=== PATIENT | male | born 1935 | race Caucasian/White ===

== ENCOUNTER 2016-10-15 18:19 | Inpatient (IN) | payer MEDICARE ==
[~2016-10-15] VITALS: Ht 172.7 cm; Wt 94.7 kg
--- NOTE | 2016-10-15 18:23 | ED.REPORT ---
HPI-General Illness Date of Service October 15, 2016 ED Provider: Dr. Kingston Pt is an 80 year old male with a hx of HTN, hyperlipidemia and DM presenting to the ED via EMS following a syncopal episode for a few minutes just prior to arrival while at rest. He denies any SOB or chest pain. He does report feeling lightheaded just before the episode and hitting his head when he lost consciousness. En route, medics performed an EKG which showed 2 runs of Vtach lasting approximately 20 beats. He had a stress test 1 week ago and was informed of results today, which showed that the lower chambers of his heart are not getting enough O2 which he was told to follow up for in the next week. Pt reports intermittent dyspnea on exertion for 1 month which is why he had the stress test. He denies any previous syncopal episodes ever before. Pt routinely takes baby aspirin, metformin, and simvastatin. Nursing Notes Stated Complaint: SYNCOPAL Chief Complaint: Syncope Nursing Notes Reviewed: Yes Allergies: Coded Allergies: No Known Allergies (Unverified Allergy, Unknown, 07/31/14) Scheduled Amlodipine (Amlodipine) 5 Mg Tablet 5 MG PO QAM Aspirin (Aspirin) 81 Mg Tablet 81 MG PO HS Chlorthalidone (Chlorthalidone) 25 Mg Tablet 25 MG PO DAILY Lisinopril (Lisinopril) 40 Mg Tablet 20 MG PO BID Metformin (Metformin) 500 Mg Tablet 250 MG PO BID Multivitamin (Multivitamins) 1 Each Capsule 1 EACH PO DAILY [place]-3/Dha/Epa/Fish Oil (Fish Oil 1,000 mg Softgel) 1 Each Capsule 1 EACH PO DAILY Simvastatin (Simvastatin) 40 Mg Tablet 40 MG PO HS General Time Seen by MD: 18:24 Chief Complaint Other (syncope) Hx Obtained From: Patient, EMS Arrived By: Ambulance Sudden in Onset?: Yes Onset Occurred: Just prior to arrival Symptom Duration: Since onset Severity: Current: No pain currently Severity: Maximum: No pain Recent Healthcare: No recent doctor visit, No recent hospitalization Similar Sx Previous: No Past Medical History Past Medical History Reports: Diabetes mellitus, Hyperlipidemia, Hypertension Past Surgical History denies Smoking History Light Tobacco Smoker (2 cigars per day) Social History Drug Use: Denies drug use Ambulatory Status Independent Review of Systems Full Review of Systems Respiratory: Reports: Dyspnea on exertion, Denies: Shortness of breath Cardiovascular: Denies: Chest pain Neurologic: Reports: Lightheaded, Syncope Complete sys rev & neg: except as marked. Physical Exam Vital Signs Vital Signs Date Time Temp Pulse Resp B/P Pulse Ox O2 Delivery O2 Flow Rate FiO2 10/15/16 20:13 76 24 157/69 93 Nasal Cannula 2 10/15/16 19:03 77 26 168/83 96 Nasal Cannula 2 10/15/16 18:30 36.7 83 27 190/75 95 Room Air Initial VS: Reviewed General/Constitutional: Well-developed, Well-nourished ENT: Mucous membranes moist, Conjunctiva normal, No scleral icterus Respiratory: Breath sounds normal, Clear to auscultation, No respiratory distress Cardiovascular: Regular rate & rhythm, Heart sounds normal, Intact distal pulses Abdomen / GI: Soft, Non-tender, No guarding, No rebound, No distention Extremities: Vascular intact, Neuro intact, No swelling, No tenderness Skin: Warm, Dry, No cyanosis Neurologic: Alert, Oriented, Nonfocal Psychiatric: Mood/affect normal, Behavior normal, Normal thought content Head / Eyes: Normocephalic, PERRL, EOMI Abrasion to left forehead Interpretation & Diagnostics Lab Results Interpretation Result Diagram: 10/17/16 0255 10/17/16 0255 Test 10/15/16 18:25 10/15/16 18:48 Prothrombin Time 10.2sec (8.1-12.5) Prothromb Time International Ratio 0.95ratio Activated Partial Thromboplast Time 29.9sec (22.8-33.0) Magnesium Level 2.5mg/dL (1.6-2.6) Pro-B-Type Natriuretic Peptide 568.8pg/mL (0-486) Urine Color Yellow (YELLOW) Urine Appearance Clear (CLEAR,HAZY) Urine pH 5.5 (5.0-8.0) Urine Specific [place] 1.020 (1.003-1.035) Urine Protein 100mg/dL (NEG,TRACE) Urine Glucose (UA) Negativemg/dL (NEGATIVE) Urine Ketones Negativemg/dL (NEGATIVE) Urine Occult Blood Negative (NEGATIVE) Urine Nitrite Negative (NEGATIVE) Urine Bilirubin Negative (NEGATIVE) Urine Urobilinogen Normalmg/dL (NORMAL) Urine Leukocyte Esterase Negative (NEGATIVE) Urine RBC 0-2/hpf (0-2) Urine WBC 0-5/hpf (0-5) Urine Epithelial Cells Occasional/hpf (NONE-MOD) Urine Crystals None seen (NONE SEEN) Urine Bacteria None/hpf (NONE-FEW) Urine Hyaline Casts None/lpf (NONE) Urine Granular Casts None seen (NONE SEEN) Urine Waxy Casts None seen (NONE SEEN) Urine Red Blood Cell Casts None seen (NONE SEEN) Urine White Blood Cell Casts None seen (NONE SEEN) Urine Mucus None seen (None Seen) Urine Trichomonas None seen (NONE SEEN) Urine Yeast None (NONE SEEN) Urinalysis Comment None Urine Culture Reflexed Not indicated ECG Interpretation ECG Interpretation: Prolonged IN interval. LBBB which is new. QRS 118 previously, 117 by EMS. Now 126. Inverted T wave in lead 3 which is new compared to January 2013. Time: 18:30 Interpreted by: ED physician Normal ECG Interpretation: Normal rate (82), Normal sinus rhythm ECG Interpretation: Sinus tachycardia. PVCs. Intraventricular conduction delay. Rate 95. Time: 19:53 Interpreted by: ED physician X-Ray Chest Interpretation Chest Xray Interpretation: IMPRESSION: No acute intrathoracic pathology. Dictated by: Marco Antonio Givens M.D. on 10/15/2016 at 19:07 View: Portable, 1 view Interpretation / Wet Read by: Interpret - Radiologist CT Head Interpretation IMPRESSION: No CT evidence of acute intracranial pathology. Dictated by: Marco Antonio Givens M.D. on 10/15/2016 at 19:21 Study: Head CT no contrast Interpretation / Wet Read by: Interpret - Radiologist Re-Eval/Medical Decision Med Decision/Clinical Course 80-year-old male with a history of hypertension, diabetes, hyperlipidemia, tobacco dependence, and a recent abnormal stress test presents with exertional dyspnea for the past month and an episode of syncope just prior to arrival. His monitor shows runs of monomorphic V. tach up to 20 beats several times in the ambulance. He was initially asymptomatic here, however his EKG reveals a new ?left bundle branch block and inverted T wave in lead 3 which is new when compared with an EKG in 2013. I reviewed his recent echocardiogram and stress test that showed a large fixed inferior defect and also moderate inferolateral reperfusion noted. There is an inferior wall motion defect and ejection fraction consistent with the echo was 45%. Note also on echo that the inferior wall was thin and scarred appearing. I spoke with Dr. Sheriff in cardiology who recommends not going to the Systems Test Analyst because he is not currently short of breath or having chest pain and is otherwise asymptomatic. He will be admitted for further workup with cardiology consult. Dr. Sheriff recommend CK-MB and troponin now and at 3 hours and patient was given metoprolol IV to lower his blood pressure as well as an aspirin on arrival. After reviewing the EKG he did not believe that it was truly a left bundle branch block and rather it was an intraventricular conduction delay just slightly more than the previous EKG After this consultation the patient did have a longer run of monomorphic ventricular tachycardia and became symptomatic with chest pain and shortness of breath stating that he "felt awful" I spoke with Dr. Anil Diamond in cardiology who recommended amiodarone bolus of 150 mg followed by a drip of 1 mg/m for 6 hours followed by 1/2 mg per minute for the next 18 hours. He noted that if the patient had worsening symptoms Dr. Sheriff should be re-consulted. Dr. Maldonado was to see the patient in the morning. Initial troponin and CK-MB returned normal I spoke with Dr. Sheriff at the patient had a second round of symptomatic sustained ventricular tachycardia converted without intervention. He recommended observing after the amiodarone was given but did not advise cardiac catheterization at that time. Patient had no further episodes while in the ER and he was admitted to the hospitalist service Time of Eval: 19:40 Patient Status: Condition improved Re-Evaluation/Progress Note: Pt denies any CP or SOB. Pt had run of Vtach while in the room. Discussed consultation with bag checker and plan for admission. Pt understands and agrees with plan. Time of Eval: 19:49 Patient Status: Condition improved Re-Evaluation/Progress Note: Pt had an episode of symptomatic sustained Vtach with CP and SOB. Time of Eval: 19:51 Patient Status: Condition improved Re-Evaluation/Progress Note: Pt had another short episode of Vtach. Time of Eval: 20:58 Patient Status: Condition improved Re-Evaluation/Progress Note: Pt feeling back to baseline, no other episodes of Vtach. Discussed previous cardiac history. Consultation #1: Referral / Consult Name: Allan Sheriff MD Consulted With: Cardiology Call Returned at: 18:44 Winch Derrick Operator: Will see patient, Agrees with plan Note: Recommends that we get a CKMB now and again in 3 hours. Consultation #2: Referral / Consult Name: Randolph Diamond MD Consulted With: Cardiology Call Returned at: 19:43 Note: Give Amiodarone now and Dr. Maldonado will see him in the morning. Speak to Dr. Sheriff again if pt becomes symptomatic. Consultation #3: Referral / Consult Name: Allan Sheriff MD Consulted With: Cardiology Call Returned at: 19:52 Note: Discussed administration of Amiodarone and recent runs of Vtach. Discussed lab results. Take the pt to the terrazzo laborer if he is still symptomatic after the Amiodarone. Consultation #4: Referral / Consult Name: Safia Medley DO Consulted With: Hospitalist Call Returned at: 21:00 Winch Derrick Operator: Will see patient, Agrees with plan, Accepts admit Counseled Regarding: Diagnosis, Lab results, Need for follow-up, When/why to return to ED Discharge & Departure Primary Impression: Ventricular tachycardia Additional Impressions: Syncope Syncope type: heat syncope Encounter type: initial encounter Qualified Code : T67.1XXA - Heat syncope, initial encounter Exertional dyspnea Coronary artery disease Coronary Disease-Associated Artery/Lesion type: [place] artery [place] vs. transplanted heart: [place] heart Associated angina: with other forms of angina Qualified Code: I25.118 - Atherosclerotic heart disease of [place] coronary artery with other forms of angina pectoris Hypertensive urgency Diabetes mellitus Diabetes mellitus type: type 2 Diabetes mellitus complication status: with circulatory complication Diabetes mellitus complication detail: with other circulatory complications Diabetes mellitus ferry terminal agent insulin use: without alf use Qualified Code: E11.59 - Type 2 diabetes mellitus with other circulatory complications Disposition: ADMITTED TO HOSPITAL Discharge Condition All VS Reviewed: Yes Condition: Improved Referrals: Ramirez Shane MD (PCP) Crit Care Except Billable Proc Time Spent: 30-74 minutes Services Performed: Patient management by me, Time spent at bedside, Reviewing test results, Reviewing imaging, Discussing patient care, Documentation in record, Time with fam/surrogate Critical Care Notes: Patient with multiple cardiac risk factors and recently diagnosed coronary artery disease presenting with recurrent episodes of monomorphic ventricular tachycardia, requiring multiple cardiology consults and emergent treatment with amiodarone to stop his recurrent ventricular tachycardia. Scribe Attestation Portions of this note were transcribed by Lina Mead. IDr. Kingston personally performed the history, physical exam and medical decision-making; I reviewed and confirmed the accuracy of the information in the transcribed note. Signed by: Lina Nishant Mead, 10/15/2016 at 2118. copies to: Ramirez Shane MD, Gary R DO October 15, 2016 18:23 BOSTONRAMIREZ RUCKERNAH October 15, 2016 18:32 Time of Eval: 19:40 Patient Status: Condition improved Re-Evaluation/Progress Note: Pt denies any CP or SOB. Pt had run of Vtach while in the room. Discussed consultation with bag checker and plan for admission. Pt understands and agrees with plan. Time of Eval: 19:49 Patient Status: Condition improved Re-Evaluation/Progress Note: Pt had an episode of symptomatic sustained Vtach with CP and SOB. Time of Eval: 19:51 Patient Status: Condition improved Re-Evaluation/Progress Note: Pt had another short episode of Vtach. Time of Eval: 20:58 Patient Status: Condition improved Re-Evaluation/Progress Note: Pt feeling back to baseline, no other episodes of Vtach. Discussed previous cardiac history. Consultation #1: Referral / Consult Name: Allan Sheriff MD Consulted With: Cardiology Call Returned at: 18:44 Winch Derrick Operator: Will see patient, Agrees with plan Note: Recommends that we get a CKMB now and again in 3 hours. Consultation #2: Referral / Consult Name: Randolph Diamond MD Consulted With: Cardiology Call Returned at: 19:43 Note: Give Amiodarone now and Dr. Maldonado will see him in the morning. Speak to Dr. Sheriff again if pt becomes symptomatic. Consultation #3: Referral / Consult Name: Allan Sheriff MD Consulted With: Cardiology Call Returned at: 19:52 Note: Discussed administration of Amiodarone and recent runs of Vtach. Discussed lab results. Take the pt to the terrazzo laborer if he is still symptomatic after the Amiodarone. Consultation #4: Referral / Consult Name: Safia Medley DO Consulted With: Hospitalist Call Returned at: 21:00 Winch Derrick Operator: Will see patient, Agrees with plan, Accepts admit Counseled Regarding: Diagnosis, Lab results, Need for follow-up, When/why to return to ED Discharge & Departure Primary Impression: Ventricular tachycardia Disposition: ADMITTED TO HOSPITAL Discharge Condition All VS Reviewed: Yes Condition: Improved Referrals: Ramirez Shane MD (PCP) Crit Care Except Billable Proc Time Spent: 30-74 minutes Services Performed: Patient management by me, Time spent at bedside, Reviewing test results, Reviewing imaging, Discussing patient care, Documentation in record, Time with fam/surrogate Scribe Attestation Portions of this note were transcribed by Lina Mead. Dr. Vashti Briscoe personally performed the history, physical exam and medical decision-making; I reviewed and confirmed the accuracy of the information in the transcribed note. Signed by: Nishant Andrews, 10/15/2016 at 2118. copies to: Ramirez Shane MD, Gary R DO October 15, 2016 18:23 LINA MEAD October 15, 2016 18:32 Ramirez Shane MD (PCP) Crit Care Except Billable Proc Time Spent: 30-74 minutes Services Performed: Patient management by me, Time spent at bedside, Reviewing test results, Reviewing imaging, Discussing patient care, Documentation in record, Time with fam/surrogate Scribe Attestation Portions of this note were transcribed by Lina Mead. Dr. Vashti Briscoe personally performed the history, physical exam and medical decision-making; I reviewed and confirmed the accuracy of the information in the transcribed note. Signed by: Nishant Andrews, 10/15/2016 at 2118. copies to: Ramirez Shane MD, Gary R DO October 15, 2016 18:23 LINA MEAD October 15, 2016 18:32
[2016-10-15 18:30] VITALS: BP 190/75; PULSE 83; RESP 27; O2SAT 95
[2016-10-15] MEDS ORDERED: 0.9% Sodium Chloride 1,000 ML IV ONE (18:39)
[2016-10-15] MEDS ORDERED: MeTOProlol 1 mg/mL 5 mL Inj IVPUSH PRN (18:40)
[2016-10-15 18:48] LABS: BASOPHILS % (AUTO) 0.3 % (0-3); EOSINOPHILS % (AUTO) 2.7 % (0-5); MONOCYTES % (AUTO) 9.7 % (4-12); Mean Corpuscular Hemoglobin 30.9 pg (27.0-35.0); Mean Corpuscular Volume 85.5 fL (81-100); NEUTROPHILS % (AUTO) 49.6 % (40-74); Platelet Count 325 bil/L (150-400)
[2016-10-15 18:52] LABS: INR 0.95 ratio
[2016-10-15 18:59] LABS: Magnesium 2.5 mg/dL (1.6-2.6)
[2016-10-15 19:02] LABS: TROPONIN T < 0.010 ug/L (0.0-0.011)
[2016-10-15 19:03] VITALS: BP 168/83; PULSE 77; RESP 26; O2SAT 96
--- NOTE | 2016-10-15 19:10 | DRSVH ---
PROCEDURE: X-RAY CHEST ONE VIEW, PORTABLE ([id number]) INDICATIONS: syncope TECHNIQUE: One view of the chest was acquired. COMPARISON: None. FINDINGS: Surgical changes and devices: Tubing projects over the heart. Defibrillator pad. Lungs and pleura: No pleural effusions or pneumothorax. Lungs are clear. Mediastinum: Mediastinal contours appear normal. Heart size is normal. Vascular calcifications. Bones and chest wall: No suspicious bony lesions. Overlying soft tissues appear unremarkable. IMPRESSION: No acute intrathoracic pathology. Dictated by: Marco Antonio Givens M.D. on 10/15/2016 at 19:07 Approved by: Marco Antonio Givens M.D. on 10/15/2016 at 19:08
[2016-10-15 19:15] LABS: Creatine Kinase 128 U/L (21-232)
--- NOTE | 2016-10-15 19:24 | DRSVH ---
PROCEDURE: CT BRAIN WITHOUT CONTRAST ([id number]) INDICATIONS: syncopal episode with head trauma TECHNIQUE: Noncontrast 4.5 mm thick angled axial sections acquired from the foramen magnum to the vertex, with c oronal reformats. COMPARISON: None. FINDINGS: Image quality: Excellent. CSF spaces: Basal cisterns are patent. No extra-axial fluid collections. Ventricles are normal in size and shape. Brain: No midline shift. No intracranial masses or hemorrhage. Chase-white matter interface is norm al. Skull and face: Calvarium and visualized facial bones are intact, without suspicious lesions. Sinuses: Visualized sinuses and mastoids are clear. IMPRESSION: No CT evidence of acute intracranial pathology. Dictated by: Marco Antonio Givens M.D. on 10/15/2016 at 19:21 Approved by: Marco Antonio Givens M.D. on 10/15/2016 at 19:23
[2016-10-15] MEDS ORDERED: Amiodarone 150 mg/100 mL D5W 150 MG in IV Premix 1 EACH IV ONE (19:50)
[2016-10-15] MEDS ORDERED: ATEN50TA PO (19:53)
[2016-10-15] MEDS ORDERED: MULT1CAP33 PO (19:53)
[2016-10-15] MEDS ORDERED: HYG25 PO (19:53)
[2016-10-15] MEDS ORDERED: OMEG-38 PO (19:53)
[2016-10-15] MEDS ORDERED: METF500T4 PO (19:53)
[2016-10-15] MEDS ORDERED: AMLO5TAB2 PO (19:53)
[2016-10-15] MEDS ORDERED: LISI40TA PO (19:53)
[2016-10-15] MEDS ORDERED: ASPI-973 PO (19:53)
[2016-10-15] MEDS ORDERED: SIMV40TA5 PO (19:53)
[2016-10-15 20:13] VITALS: BP 157/69; PULSE 76; RESP 24; O2SAT 93
[2016-10-15 20:57] LABS: APPEARANCE,URINE CLEAR (CLEAR,HAZY); COLOR,URINE YELLOW (YELLOW); OCCULT BLOOD,URINE NEGATIVE (NEGATIVE); PH,URINE 5.5 (5.0-8.0); UROBILINOGEN,URINE NORMAL (NORMAL)
[2016-10-15 21:01] VITALS: BP 178/78; PULSE 71; RESP 27; O2SAT 92
[2016-10-15] MEDS ORDERED: Amiodarone 360 mg/200 mL D5W 360 MG, Filter, Taxol 14256-28 1 EACH in IV Premix 1 EACH IV SCH (21:10)
[2016-10-15] MEDS ORDERED: D5 0.45% NaCl + KCl 20 mEq/L 1,000 ML IV SCH (21:16)
[2016-10-15] MEDS ORDERED: Alum-Mag Hydrox-Simeth 30 mL Suspension PO PRN (21:20)
[2016-10-15] MEDS ORDERED: Polyethylene Glycol (PEG) 17 Gm Powder PO PRN (21:20)
[2016-10-15] MEDS ORDERED: Ondansetron 2 mg/mL 2 mL Inj IVPUSH PRN (21:20)
[2016-10-15] MEDS ORDERED: Amiodarone 360 mg/200 mL D5W Premix IV ONE (21:34)
[2016-10-15] MEDS ORDERED: IV Premix 1 EACH IV ONE (21:34)
[2016-10-15 22:20] LABS: Creatine Kinase 112 U/L (21-232)
[2016-10-15 22:46] VITALS: BP 166/79; PULSE 81; RESP 24; O2SAT 92
[2016-10-16] VITALS (18 sets, daily range): BP systolic 140–178; BP diastolic 48–83; PULSE 60–70; RESP 19–28; O2SAT 87–98
--- NOTE | 2016-10-16 00:36 | PCM.HPMED ---
Subjective Date of Service October 15, 2016 Primary Provider: Admitting Physician: Safia Medley DO Primary Care Physician: Ramirez Shane MD Attending Physician: Safia Medley DO Admit Status: From the Emergency Department, [facility] Telemetry Chief Complaint: Syncope History of Present Illness: Pt is an 80 year old male with a hx of HTN, hyperlipidemia and DM, tobacco dependence, and a recent abnormal stress test presents to ED via EMS following a syncopal episode for a few minutes just prior to arrival while at rest. Patient reports of having exertional dyspnea for the past month. He denies any SOB or chest pain. He does report feeling lightheaded just before the episode and hitting his head when he lost consciousness. En route, medics performed an EKG which showed 2 runs of V-tach lasting approximately 20 beats. He had a stress test 1 week ago and was informed of results today, which showed that the lower chambers of his heart are not getting enough O2 which he was told to follow up for in the next week. Pt reports intermittent dyspnea on exertion for 1 month which is why he had the stress test. He denies any previous syncopal episodes ever before. Pt routinely takes baby aspirin, metformin, and simvastatin. In the ED vitals T 36.7, P 83, RR 27, BP 190/75, oxygen 95% on room air. Labs significant for WBC 13.1, BUN/creatinine 39, creatinine 1.56, glucose 158. Magnesium 2.5. Troponin 1 negative. UA negative. Chest x-ray and CT head with no acute findings. ECG showed prolonged AL interval. New onset LBBB. QRS 126. Inverted T-wave in lead 3, new findings compared to January 2013. Second ECG showed sinus tachycardia. PVCs. Intraventricular conduction delay. Rate 95. His monitor showed runs of V. tach up to 20 beats several times in the ambulance. Patient has been asymptomatic since arrival. EKG revealing new left bundle branch block and inverted T-wave in V3, new findings when compared with EKG in 2012. Dr. Sheriff of cardiology is consulted, catheterization not recommended at this time due to patient not currently short of breath or having any chest pain. To be admitted for further workup with cardiology consult in the morning. Repeat CK-MB and troponin ordered for 3 hours later. Patient given aspirin on arrival and metoprolol IV for elevated blood pressures. Patient had an episode of symptomatic sustained Vtach with CP and SOB. Dr. Sheriff notified. PCP: Dr. Ramirez Shane Stress test from 10/07/16 IMPRESSION: Nonspecific electrocardiogram changes with pharmacologic stress with baseline height and blunted chronotropic response to exercise noted. Moderately enlarged ventricle with posterior and lateral wall motion abnormality with a reduced ejection fraction of 41% Moderately large inferior and lateral region of perfusion abnormality with moderate improvement in the mild and distal segments of the posterolateral wall with severe fixed hypoperfusion of the basal segments of the inferior and posterior wall. DISCUSSION: This is a abnormal nuclear study suggesting previous infarction in the territory of the distal circumflex or right coronary artery with a moderate amount of residual ischemia. Review of Systems: Respiratory: Reports: Dyspnea on exertion, Denies: Shortness of breath Cardiovascular: Denies: Chest pain Neurologic: Reports: Lightheaded, Syncope Complete sys rev & neg: except as marked. A comprehensive review of systems has been conducted with the patient and found to be negative except what is mentioned above or in the HPI. Allergies Coded Allergies: No Known Allergies (Unverified Allergy, Unknown, 07/31/14) Home Medications Amlodipine (Amlodipine) 5 Mg Tablet 5 MG PO QAM Aspirin (Aspirin) 81 Mg Tablet 81 MG PO HS Atenolol (Atenolol) 50 Mg Tablet 50 MG PO DAILY Chlorthalidone (Chlorthalidone) 25 Mg Tablet 25 MG PO DAILY Lisinopril (Lisinopril) 40 Mg Tablet 20 MG PO BID Metformin (Metformin) 500 Mg Tablet 250 MG PO BID Multivitamin (Multivitamins) 1 Each Capsule 1 EACH PO DAILY [place]-3/Dha/Epa/Fish Oil (Fish Oil 1,000 mg Softgel) 1 Each Capsule 1 EACH PO DAILY Simvastatin (Simvastatin) 40 Mg Tablet 40 MG PO HS PMH Diabetes mellitus, Hyperlipidemia, Hypertension CKD stage III CAD EVON Surgical History Carotid endarterectomy on right 1996 Family History Family history of hypertension, heart disease Father with CAD Mother with hypertension and renal disease Sister with alcoholism Social History Hx Alcohol Use: No Hx Substance Use: No Hx Tobacco Use: Yes Smoking Status: Light Tobacco Smoker Exam Vital Signs Vital Sign - Last Date Time Temp Pulse Resp B/P Pulse Ox O2 Delivery O2 Flow Rate FiO2 10/15/16 21:01 71 27 178/78 92 Nasal Cannula 2 10/15/16 18:30 36.7 Exam General: Mild distress, well-developed, well-nourished, appropriately interactive and cooperative HEENT: Normocephalic, abrasion noted on left forehead. PERRL. Anicteric sclerae , moist conjunctivae. Moist mucous membranes. Neck: Supple with full range of motion. No JVD. Cardiovascular: Irregular rate and rhythm, no murmurs, rubs, or gallops appreciated. pulses equal upper and lower extremity Pulmonary: Clear to auscultation bilaterally with no crackles, wheezes, or rhonchi. Normal respiratory effort with no use of accessory muscles. GI: Bowel tones present. Soft, nontender, nondistended. No hepatosplenomegaly or masses appreciated. Extremities: No clubbing, cyanosis, edema Skin: Normal temperature, turgor, and texture; no rash, ulcers MSK: no edema or erythema of joints, normal ROM Lymphathic: no cervical or supraclavicular lymphadenopathy Neurological: Alert, oriented. non focal. Psychiatric: Normal mood and affect. Lab and Diagnostics Result Diagram: 10/15/16182410/15/161824 X-Rays, CTs and MRIs Chest Xray Interpretation: IMPRESSION: No acute intrathoracic pathology. Dictated by: Marco Antonio Givens M.D. on 10/15/2016 at 19:07 View: Portable, 1 view Interpretation / Wet Read by: Interpret - Radiologist CT Head Interpretation IMPRESSION: No CT evidence of acute intracranial pathology. Dictated by: Marco Antonio Givens M.D. on 10/15/2016 at 19:21 Study: Head CT no contrast Interpretation / Wet Read by: Interpret - Radiologist 12-lead ECG ECG Interpretation: Prolonged AL interval. LBBB which is new. QRS 118 previously, 117 by EMS. Now 126. Inverted T wave in lead 3 which is new compared to January 2013. Time: 18:30 Interpreted by: ED physician Normal ECG Interpretation: Normal rate (82), Normal sinus rhythm ECG Interpretation: Sinus tachycardia. PVCs. Intraventricular conduction delay. Rate 95. Time: 19:53 Interpreted by: ED physician Assessment & Plan Pt is an 80 year old male with a hx of HTN, hyperlipidemia and DM, tobacco dependence, and a recent abnormal stress test presents to ED via EMS following a syncopal episode for a few minutes just prior to arrival while at rest with subsequent EKG and further episodes of VT. Syncope, acute -likely secondary to VT -treat as below Ventricular tachycardia present on admission. Acute. - EKG and telemetry tracings reviewed with runs of VT - Amiodarone bolus/drip started, to be continued - Telemetry - NPO - hold metformin, lisinopril, atenolol to be switched to metoprolol - Repeat CK/MB, troponin both negative - Trend troponin - Echocardiogram in a.m. (ordered) - Patient seen by Dr. Sheriff this evening, Dr. Maldonado to see patient in am - Appreciate cardiology consult time and expertise Chronic conditions: Diabetes mellitus, most recent A1c at 7.0 in Sep, 2016 - metformin held Hyperlipidemia - continue home meds simvastatin Hypertension - continue home in amlodipine, chlorthalidone,lisinopril CKD stage III - BUN/Cr currently at baseline - IVF CAD - continue home meds atenolol, simvastatin, lisinopril EVON Acetaminophen-fever/headache/mild/moderate pain Antiemetics, as needed Bowel regimen, as needed. Patient status: Patient was admitted under inpatient status with expected length of stay greater than two midnights due to severity of presenting symptoms , risk of adverse event, and complexity of treatment plan. Pain Evaluation: Adequate Pain Control GI Prophylaxis: Not indicated VTE Prophylaxis: Sub-Q Heparin (Unfractionated) Resuscitation Status: CPR: Attempt Resuscitation Attending Statement The patient was seen and examined together with house staff on 10/15/2016 and I agree with the history, exam and plan as outlined in the note above. Teresa Kelley DO October 15, 2016 21:16 Safia Medley DO October 16, 2016 04:02 Patient status: Patient was admitted under inpatient status with expected length of stay greater than two midnights due to severity of presenting symptoms , risk of adverse event, and complexity of treatment plan. Pain Evaluation: Adequate Pain Control GI Prophylaxis: Not indicated VTE Prophylaxis: Sub-Q Heparin (Unfractionated) Resuscitation Status: CPR: Attempt Resuscitation Teresa Kelley DO October 15, 2016 21:16
[2016-10-16] MEDS ORDERED: Amiodarone 150 mg/100 mL D5W Premix IV ONE (00:53)
[2016-10-16] MEDS ORDERED: IV Premix 1 EACH IV ONE ×3 (00:53→13:11)
[2016-10-16] MEDS ORDERED: Amiodarone 150 mg/100 mL D5W IV ONE (00:55)
[2016-10-16] MEDS: Heparin 5,000 Unit/mL Inj SUBQ SCH ×4 (01:28→23:59)
[2016-10-16] MEDS ORDERED: 0.9% Sodium Chloride 1,000 ML IV ONE ×2 (02:06→16:39)
[2016-10-16] MEDS: 0.9% Sodium Chloride 1,000 ML IV SCH ×3 (02:34→21:41)
[2016-10-16 03:24] LABS: BASOPHILS % (AUTO) 0.2 % (0-3); EOSINOPHILS % (AUTO) 1.5 % (0-5); MONOCYTES % (AUTO) 9.1 % (4-12); Mean Corpuscular Hemoglobin 30.9 pg (27.0-35.0); Mean Corpuscular Volume 88.7 fL (81-100); NEUTROPHILS % (AUTO) 65.4 % (40-74); Platelet Count 250 bil/L (150-400)
[2016-10-16] MEDS ORDERED: Amiodarone 360 mg/200 mL D5W Premix IV ONE ×2 (04:08→13:11)
--- NOTE | 2016-10-16 04:10 | CONS ---
[address] [address] CONSULTATION REPORT PATIENT: GEETA REED : 1935 MR#: [id number] ADMIT: 10/15/2016 JOB ID: [id number] DATE OF SERVICE: 10/16/2016 CARDIOLOGY CONSULTATION--INITIAL CRITICAL CARE EVALUATION: DATE OF EVALUATION: Sunday, October 16, 2016. CARDIAC CONSULTING PHYSICIAN: Cardiology--Allan Sheriff MD. PROBLEMS: 1. Ventricular tachycardia: a. Syncope--admitted after an episode of syncope at rest this evening. b. Recurrent ventricular tachycardia--long self terminating symptomatic runs with documented and including chest discomfort (200 BPM). c. Monomorphic ventricular tachycardia. 2. Probable coronary artery disease: 1. a. Recent clinical evaluation for new onset exertional dyspnea. b. Abnormal myocardial perfusion scan--ejection fraction 41% with inferior lateral wall motion defect and inferolateral fixed defect and inferolateral ischemia. c. Echocardiogram suggestive of prior myocardial infarction in the akinetic inferior lateral agarwal and mild aortic stenosis and moderate mitral regurgitation. CORONARY ARTERY DISEASE RISK FACTORS: 1. Diabetes--type 2 diabetes for six years with HbA1c 7 and peripheral neuropathy, chronic kidney disease. 2. Cigarettes smoking--remote one pack a day for 25 years and current cigar smoking. 3. History of hypertension--currently significant systolic hypertension noted. Systolic blood pressure 160. 4. History of treated hyperlipidemia. FAMILY HISTORY: Premature coronary disease--father of myocardial infarction at age 57. OTHER PROBLEMS: 1. Obesity and obstructive sleep apnea using CPAP. 2. Peripheral vascular disease--remote carotid endarterectomy over 25 years ago with followup carotid ultrasound on 2013 showing bilateral carotid stenosis 50-69%. 3. "Peripheral neuropathy"--right quadriceps weakness. 4. Chronic kidney disease--baseline creatinine about 1.6. CHIEF COMPLAINT: 1. "Left bundle branch block." 2. Ventricular tachycardia. HISTORY OF PRESENT ILLNESS: I saw this patient on the telemetry unit PCU urgently this evening, Saturday, October 15, 2016, because of recurrent runs of ventricular tachycardia. He had been admitted earlier in the evening after initial presentation by EMS to the emergency department when he fainted without premonitory symptoms while eating dinner at a local restaurant. He has been undergoing a recent work up because of a six week history of new exertional dyspnea. In fact, he had just visited his primary care physician, Dr. 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 The patient tells me he was eating dinner this evening at a restaurant. He felt lightheaded, presyncopal and then fainted. He had a bruise on his forehead. He had no incontinence. 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 He has no prior history of arrhythmia or prior symptoms of arrhythmia such as tachy palpitation, presyncope or syncope. He has been having recurrent episodes of ventricular tachycardia in the hospital including runs up to 18 seconds at 200 BPM, during which time he feels very poorly, nauseous and has some mild associated chest pressure. Initially, the arrhythmia may have been controlled by a 150 mg bolus of amiodarone; but then there was a hiatus before starting and he had subsequent shorter episodes. CAD: The current workup suggests underlying coronary disease. He has no prior defined history of coronary disease. He saw his doctor because he has developed exertional dyspnea in the last six weeks that has limited him at a mowing his lawn and walking uphill from the mailbox. He has not had other symptoms of heart failure such as nocturnal dyspnea or edema. Although he does not complain of chest discomfort initially, on questioning he may note mild retrosternal chest discomfort associated with his dyspnea. He has not had severe prolonged or resting episodes. Regarding possible other underlying vascular disease, he has a history of carotid endarterectomy in the remote past, but he does not have a history of CVA or current symptoms of TIA. No claudication. Regarding possible dual antiplatelet therapy, he has no current bleeding symptoms, no anticipated upcoming surgery and he reports he is reliable to take mandatory medicines as needed. ALLERGIES: No known drug allergies. I elicit no allergy to medical contrast, seafood, fish or shellfish. MEDICATIONS: 1. Norvasc 5 mg daily. 2. ASA 81 mg daily. 3. Atenolol 50 mg daily. 4. Chlorthalidone 25 mg daily. 5. Fish oil 1000 mg daily, 6. Lisinopril 40 mg daily. 7. Metformin 500 mg daily. 8. Multivitamin. 9. Simvastatin 40 mg daily. PAST MEDICAL HISTORY: Acute osteoarthritis with knee pain. REVIEW OF SYSTEMS: I questioned him about a 13 point review of systems which is unremarkable, noncontributory or negative except as noted including: No constitutional symptoms. No history of thyroid disorder. No history of pulmonary disorder including emphysema or asthma or wheezing. No history of GI disorder including indigestion, hepatitis jaundice or ulcer. PERSONAL AND SOCIAL HISTORY: Alcohol: He reports occasional alcohol use, including wine with dinner and an occasional scotch. Family: She lives with his and has three children including two locally. 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 FAMILY HISTORY: Premature coronary disease in the father. PHYSICAL EXAMINATION: General appearance: A pleasant, robust appearing elderly man who is comfortable at rest on the telemetry. He has frequent nonsustained runs of ventricular tachycardia and one long self terminating run without that he noted symptomatically. Vital signs. Blood pressure 160/58 with a heart rate 81 regular in sinus rhythm. Respiratory rate 20 and he appears mildly dyspneic. SpO2 87 and 92% on 4 L nasal cannula. Afebrile. Weight 95 kg. Neurologic and mental status: No overt focal neurologic defect noted. He is alert, oriented, appropriate and conversant. HEENT: PERRL. Conjunctivae pink. Sclerae not icteric. Mouth and mucous membranes intact. Neck: Carotid upstroke difficult to feel bilaterally, but no bruit. Note right carotid endarterectomy scar. Jugular venous pressure difficult to assess due to habitus. No palpable cervical lymphadenopathy. No palpable thyromegaly. Lungs: Clear to auscultation bilaterally. Cardiac: No chest wall tenderness. Note distant heart sounds. Regular rhythm and there is no loud murmur heard. Abdomen: Markedly obese but otherwise unremarkable examination without tenderness, mass, hepatosplenomegaly or bruit of abdominal aortic aneurysm. Extremities: No edema. Pedal pulses difficult to feel bilaterally. DIAGNOSTIC STUDIES: ELECTROCARDIOGRAM: I reviewed the serial ECGs done including a prior ECG and current ECGs which show mild nonspecific IVCD. There was an initial question of new left bundle branch block but the ECG is very similar to prior ECGs and not typical of left bundle branch block. Note sinus rhythm with underlying first degree heart block and a nondiagnostic Q-wave in lead 3 that may correlate with his apparent prior clinically unrecognized inferior myocardial infarction. QT intact. CHEST X-RAY: The chest x-ray film shows cardiomegaly and borderline pulmonary venous hypertension but no overt heart failure. LABORATORY: CBC includes WBC 13,100 with hemoglobin 14.7, hematocrit 40.7, normal indices and platelet count 225,000. INR 0.95. Chemistries include potassium 4.2, BUN 39, creatinine 1.56. Estimated GFR 46. Glucose 158. Magnesium 2.5. LFT unremarkable. Initial serial cardiac enzymes done twice include normal CK total 128, normal CK-MB 4.2 and normal troponin less than 0.010. BNP elevated at 568. ECHOCARDIOGRAM: I reviewed the report of the echocardiogram done March 2016 that shows mild to moderate left ventricular dysfunction with ejection fraction 41% and inferior lateral wall motion defect. There is also mild aortic stenosis with mean aortic valve gradient 13 and calculated JUAN 1.4, as well as report of moderate mitral regurgitation and diastolic dysfunction. MYOCARDIAL PERFUSION SCAN: I reviewed the report of a recent myocardial perfusion scan. He had a limited exercise ability and converted to Lexiscan. There was a large fixed inferior defect and also moderate inferolateral reperfusion noted. There is an inferior wall motion defect and ejection fraction consistent with the echo was 45%. Note also on echo that the inferior wall was thin and scarred appearing. ASSESSMENT: I discussed the findings, impressions and management considerations with the patient (no family present), with the emergency department staff and with the hospitalist team includin. Symptomatic ventricular tachycardia with syncope and recurrent ventricular tachycardia: He had syncope this evening and a it appears highly likely to be due to the documented very rapid ventricular tachycardia and ventricular tachycardia appears to be monomorphic and may be associated with prior scar as well as current ischemia. It appears to be initially clinically controlled by amiodarone. We discussed the high risk associated with this symptomatic life threatening tachycardia. Electrolytes appear to be in order. Treatment considerations include additional amiodarone and also lidocaine and beta-lenny can be can be used if needed. Workup will focus on evaluation of his coronary disease and then consideration of electrophysiology evaluation including for defibrillator. 2. CAD: The current clinical impression is high likelihood of coronary disease that may be a factor in his ventricular tachycardia as well. In the setting of diabetes and clinical evidence of prior inferior infarction, there is a high likelihood of multivessel disease that may even raise consideration of coronary bypass. Evaluation will proceed with cardiac catheterization. I discussed with him the recommendation to proceed to urgent coronary angiogram for definitive diagnosis and to guide treatment options including medical therapy, percutaneous coronary intervention or transfer for coronary bypass surgery if needed. We discussed the procedure including risks and complications. We discussed bleeding, infection, blood clots as well as injury to nerve. artery, vein or kidney and also arrhythmia, drug reaction or others. We discussed the increased risk of renal injury in the setting of diabetes and chronic kidney disease. We discussed treatment as needed including surgery, pacemaker, transfusion. We also discussed more serious complications that can occur including stroke, heart attack, cardiac arrest, or emergency surgery including transfer for coronary bypass surgery. After discussion and questions he signed informed consent to proceed. RECOMMENDATIONS: 1. CCU level care with defibrillator patches. 2. Coronary angiogram--plan catheterization in a.m. or more urgently if needed. 3. Hydration prior to catheterization in view of his chronic kidney disease and monitor for heart failure given his mild dyspnea, even though there is no overt heart failure now. 4. OMT--optimal guideline directed medical therapy including aspirin, beta lenny to metoprolol, high intensity statin with Lipitor 80 mg daily, hold BENITA inhibitor prior to catheterization. 5. Ventricular tachycardia--continue amiodarone IV loading protocol and consider if needed to use additional amiodarone IV as well as lidocaine and beta lenny.
[2016-10-16] MEDS: Sodium Chloride LOK Flush 10 mL Syringe IVFLUSH SCH ×3 (08:30→23:59)
--- NOTE | 2016-10-16 09:47 | PCM.PNMED ---
Subjective Date of Service October 16, 2016 Subjective Pt is an 80 year old male with a hx of HTN, hyperlipidemia and DM, tobacco dependence, and a recent abnormal stress test presents to ED via EMS following a syncopal episode for a few minutes just prior to arrival while at rest. Patient reported of having exertional dyspnea for the past month. He reports that he has not had chest pain, dyspnea, or palpitations since around midnight. He feels better this morning. Exam Vital Signs Vital Sign - Last Date Time Temp Pulse Resp B/P Pulse Ox O2 Delivery O2 Flow Rate FiO2 10/16/16 05:33 60 10/16/16 04:51 36.9 19 140/48 95 Nasal Cannula 4.00 Intake and Output 10/15/16 10/15/16 10/16/16 Cumulative From/Thru 15:00 23:00 07:00 10/15/16 18:30 - 10/16/16 06:25 Intake Total 1000 ml 811 ml 1811 ml Output Total 1150 ml 1150 ml Balance 1000 ml -339 ml 661 ml Intake Oral 0 ml 0 ml IV Total 1000 ml 811 ml 1811 ml Output Urine Total 1150 ml 1150 ml Exam General: No acute distress, well-developed, well-nourished, appropriately interactive and cooperative HEENT: Normocephalic, abrasion noted on left forehead. PERRL. Anicteric sclerae , moist conjunctivae. Moist mucous membranes. Neck: Supple with full range of motion. No JVD. Cardiovascular: Regular rate and rhythm, no murmurs, rubs, or gallops appreciated. pulses equal upper and lower extremity Pulmonary: Clear to auscultation bilaterally with no crackles, wheezes, or rhonchi. Normal respiratory effort with no use of accessory muscles. GI: Bowel tones present. Soft, nontender, nondistended. Extremities: No clubbing, cyanosis, edema Skin: Normal temperature, turgor, and texture; no rash, ulcers MSK: no edema or erythema of joints, normal ROM Lymphathic: no cervical or supraclavicular lymphadenopathy Neurological: Alert, oriented. non focal. Psychiatric: Normal mood and affect. IVs and Medications Medications Reviewed: Medications were reviewed in detail Lab and Diagnostics Result Diagram: 10/16/16 0310 10/16/16 0310 X-Rays, CTs and MRIs Chest Xray Interpretation: IMPRESSION: No acute intrathoracic pathology. Dictated by: Marco Antonio Givens M.D. on 10/15/2016 at 19:07 View: Portable, 1 view Interpretation / Wet Read by: Interpret - Radiologist CT Head Interpretation IMPRESSION: No CT evidence of acute intracranial pathology. Dictated by: Marco Antonio Givens M.D. on 10/15/2016 at 19:21 Study: Head CT no contrast Interpretation / Wet Read by: Interpret - Radiologist 12-lead ECG ECG Interpretation: Prolonged UT interval. LBBB which is new. QRS 118 previously, 117 by EMS. Now 126. Inverted T wave in lead 3 which is new compared to January 2013. Time: 18:30 Interpreted by: ED physician Normal ECG Interpretation: Normal rate (82), Normal sinus rhythm ECG Interpretation: Sinus tachycardia. PVCs. Intraventricular conduction delay. Rate 95. Time: 19:53 Interpreted by: ED physician Cardiac Echo Impressions Echocardiogram Report Interpretation Summary 1) Mildly enlarged left ventricle with mildly to moderate reduced systolic function (EF about 40%). 2) Basal inferior wall and basal to mid inferolateral wall are akinetic. 3) Normal right ventricular size and function. 4) Moderate aortic stenosis present (valve area 1.1cm2, mean gradient 14.6mmHg, severity ratio 0.30). 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 6) Compared to the Echo done 03/26/2016, aortic stenosis has progressed from mild to moderate range and LV is dilated on today's study. Reading Physician:10 :29 AM Assessment & Plan Pt is an 80 year old male with a hx of HTN, hyperlipidemia and DM, tobacco dependence, and a recent abnormal stress test presents to ED via EMS following a syncopal episode for a few minutes just prior to arrival while at rest with subsequent EKG and further episodes of VT. Syncope, resolved -likely secondary to ventricular tachycardia -treat as below Ventricular tachycardia present on admission. Stable. - EKG and telemetry tracings reviewed with runs of VT - Echocardiogram performed and showed worsening aortic stenosis and a dilated left ventricle - Repeated CK/MB, troponin both negative - Amiodarone bolus/drip started, to be continued per cardiology - Telemetry - NPO under cardiac catheterization with coronary angiogram - Hold metformin, lisinopril, atenolol to be switched to metoprolol - Patient seen by Dr. Sheriff this evening, Dr. Maldonado to see patient in morning - Appreciate cardiology consult time and expertise - Discussed with Dr. Sheriff, metoprolol added in addition to amiodarone. Will continue loading dose of amiodarone by IV for total of 24 hours. Review tomorrow morning and switch to PO amiodarone 400 mg BID for 1 week then 200 mg BID. If additional control is needed, add lidocaine. - Repeat EKG in the morning to check QT interval. - Electrophysiology consulted. ICD placement for secondary prevention scheduled for Tuesday. Chronic conditions: CAD - switched to atorvastatin - switched to metoprolol Systolic congestive heart failure - echocardiogram showed EF 40% - continue statin, aspirin, and beta lenny. Resume BENITA inhibitor in 1-2 days after cardiac cath. Peripheral artery disease - Right superficial femoral artery lesion visualized during cardiac cath - Will need an ankle brachial index CKD stage III - BUN/Cr currently at baseline - Hold lisinopril - IV fluids after cardiac catheterization Diabetes mellitus, most recent A1c at 7.0 in Sep, 2016 - metformin held - once pt has a diet after procedure, add insulin Hyperlipidemia - switched to atorvastatin Hypertension - continue home amlodipine and chlorthalidone EVON - pt's will bring CPAP today Acetaminophen-fever/headache/mild/moderate pain Antiemetics, as needed Bowel regimen, as needed. GI Prophylaxis: Not indicated VTE Prophylaxis: Sub-Q Heparin (Unfractionated) Resuscitation Status: CPR: Attempt Resuscitation Attending Statement Patient seen and examined with house staff. Agree with all attached documentation. My Wick DO October 16, 2016 07:43 Patrick Pretty MD October 17, 2016 07:40
--- NOTE | 2016-10-16 10:29 | DRSVH ---
[facility] [address] [place] [address] Echocardiogram Report Name: GEETA REED Date: 10/16/2016 Height: 68 in Hospital [facility] Weight: 214 lb Gender: Male BSA: 2.1 m2 : 1935 Age: 80 yrs Reason For Study: Syncope, V-tach Ordering Physician: [facility] Performed By: Siddhartha Barnes Referring Physician: MICK LNUA Interpretation Summary 1) Mildly enlarged left ventricle with mildly to moderate reduced systolic function (EF about 40%). 2) Basal inferior wall and basal to mid inferolateral wall are akinetic. 3) Normal right ventricular size and function. 4) Moderate aortic stenosis present (valve area 1.1cm2, mean gradient 14.6mmHg, severity ratio 0.30). 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 6) Compared to the Echo done 03/26/2016, aortic stenosis has progressed from mild to moderate range and LV is dilated on today's study. Procedure: A two-dimensional transthoracic echocardiogram with color flow and Doppler was performed. The study quality was technically adequate. Comparison is made with the echocardiogram of 03/26/16. The patient was in normal sinus rhythm during the exam. Left Ventricle: The left ventricle is mildly dilated. There is normal left ventricular wall thickness. Proximal septal thickening is noted. Left ventricular systolic function is mild to moderately reduced. Left ventricular ejection fraction is estimated to be 40 +/- 5%. Basal inferior wall and basal to mid inferolateral wall are akinetic. Assessment of diastolic parameters suggests a pseudonormalization pattern, consistent with elevated filling pressures. Right Ventricle: The right ventricle is normal in size, thickness and function. Atria: The left atrium is moderately dilated. Right atrial size is normal. The interatrial septum is intact with no evidence for an atrial septal defect. Mitral Valve: The mitral valve leaflets are slightly calcified. PMVL appears fixed. There is mild mitral stenosis. There is moderate mitral regurgitation. Aortic Valve: The aortic valve is moderately calcified. The peak aortic velocity is 2.4 m/sec. The aortic valve mean gradient is 15 mmHg. The calculated aortic valve area is 1.1 cm2. There is moderate aortic stenosis. There is mild aortic regurgitation. Tricuspid Valve: The tricuspid valve is not well visualized, but is grossly normal. Pulmonary artery pressures cannot be estimated because of the lack of a measurable TR jet velocity. Pulmonic Valve: The pulmonic valve is not well seen, but is grossly normal. There is mild pulmonic regurgitation. Great Vessels: The aortic root is normal size. The dimensions of the ascending aorta are normal. The pulmonary artery is normal size. The IVC is dilated (diameter is greater than 2.1 cm) yet it collapses greater than 50% with a sniff. This suggests a right atrial pressure of 8 mm Hg. Pericardium/ Pleura There is no pericardial effusion. There is no pleural effusion. MMode/2D Measurements & Calculations LVIDd: 5.9 cm RA long axis LVOT diam LVIDs: 5.2 cm LA A2 area: 23.2 cm FS: 10.8 % LA A4 area: 23.5 cm RA area Ao root diam EPSS: 0.96 cm LA length (vol): 5.2 cm IVSd: 1.00 cm LA vol: 88.9 ml : 19.6 cm asc Aorta LVPWd: 0.65 cm LA vol index RA vol: 59.6 mlDiam: 3.0 cm RA : 28.4 mm2 IVC diam: 2.3 cm LV portillo. diameter/BSA LV sys. diameter/BSA TAPSE: 2.9 cm (cm/m^2): 2.8 (cm/m^2): 2.5 Doppler Measurements & Calculations Ao V2 max MV E max carlitos MV E/A: 1.4 PA V2 max : 240.4 cm/sec : 163.6 cm/sec Med Peak E' Carlitos : 80.8 cm/sec Ao max PG MV A max carlitos PA mean PG : 23.1 mmHg : 118.8 cm/sec E/E' med: 55.5 : 1.7 mmHg Ao mean PG Lat Peak E' Carlitos : 14.6 mmHg MVA(VTI): 1.5 cm LVOT Max Carlitos MR ERO: 0.27 cm2 E/E' lat: 28.3 : 59.1 cm/sec E/e' average JUAN(I,D): 1.1 cm sev ratio MV V2 mean Ao V2 mean LV V1 max PG MR flow rate : 106.2 cm/sec : 185.3 cm/sec : 149.7 cm3/sec MV mean PG Ao V2 VTI: 62.2 cm LV V1 VTI MR PISA radius JUAN(V,D): 0.93 cm2 : 18.8 cm MV V2 VTI MV dec time : 0.17 sec PA V2 mean JUAN indexed to BSA : 63.4 cm/sec (cm^2/m^2): 0.54 PA pr(Accel) : 38.5 mmHg Reading Physician:10:29 AM
[2016-10-16] MEDS ORDERED: Nitroglycerin 50,000 mcg/250 mL D5W Premix IV ONE (11:58)
[2016-10-16] MEDS ORDERED: Heparin 5,000 Units/500 mL NS Premix IV ONE (11:58)
[2016-10-16] MEDS ORDERED: Heparin 1,000 Units/500 mL NS Premix IV ONE (11:58)
[2016-10-16] MEDS ORDERED: 0.9% Sodium Chloride 1,000 ML ONE (11:58)
[2016-10-16] MEDS ORDERED: Heparin 10,000 Unit/1,000 mL NS Premix IV ONE (11:58)
[2016-10-16] MEDS ORDERED: Heparin 1,000 Unit/mL 10 mL Inj ONE (11:58)
[2016-10-16] MEDS ORDERED: fentaNYL-PF 50 mCg/mL 2 mL Inj ONE (12:40)
[2016-10-16] MEDS ORDERED: Atropine 1 mg/10 mL (Code) Syringe ONE (13:38)
--- NOTE | 2016-10-16 16:03 | CS94 ---
[address] [address] DIAGNOSTIC CARDIAC CATHETERIZATION PATIENT: GEETA REED : 1935 MR#: [id number] ADMIT: 10/15/2016 JOB ID: [id number] PROCEDURE NOTE -- CARDIAC CATHETERIZATION LABORATORY: SERVICE DATE: Sunday, October 16, 2016 SIGNAL PROCESSING ENGINEER: Allan Sheriff MD PROCEDURES: 1. Coronary angiogram -- urgent. 2. Left heart catheterization (LHC) -- pressure measurement. CLINICAL DETAILS: This 80-year-old man with no prior history of heart disease -- but underlying hypertension, hyperlipidemia and diabetes with chronic kidney disease and baseline creatinine 1.6 -- was admitted yesterday after syncope at rest. He was found to have sustained self terminating runs of monomorphic ventricular tachycardia at nearly 200 bpm that were controlled with intravenous amiodarone loading protocol. He had in fact recently been undergoing cardiac workup by his primary physician because of the recent onset of exertional dyspnea and exertional chest pressure which was a less prominent symptom. Electrocardiogram shows nonspecific IVCD with Q-wave only in lead 3. Echocardiogram shows mild to moderate left ventricular dysfunction with ejection fraction 40% to 45%; as well as inferolateral akinesis and an apparent scarring; and also mild to moderate aortic stenosis with mean AVG about 14. Myocardial perfusion scan showed a moderate size fixed inferolateral defect as well as a moderate sized inferolateral region of reperfusion consistent with ischemia. PROCEDURAL DETAILS: I discussed with him and his family regarding the findings, impressions and management considerations including the recommendation to proceed with urgent coronary angiography and to guide for definitive diagnosis and to guide treatment decisions including medical therapy, percutaneous coronary intervention or coronary bypass surgery if needed. We discussed the procedure including possible risks and complications. We discussed after questions and discussion, he signed informed consent to proceed. He was brought to the catheterization laboratory NPO where he was prepped sterilely and draped for the procedure after having pre-procedure hydration for his moderate to severe chronic kidney disease. CORONARY ANGIOGRAM: Arterial access was obtained without difficulty in the right common femoral artery using fluoroscopic localization over the femoral head and modified Seldinger technique to insert a long 25 cm 6-[place]ine[place] side-arm sheath. Initially, a Pictrition App wire was required to navigate the aortoilio circulation; and catheters were advanced and exchanged over exchange length 0.035 inch J-tipped guidewire. The left coronary artery was engaged with a 6-[place] JL-4 catheter. Then, the right coronary artery was engaged with a 6-[place] JR-4 catheter. LHC: The catheter entered the left ventricle; and pressure measurements were made; but no LV angiogram was done. Procedure without difficulty. Patient tolerated procedure well. No complications. Only 80 cc of contrast were used. A side-arm sheath angiogram shows peripheral vascular disease with a severe lesion in the right SFA at the bifurcation with profunda. Access is low near the bifurcation or in the profunda. Arterial hemostasis was obtained without difficulty using manual pressure. The patient was transferred from the catheterization laboratory, asymptomatic and stable back to the CCU for ongoing care including by the primary hospitalist team. I discussed the procedure findings and management considerations with the patient as well as his multiple family members; and with the hospitalist team; and with Cardiology including with Electrophysiology. FINDINGS: 1. LMCA: Intact. The left main coronary artery is a large vessel with modest distal atherosclerotic narrowing 30% to 40%. There is no obstructive coronary disease. 2. LAD: Intact without significant atherosclerotic lesions. The left anterior descending coronary artery is a large transapical vessel. There is mild to moderate diffuse atherosclerotic plaquing. The LAD distribution includes a large diagonal with proximal tortuosity and atherosclerotic plaquing but no angiographically significant lesions. 3. LCX: Note occluded mid LCX. The left circumflex coronary artery is occluded after the first obtuse marginal which is a moderate to large size vessel (2-2.5 mm). There are collaterals that appear to be primarily from the diagonal that are not robust; but faintly opacified distal LCX branches including another OM vessel. 4. RCA: Dominant. Note severe ostial disease (no pressure damping however). The right coronary artery is occluded proximally after the takeoff of conus branch. There are [id number] collaterals primarily from septal agricultural equipment operator branches that opacify the distal RCA including a long RV branch. Additionally there is a faint [id number] collateral from the conus that probably faintly feeds the circumflex distribution. 5. LHC: LVED 27 (pre A 22); and no significant systolic gradient on pullback across the aortic valve. CONCLUSIONS: 1. Coronary artery disease (CAD): Two-vessel CAD -- including occluded mid circumflex with left to right collaterals and right to left collaterals; as well as intact LAD (left anterior descending) distribution; and occluded proximal RCA with [id number] collaterals to the distal RCA (right coronary artery) into an RV (right ventricle) branch. 2. Elevated LVEP. RECOMMENDATIONS: COMMENT: In the clinical context of his recent angina and exertional dyspnea with mild to moderate LV dysfunction and ischemia/scar in the inferolateral distribution, the coronary anatomy is consistent. There are no easily revascularizable lesions; and both SIGNAL INSPECTOR revascularization or coronary bypass surgery do not seem to offer benefit. Medical therapy is likely the best option including amiodarone for his frequent recurrent ventricular tachycardia. (ICD for secondary prevention. It is discussed with Electrophysiology and seems indicated).
[2016-10-16] MEDS ORDERED: 0.9% Sodium Chloride 250 ML BOLUS IV PRN (16:40)
[2016-10-16] MEDS ORDERED: Sodium Chloride LOK Flush 10 mL Syringe IVFLUSH PRN (16:40)
[2016-10-16] MEDS ORDERED: 0.9% Sodium Chloride 400 ML (4 HRS) IV ONE (16:40)
[2016-10-16] MEDS ORDERED: Atropine 1 mg/10 mL (Code) Syringe IVPUSH PRN (16:40)
[2016-10-16] MEDS ORDERED: Ondansetron 2 mg/mL 2 mL Inj IVPUSH PRN (16:40)
[2016-10-17] VITALS (7 sets, daily range): BP systolic 144–162; BP diastolic 58–103; PULSE 69–77; RESP 14–27; O2SAT 93–97
[2016-10-17 03:09] LABS: Mean Corpuscular Hemoglobin 30.4 pg (27.0-35.0); Mean Corpuscular Volume 89.8 fL (81-100)
[2016-10-17] MEDS: Heparin 5,000 Unit/mL Inj SUBQ SCH ×2 (07:28→16:49)
[2016-10-17] MEDS: Sodium Chloride LOK Flush 10 mL Syringe IVFLUSH SCH ×2 (07:28→16:49)
[2016-10-17] MEDS ORDERED: Furosemide 10 mg/mL 4 mL Inj IVPUSH ONE (11:10)
--- NOTE | 2016-10-17 11:10 | PCM.PNMED ---
Subjective Date of Service October 17, 2016 Subjective He is doing well. He slept well. He is required oxygen which is not the case at home. He does have mild chronic systolic heart failure. No pedal edema. No chest pain, palpitations or arrhythmia. No abdominal pain, nausea, no diarrhea. No overnight events Exam Vital Signs Vital Sign - Last Date Time Temp Pulse Resp B/P Pulse Ox O2 Delivery O2 Flow Rate FiO2 10/17/16 08:30 Supplement Oxygen 10/17/16 08:01 37.1 69 22 151/65 93 6.00 Intake and Output 10/16/16 10/16/16 10/17/16 Cumulative From/Thru 15:00 23:00 07:00 10/15/16 18:30 - 10/17/16 06:23 Intake Total 1420 ml 718 ml 3949 ml Output Total 1000 ml 1275 ml 3425 ml Balance 420 ml -557 ml 524 ml Intake Oral 420 ml 420 ml IV Total 1000 ml 718 ml 3529 ml Output Urine Total 1000 ml 1275 ml 3425 ml # Voids 3 3 Exam Alert and oriented -3, no distress. Fluent speech Anicteric sclera. Lungs are clear with normal rate and effort Heart is regular without murmur gallop or rub Abdomen soft nontender, flat Extremities are free of edema. Skin is free of rash or lesions. IVs and Medications Medications Reviewed: Medications were reviewed in detail Lab and Diagnostics Result Diagram: 10/17/16 0255 10/17/16 025 X-Rays, CTs and MRIs Chest Xray Interpretation: IMPRESSION: No acute intrathoracic pathology. Dictated by: Marco Antonio Givens M.D. on 10/15/2016 at 19:07 View: Portable, 1 view Interpretation / Wet Read by: Interpret - Radiologist CT Head Interpretation IMPRESSION: No CT evidence of acute intracranial pathology. Dictated by: Marco Antonio Givens M.D. on 10/15/2016 at 19:21 Study: Head CT no contrast Interpretation / Wet Read by: Interpret - Radiologist 12-lead ECG ECG Interpretation: Prolonged ID interval. LBBB which is new. QRS 118 previously, 117 by EMS. Now 126. Inverted T wave in lead 3 which is new compared to January 2013. Time: 18:30 Interpreted by: ED physician Normal ECG Interpretation: Normal rate (82), Normal sinus rhythm ECG Interpretation: Sinus tachycardia. PVCs. Intraventricular conduction delay. Rate 95. Time: 19:53 Interpreted by: ED physician Cardiac Echo Impressions Echocardiogram Report Interpretation Summary 1) Mildly enlarged left ventricle with mildly to moderate reduced systolic function (EF about 40%). 2) Basal inferior wall and basal to mid inferolateral wall are akinetic. 3) Normal right ventricular size and function. 4) Moderate aortic stenosis present (valve area 1.1cm2, mean gradient 14.6mmHg, severity ratio 0.30). 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 6) Compared to the Echo done 03/26/2016, aortic stenosis has progressed from mild to moderate range and LV is dilated on today's study. Reading Physician:10 :29 AM Assessment & Plan Pt is an 80 year old male with a hx of HTN, hyperlipidemia and DM, tobacco dependence, and a recent abnormal stress test presents to ED via EMS following a syncopal episode for a few minutes just prior to arrival while at rest with subsequent EKG and further episodes of VT. Syncope, resolved -likely secondary to ventricular tachycardia -treat as below Ventricular tachycardia present on admission. Stable. No recurrent arrhythmia. He is now off from amiodarone drip and on 4 mg by mouth twice a day. - EKG and telemetry tracings reviewed with runs of VT - Echocardiogram performed and showed worsening aortic stenosis and a dilated left ventricle - Repeated CK/MB, troponin both negative - Amiodarone bolus/drip started, to be continued per cardiology - Telemetry - NPO under cardiac catheterization with coronary angiogram - Hold metformin, lisinopril, atenolol to be switched to metoprolol - Patient seen by Dr. Sheriff this evening, Dr. Maldonado to see patient in morning - Appreciate cardiology consult time and expertise - Discussed with Dr. Sheriff, metoprolol added in addition to amiodarone. Will continue loading dose of amiodarone by IV for total of 24 hours. Review tomorrow morning and switch to PO amiodarone 400 mg BID for 1 week then 200 mg BID. If additional control is needed, add lidocaine. - Repeat EKG in the morning to check QT interval. - Electrophysiology consulted. ICD placement for secondary prevention scheduled for Tuesday. Chronic conditions: CAD, POA. Stable. Coronary catheterization revealed two-vessel disease with collateralization but no critical stenoses. - switched to atorvastatin - switched to metoprolol, continue medical management. Acute on chronic Systolic congestive heart failure, new. - echocardiogram showed EF 40% - continue statin, aspirin, and beta lenny. Resume BENITA inhibitor in 1-2 days after cardiac cath. We will resume BENITA inhibitor One day and begin diuresis with IV furosemide today. Peripheral artery disease, POA. Stable - Right superficial femoral artery lesion visualized during cardiac cath - Will need an ankle brachial index CKD stage III, POA. Stable - BUN/Cr currently at baseline - Hold lisinopril - IV fluids after cardiac catheterization Diabetes mellitus, POA and stable. Most recent A1c at 7.0 in Sep, 2016 - metformin held - once pt has a diet after procedure, add insulin Hyperlipidemia , POA and stable. - switched to atorvastatin Hypertension , POA and relatively stable. He has been slightly hypertensive overnight. We will target a systolic less than 140. Will continue current medications and follow after diuresis. - continue home amlodipine and chlorthalidone EVON, POA and stable. - pt's will bring CPAP today Acetaminophen-fever/headache/mild/moderate pain Antiemetics, as needed Bowel regimen, as needed. GI Prophylaxis: Not indicated VTE Prophylaxis: Sub-Q Heparin (Unfractionated) Resuscitation Status: CPR: Attempt Resuscitation Patrick Pretty MD October 17, 2016 11:10
[2016-10-18] VITALS (10 sets, daily range): BP systolic 140–160; BP diastolic 48–74; PULSE 63–79; RESP 18–24; O2SAT 95–99
[2016-10-18] MEDS: Heparin 5,000 Unit/mL Inj SUBQ SCH ×4 (00:45→23:27)
[2016-10-18] MEDS: Sodium Chloride LOK Flush 10 mL Syringe IVFLUSH SCH ×4 (00:45→23:27)
--- NOTE | 2016-10-18 01:22 | PROG NOTE ---
[address] [address] PROGRESS NOTE PATIENT: GEETA REED : 1935 MR#: [id number] ADMIT: 10/15/2016 JOB ID: [id number] CARDIOLOGY CONSULTATION PROGRESS NOTE -- FOLLOW UP INPATIENT VISIT: DATE: 10/17/2016 CONSULTING PHYSICIAN: Cardiology -- Allan Sheriff MD PROBLEMS: 1. Ventricular tachycardia. a. Presenting with syncope. b. Frequent, recurrent, self-terminating ventricular tachycardia, now controlled on amiodarone. c. Monomorphic ventricular tachycardia. 2. Coronary artery disease: a. Two-vessel CAD with chronically occluded circumflex and RCA. b. Ischemic cardiomyopathy, with ejection fraction 40%, including inferior and inferolateral akinesis. HOSPITAL COURSE AND INTERIM PROGRESS: Hospital day three. I saw this 80-year-old man in the CCU unit along with his today, Sunday, October 16, 2016, on Cardiology rounds. I reviewed his hospital course: He has overall been stable and done well. His difficult early course with presenting syncope and recurrent symptomatic self-terminating runs of ventricular tachycardia at 214 BPM have now been well controlled on a loading regimen of intravenous amiodarone (1 g over 24 hours). Yesterday, we accomplished a coronary angiogram which showed chronic two-vessel coronary disease with occluded LCX and occluded RCA, but intact LAD. There is no current target for revascularization by PCI or CAD. I discussed him with the electrophysiology service; and we plan to switch to oral amiodarone, then AICD on Tuesday. He has COPD, and also some hypoxia with oxygen requirement, though he is not symptomatic with dyspnea. The chest x-ray is consistent both with COPD and possibly with mild heart failure. Post catheterization, he has had hydration and good urine output. No problem at the groin access site. OBJECTIVE FINDINGS/EXAMINATION: Vital signs stable. Heart and lungs: Unremarkable. Extremities: Intact RFA access site with mild ecchymosis but no hematoma, bruit, pulsatile mass, and peripheral perfusion is intact but with poor right pedal pulses which may reflect his severe SFA lesion that was noted at catheterization. LABORATORY: Note creatinine has decreased further to 1.25 with hydration. Note BNP on admission was only mildly elevated at 568.8. ASSESSMENT: I discussed the findings, impressions, and management considerations with him as well as with his ; and with the hospitalist team including: Ventricular tachycardia with presenting syncope and recurrent rapid VT controlled on amiodarone in the setting of coronary disease: The overall impression is primarily chronic coronary disease without a current acute event (note serial troponin and CK not elevated). The ventricular tachycardia is monomorphic and may be due to scar substrate noting recent perfusion scan that showed a substantial fixed inferior defect, and also some inferior ischemia with mild LV dysfunction consistent with ischemic cardiomyopathy. I discussed all this at length with the patient and his as well as with his daughter (a stenographer) yesterday. They understand the life-threatening risk of the ventricular tachycardia and plan to treat with amiodarone and with backup ICD protection. RECOMMENDATIONS: 1. Electrophysiology consultation and anticipated ICD, October 19. 2. Please keep n.p.o. for October 19. 3. Switch amiodarone to oral regimen, planning 400 mg p.o. b.i.d. beginning today, October 17, for one week, then decrease. 4. After contrast clears in another 24 hours, consider reinstituting BENITA inhibitors; and low threshold for a trial of diuretic given his oxygen requirement and apparent visible dyspnea, even though he is not symptomatic of dyspnea. 5. Limited activity at present until ICD in place.
[2016-10-18 07:34] LABS: Mean Corpuscular Hemoglobin 30.5 pg (27.0-35.0); Mean Corpuscular Volume 89.8 fL (81-100)
[2016-10-18] MEDS ORDERED: Glucose 40% Oral Gel 15 Gm Tube PO PRN (13:05)
[2016-10-18] MEDS ORDERED: Albuterol 2.5 mg/3 mL Inhalation Solution NEB PRN (16:10)
--- NOTE | 2016-10-18 16:18 | PCM.PNMED ---
Subjective Date of Service October 18, 2016 Subjective Pt is an 80 year old male with a hx of HTN, hyperlipidemia and DM, tobacco dependence, and a recent abnormal stress test presents to ED via EMS following a syncopal episode for a few minutes just prior to arrival while at rest. Patient reported of having exertional dyspnea for the past month. He reports that he feels well this morning. He does not have chest pain, dyspnea , or leg swelling. He has not had a bowel movement yet but has not been eating regularly. He does not have right leg pain. He reports that he usually smokes a cigar daily but has decided to quit. He has never been diagnosed with COPD and has not used inhalers. Exam Vital Signs Vital Sign - Last Date Time Temp Pulse Resp B/P Pulse Ox O2 Delivery O2 Flow Rate FiO2 10/18/16 03:59 37.0 69 18 149/48 96 Nasal Cannula 6.00 Intake and Output 10/17/16 10/17/16 10/18/16 Cumulative From/Thru 15:00 23:00 07:00 10/15/16 18:30 - 10/18/16 06:02 Intake Total 1100 ml 200 ml 5249 ml Output Total 1500 ml 875 ml 5800 ml Balance -400 ml -675 ml -551 ml Intake Oral 1100 ml 200 ml 1720 ml IV Total 3529 ml Output Urine Total 1500 ml 875 ml 5800 ml # Voids 3 # Bowel Movements 0 0 Exam General: No acute distress, well-developed, well-nourished, appropriately interactive and cooperative HEENT: Normocephalic, abrasion noted on left forehead. Anicteric sclerae, moist conjunctivae. Moist mucous membranes. Neck: Supple with full range of motion. No JVD. Cardiovascular: Regular rate and rhythm, systolic ejection murmur grade II/ with no rubs or gallops appreciated. Pulses equal upper extremity. Decreased right dorsalis pedis pulse. Pulmonary: End expiratory wheezes heard at left lower lung montiel. Normal respiratory effort with no use of accessory muscles. GI: Bowel tones present. Soft, nontender, nondistended. Extremities: No clubbing, cyanosis, edema Skin: Normal temperature, turgor, and texture; no rash, ulcers MSK: no edema or erythema of joints, normal ROM Neurological: Alert, oriented. non focal. Psychiatric: Normal mood and affect. IVs and Medications Medications Reviewed: Medications were reviewed in detail Lab and Diagnostics Result Diagram: 10/18/16 0410 10/18/16 0410 X-Rays, CTs and MRIs Chest Xray Interpretation: IMPRESSION: No acute intrathoracic pathology. Dictated by: Marco Antonio Givesn M.D. on 10/15/2016 at 19:07 View: Portable, 1 view Interpretation / Wet Read by: Interpret - Radiologist CT Head Interpretation IMPRESSION: No CT evidence of acute intracranial pathology. Dictated by: Marco Antonio Givens M.D. on 10/15/2016 at 19:21 Study: Head CT no contrast Interpretation / Wet Read by: Interpret - Radiologist 12-lead ECG ECG Interpretation: Prolonged ND interval. LBBB which is new. QRS 118 previously, 117 by EMS. Now 126. Inverted T wave in lead 3 which is new compared to January 2013. Time: 18:30 Interpreted by: ED physician Normal ECG Interpretation: Normal rate (82), Normal sinus rhythm ECG Interpretation: Sinus tachycardia. PVCs. Intraventricular conduction delay. Rate 95. Time: 19:53 Interpreted by: ED physician Cardiac Echo Impressions Echocardiogram Report Interpretation Summary 1) Mildly enlarged left ventricle with mildly to moderate reduced systolic function (EF about 40%). 2) Basal inferior wall and basal to mid inferolateral wall are akinetic. 3) Normal right ventricular size and function. 4) Moderate aortic stenosis present (valve area 1.1cm2, mean gradient 14.6mmHg, severity ratio 0.30). 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 6) Compared to the Echo done 03/26/2016, aortic stenosis has progressed from mild to moderate range and LV is dilated on today's study. Reading Physician:10 :29 AM Assessment & Plan Pt is an 80 year old male with a hx of HTN, hyperlipidemia and DM, tobacco dependence, and a recent abnormal stress test presents to ED via EMS following a syncopal episode for a few minutes just prior to arrival while at rest with subsequent EKG and further episodes of VT. Syncope, resolved -likely secondary to ventricular tachycardia -treat as below Ventricular tachycardia present on admission. Stable. No recurrent arrhythmia. He is now off from amiodarone drip and on 400 mg by mouth twice a day for 1 week. - EKG and telemetry tracings reviewed with runs of VT - Echocardiogram performed and showed worsening aortic stenosis and a dilated left ventricle - Repeated CK/MB, troponin both negative - Telemetry - Patient followed by Dr. Sheriff, and he discussed case with Dr. Wu, ICD placement for secondary prevention scheduled for Tuesday. - Appreciate cardiology consult time and expertise - Discussed with Dr. Sheriff, and if oral amiodarone does not provide enough control then will switch back to IV amiodarone. If amiodarone does not control, then add lidocaine. - Repeat EKG in the morning to check QT interval. Acute hypoxic respiratory failure, active. - Pt does not use oxygen at home. He has been saturating 98% on on 6L by nasal cannula - Pt does not report a history of COPD but was smoking a cigar/day up until he was admitted. He also has systolic congestive heart failure and obstructive sleep apnea and does not regularly wear his CPAP. - He was given a dose of Lasix yesterday without significant improvement. He has wheezing on exam but no lower extremity edema. His has a net output of -551 ml - Albuterol nebulizers as needed - Repeat chest x-ray in the morning Chronic conditions: Coronary artery disease, present on admission. Stable. Coronary catheterization revealed two-vessel disease with collateralization but no critical stenoses. - switched to atorvastatin - switched to metoprolol, continue medical management. Acute on chronic Systolic congestive heart failure, new. - echocardiogram showed EF 40% - continue statin, aspirin, and beta lenny. Resume BENITA inhibitor in 1-2 days after cardiac catheterization. - IV furosemide yesterday - Resume BENITA inhibitor likely tomorrow. Peripheral artery disease, POA. Stable - Right superficial femoral artery lesion visualized during cardiac catheterization - Will need an ankle brachial index and further work up at outpatient CKD stage III, POA. Stable - BUN/Cr currently at baseline - Hold lisinopril - IV fluids after cardiac catheterization Diabetes mellitus, POA and stable. Most recent A1c at 7.0 in Sep, 2016 - metformin held - on low dose correctional scale Lispro Hyperlipidemia , POA and stable. - switched to atorvastatin Hypertension , POA and relatively stable. He has been slightly hypertensive overnight. We will target a systolic less than 140. Will continue current medications and follow after diuresis. - continue home amlodipine, chlorthalidone, and metoprolol Obstructive sleep apnea, POA and stable. - Pt refused CPAP last night Acetaminophen-fever/headache/mild/moderate pain Antiemetics, as needed Bowel regimen, as needed. Pain Evaluation: Adequate Pain Control GI Prophylaxis: Not indicated VTE Prophylaxis: Sub-Q Heparin (Unfractionated) Resuscitation Status: CPR: Attempt Resuscitation Attending Statement The patient was seen and examined together with Dr. Wick on 10/18/2016 and I agree with the history, exam and plan as outlined in the note above. . My Wick DO October 18, 2016 08:10 Randolph Aguilar MD Oct 21, 2016 19:22
[2016-10-18] MEDS: Insulin LISPRO 300 Unit/3 mL Inj SUBQ SCH ×2 (17:30→23:27)
[2016-10-19] VITALS (22 sets, daily range): BP systolic 125–184; BP diastolic 56–76; PULSE 62–75; RESP 16–20; O2SAT 91–98
[2016-10-19 03:55] LABS: BASOPHILS % (AUTO) 0.3 % (0-3); EOSINOPHILS % (AUTO) 2.6 % (0-5); MONOCYTES % (AUTO) 12.1 % (4-12); Mean Corpuscular Hemoglobin 30.4 pg (27.0-35.0); Platelet Count 237 bil/L (150-400)
[2016-10-19] MEDS: Insulin LISPRO 300 Unit/3 mL Inj SUBQ SCH ×4 (07:55→22:00)
[2016-10-19] MEDS: Heparin 5,000 Unit/mL Inj SUBQ SCH ×2 (07:55→16:57)
[2016-10-19] MEDS: Sodium Chloride LOK Flush 10 mL Syringe IVFLUSH SCH ×5 (07:57→23:20)
--- NOTE | 2016-10-19 08:52 | DRSVH ---
PROCEDURE: X-RAY CHEST ONE VIEW, PORTABLE ([id number]) INDICATIONS: ?pulmonary edema TECHNIQUE: One view of the chest was acquired. COMPARISON: [facility], CR, XR CHEST 1VW (PORTABLE), 10/15/2016, 18:22. FINDINGS: Surgical changes and devices: None. Lungs and pleura: No pleural effusions or pneumothorax. Bibasilar patchy airspace opacities are pre sent otherwise lungs are clear. Mediastinum: Mediastinal contours appear normal. Heart size is normal. Bones and chest wall: No suspicious bony lesions. Overlying soft tissues appear unremarkable. IMPRESSION: Bibasilar atelectasis versus aspiration or pneumonia. Correlate clinically. Dictated by: Edson Bustillos RRA Interpreted: Jules Oh MD on 10/19/2016 at 8:50 Transcribed by: GLORIA on 10/19/2016 at 8:51 Approved by: Jules Oh M.D. on 10/19/2016 at 10:28
[2016-10-19] MEDS ORDERED: Heparin 10,000 Unit/1,000 mL NS Premix IV ONE (08:57)
[2016-10-19] MEDS ORDERED: Bupivacaine-MPF 0.5% 30 mL Inj ONE (08:57)
[2016-10-19] MEDS ORDERED: Vancomycin 1,000 mg Inj ONE (08:57)
[2016-10-19] MEDS ORDERED: Water for Injection 50 ML IV ONE (08:57)
[2016-10-19] MEDS ORDERED: 0.9% Sodium Chloride 250 ML ONE (08:58)
[2016-10-19] MEDS ORDERED: 0.9% Sodium Chloride 1,000 ML ONE (09:29)
[2016-10-19] MEDS ORDERED: Vancomycin 1,000mg/200 mL NS IV ONE (09:33)
[2016-10-19] MEDS ORDERED: fentaNYL-PF 50 mCg/mL 2 mL Inj ONE (09:34)
[2016-10-19] MEDS ORDERED: 0.9% Sodium Chloride 1,000 ML IV PRN (09:38)
[2016-10-19] MEDS ORDERED: Vancomycin Inj 1,000 MG in IV Premix 1 EACH IV ONE ×2 (09:40→22:45)
[2016-10-19] MEDS ORDERED: Methohexital 10 mg/mL 50 mL Inj ONE (10:16)
--- NOTE | 2016-10-19 11:12 | DRSVH ---
PROCEDURE: X-RAY CHEST ONE VIEW, PORTABLE ([id number]) INDICATIONS: For new leads placed TECHNIQUE: One view of the chest was acquired. COMPARISON: [facility], CR, XR CHEST 1VW (PORTABLE), 10/19/2016, 5:56. FINDINGS: Surgical changes and devices: Interval placement of left chest AICD. Lungs and pleura: No pleural effusions or pneumothorax. Presumed atelectasis involving the lung bas es has resolved and lungs are clear. Mediastinum: Mediastinal contours appear normal. Heart size is normal. Bones and chest wall: No suspicious bony lesions. Overlying soft tissues appear unremarkable. IMPRESSION: No immediate complications status post cardiac pacemaker placement. Dictated by: Edson Bustillos RR Interpreted: Carolyn Mcclellan MD on 10/19/2016 at 11:11 Transcribed by: MANI on 10/19/2016 at 11:12 Approved by: Carolyn Mcclellan MD, PhD on 10/19/2016 at 11:17
--- NOTE | 2016-10-19 11:30 | CONS ---
[address] [address] CONSULTATION REPORT PATIENT: GEETA REED : 1935 MR#: [id number] ADMIT: 10/15/2016 JOB ID: [id number] DATE OF SERVICE: 10/19/2016 IDENTIFICATION/HISTORY: The patient is a pleasant 80-year-old man without prior cardiac history who presented with syncope and was found to be in monomorphic ventricular tachycardia. He did not require shock as he self terminated ultimately after a prolonged period of time. He underwent coronary angiography earlier this weekend and was found to have occlusions of his left circumflex as well as his RCA with extensive collateralization. His ejection fraction was 40%-45%. No intervenable lesions were identified and no troponin elevation was noted. This was not an acute coronary syndrome. I am being asked to comment on his syncope with sustained ventricular tachycardia. He feels well now. He was diuresed over the weekend. He denies any chest pain, pressure, discomfort. He has episodic shortness of breath that resolves within a few seconds. He has intact conduction otherwise and is in normal sinus rhythm. IMPRESSION/RECOMMENDATION: The patient is a pleasant 80-year-old man with extensive coronary artery disease collateralized without intervenable lesions who has consequent [id number] ischemic cardiomyopathy with an ejection of 40%-45%, sustaining syncope in the setting of sustained VT. I recommended secondary prevention single-chamber ICD implant. We discussed the risks and benefits in detail. Ultimately he wishes to proceed. We will maximize his beta blockade and keep him on amiodarone for the short term. PLAN: Single-chamber secondary prevention ICD implant with defibrillation threshold testing. Thank you very much for allowing me to participate in the care of this patient. Please call with any questions. I spent one hour with the patient coordinating his care with greater than 50% of the time spent on counseling.
--- NOTE | 2016-10-19 13:47 | OP ---
[address] [address] OPERATIVE REPORT PATIENT: GEETA REED : 1935 MR#: [id number] ADMIT: 10/15/2016 JOB ID: [id number] DATE OF SURGERY: 10/19/2016 PREOPERATIVE DIAGNOSIS(ES): 1. Ventricular tachycardia. 2. Syncope. 3. Ischemic cardiomyopathy. 4. [place] [employer] class II heart failure symptoms. POSTOPERATIVE DIAGNOSIS(ES): 1. Ventricular tachycardia. 2. Syncope. 3. Ischemic cardiomyopathy. 4. [place] [employer] class II heart failure symptoms. PROCEDURES PERFORMED: 1. Single-chamber secondary prevention ICD implant. 2. Defibrillation threshold testing. 3. Fluoroscopy. 4. Defibrillation threshold testing (VF induction utilizing an implantable defibrillator). SURGEON: Osmel Wu M.D., electrophysiology attending. BAND LINING BANDER: Herbert Jang. IMPLANTED DEVICES: 1. [employer] pulse generator, model YN0002-028, serial #[id number]. 2. RV lead single coil DF4, [employer] 7122Q, 58 cm, serial #[id number]. ANESTHESIA: Bolus dosing of Versed and fentanyl were utilized for appropriate level of sedation. Brevital was utilized for defibrillation threshold testing. INDICATION: The patient is a pleasant 80-year-old man with ischemic heart disease, admitted with ventricular tachycardia and syncope. After discussion of risks and benefits of ICD implantation for secondary prevention of cardiac arrest, he opted to proceed. PROCEDURAL DESCRIPTION: Following informed signed consent, the patient was taken to the EP laboratory in a fasting nonsedated state where he was prepped and draped in usual sterile fashion. The left infraclavicular region was infiltrated with 40 cc of a 50/50 mixture of bupivacaine and lidocaine. Once adequate anesthesia had been achieved, a 3 cm transverse incision was performed. of dissection was carried down to the pectoralis fascia and a pocket was then fashioned using a combination of electrocautery and blunt dissection. Once had been achieved, access to the left lower extremity was done with a micropuncture needle over the first rib to deploy a 0.035, 3 mm J guidewire. Over this, the 7-Wolof tear-away sheath was removed. An active fixation lead and ultimately the RV apex. The lead was affixed in position using associated active fixation screw. It was connected to the external analyzer and demonstrated appropriate sensed R waves, impedance, capture threshold. It was checked to 10 V and there was no evidence of diaphragmatic stimulation. Once the position and redundancy of the leads were confirmed with multiple fluoroscopic views, the leads were anchored to the prepectoralis fascia using associated anchoring sleeve. the pocket was then copiously irrigated with antibiotic solution. The leads were connected to a generator. The generator was placed into the pocket. It was affixed to the floor of the pocket using 1-0 Ti-Cron suture. The incision was closed with running layers of absorbable suture. The wound was dressed with skin adhesive and dressing. At the end the procedure, the needle, sponge, instrument counts were all correct. Defibrillation threshold testing was performed with ventricular fibrillation detection using the patient's device. After appropriate sedation with Brevital and using the DC protocol on the [employer] programmer analyst, ventricular fibrillation was induced with a cycle length of 190 msec. The device sensed appropriately and converted the patient to sinus rhythm with a 25 joule shock. Charge time was 5.6 seconds. Impedance was 84 ohms. COMPLICATIONS: None. ESTIMATED BLOOD LOSS: Negligible. DEVICE MEASURED DATA: 750 ohms, 0.5 V at 0.5 msec. FINAL PROGRAM PARAMETERS: 1. VVI 40 beats per minute. 2. VF zone at 187 beats per minute. ATP during charge, maximum output shocks thereafter. 3. VT 2 zone at 171 beats per minute. ATP followed by shocks. 4. VT monitor zone at 150 beats per minute. IMPRESSION: Successful single-chamber secondary prevention ICD implantation with defibrillation threshold testing and a 10 joule safety margin. PLAN: 1. Stat portable chest x-ray. 2. PA and lateral chest x-ray in the morning. 3. IV vancomycin through tomorrow. 4. Doxycycline 100 mg p.o. daily x7 days starting tomorrow. 5. Wound check in one week. ATTENDING STATEMENT: Osmel Wu M.D., electrophysiology attending, was present for and supervised/performed all aspects of this procedure.
[2016-10-19] MEDS: 0.9% Sodium Chloride 1,000 ML IV SCH ×2 (15:41→22:41)
[2016-10-19] MEDS: Isosorbide Mononitrate 30 mg ER24 Tablet PO SCH (15:41)
--- NOTE | 2016-10-19 16:07 | PCM.PNMED ---
Subjective Date of Service October 19, 2016 Subjective Pt is an 80 year old male with a hx of HTN, hyperlipidemia and DM, tobacco dependence, and a recent abnormal stress test presents to ED via EMS following a syncopal episode for a few minutes just prior to arrival while at rest. Patient reported of having exertional dyspnea for the past month. He reports some discomfort at the pacemaker site but does not have chest pain otherwise. He does not have dyspnea or leg swelling. He has not been able to sleep well here. Exam Vital Signs Vital Sign - Last Date Time Temp Pulse Resp B/P Pulse Ox O2 Delivery O2 Flow Rate FiO2 10/19/16 13:16 36.4 68 16 165/67 91 Room Air 10/19/16 07:39 1.00 Intake and Output 10/18/16 10/18/16 10/19/16 Cumulative From/Thru 15:00 23:00 07:00 10/15/16 18:30 - 10/19/16 06:16 Intake Total 1636 ml 1033 ml 7918 ml Output Total 1025 ml 1225 ml 8050 ml Balance 611 ml -192 ml -132 ml Intake Oral 1636 ml 1033 ml 4389 ml IV Total 3529 ml Output Urine Total 1025 ml 1225 ml 8050 ml # Voids 3 # Bowel Movements 0 0 0 Exam General: No acute distress, well-developed, well-nourished, appropriately interactive and cooperative HEENT: Normocephalic, abrasion noted on left forehead. Neck: Supple with full range of motion. No JVD. Cardiovascular: Regular rate and rhythm, systolic ejection murmur grade II/ with no rubs or gallops appreciated. Pulses equal upper extremity. Decreased right dorsalis pedis pulse. Pulmonary: Clear to auscultation bilaterally without rales, rhonchi, or wheezes.. Normal respiratory effort with no use of accessory muscles. GI: Bowel tones present. Soft, nontender, nondistended. Extremities: No clubbing, cyanosis, edema Skin: Normal temperature, turgor, and texture; no rash, ulcers Neurological: Alert, oriented. non focal. Psychiatric: Normal mood and affect. IVs and Medications Medications Reviewed: Medications were reviewed in detail Lab and Diagnostics Result Diagram: 10/19/16 0320 10/19/16 0320 X-Rays, CTs and MRIs Chest Xray Interpretation: IMPRESSION: No acute intrathoracic pathology. Dictated by: Marco Antonio Givens M.D. on 10/15/2016 at 19:07 View: Portable, 1 view Interpretation / Wet Read by: Interpret - Radiologist CT Head Interpretation IMPRESSION: No CT evidence of acute intracranial pathology. Dictated by: Marco Antonio Givens M.D. on 10/15/2016 at 19:21 Study: Head CT no contrast Interpretation / Wet Read by: Interpret - Radiologist 12-lead ECG ECG Interpretation: Prolonged RI interval. LBBB which is new. QRS 118 previously, 117 by EMS. Now 126. Inverted T wave in lead 3 which is new compared to January 2013. Time: 18:30 Interpreted by: ED physician Normal ECG Interpretation: Normal rate (82), Normal sinus rhythm ECG Interpretation: Sinus tachycardia. PVCs. Intraventricular conduction delay. Rate 95. Time: 19:53 Interpreted by: ED physician Cardiac Echo Impressions Echocardiogram Report Interpretation Summary 1) Mildly enlarged left ventricle with mildly to moderate reduced systolic function (EF about 40%). 2) Basal inferior wall and basal to mid inferolateral wall are akinetic. 3) Normal right ventricular size and function. 4) Moderate aortic stenosis present (valve area 1.1cm2, mean gradient 14.6mmHg, severity ratio 0.30). 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 6) Compared to the Echo done 03/26/2016, aortic stenosis has progressed from mild to moderate range and LV is dilated on today's study. Reading Physician:10 :29 AM Assessment & Plan Pt is an 80 year old male with a hx of HTN, hyperlipidemia and DM, tobacco dependence, and a recent abnormal stress test presents to ED via EMS following a syncopal episode for a few minutes just prior to arrival while at rest with subsequent EKG and further episodes of VT. Ventricular tachycardia present on admission. Stable. No recurrent arrhythmia. - EKG and telemetry tracings reviewed with runs of VT - Echocardiogram performed and showed worsening aortic stenosis and a dilated left ventricle - Repeated CK/MB, troponin both negative - Telemetry - Patient followed by Dr. Sheriff, and he discussed case with Dr. Wu. - Appreciate cardiology consult time and expertise - Discussed with Dr. Sheriff, and if oral amiodarone does not provide enough control then will switch back to IV amiodarone. If amiodarone does not control, then add lidocaine. - ICD placed today for secondary prevention. - Electrophysiology consulted and following. Their time and recommendations are appreciated. Syncope, resolved -likely secondary to ventricular tachycardia -treat as above Acute hypoxic respiratory failure, resolved. - Pt does not use oxygen at home. He had been saturating 98% on on 6L by nasal cannula - Pt does not report a history of COPD but was smoking a cigar/day up until he was admitted. He also has systolic congestive heart failure and obstructive sleep apnea. - He was given a dose of Lasix 2 days ago without significant improvement. His has a net output of -132 ml - Albuterol nebulizers as needed - Continue CPAP at night Chronic conditions: Coronary artery disease, present on admission. Stable. Coronary catheterization revealed two-vessel disease with collateralization but no critical stenoses. - switched to rosuvastatin - switched to metoprolol, continue medical management. Acute on chronic Systolic congestive heart failure, new. - echocardiogram showed EF 40% - continue statin, aspirin, and beta lenny. - Resume BENITA inhibitor pending improved kidney function Hypertension , POA and relatively stable. - continue home amlodipine and metoprolol - Hold lisinopril and chlorthalidone due to kidney function - Imdur added per cardiology Obstructive sleep apnea, POA and stable. - Pt refused CPAP last night Peripheral artery disease, POA. Stable - Right superficial femoral artery lesion visualized during cardiac catheterization - Will need an ankle brachial index and further work up at outpatient Aortic stenosis and mitral regurgitation, moderate, present on admission, stable. - Will need continued monitoring as an outpatient CKD stage III, POA. Stable - BUN/Cr currently at baseline - Hold lisinopril - IV fluids after cardiac catheterization Diabetes mellitus, POA and stable. Most recent A1c at 7.0 in Sep, 2016 - metformin held - on low dose correctional scale Lispro Hyperlipidemia , POA and stable. - switched to rosuvastatin Acetaminophen-fever/headache/mild/moderate pain Antiemetics, as needed Bowel regimen, as needed. Pain Evaluation: Adequate Pain Control GI Prophylaxis: Not indicated VTE Prophylaxis: Sub-Q Heparin (Unfractionated) Resuscitation Status: CPR: Attempt Resuscitation Attending Statement The patient was seen and examined together with Dr. Wick on 10/19/2016 and I agree with the history, exam and plan as outlined in the note above. . My Wick DO October 19, 2016 14:58 Randolph Aguilar MD Oct 21, 2016 19:25
[2016-10-20] VITALS (11 sets, daily range): BP systolic 125–170; BP diastolic 65–78; PULSE 61–80; RESP 16–22; O2SAT 90–96
[2016-10-20] MEDS: Heparin 5,000 Unit/mL Inj SUBQ SCH ×3 (00:46→16:30)
[2016-10-20 04:05] LABS: BASOPHILS % (AUTO) 0.3 % (0-3); EOSINOPHILS % (AUTO) 3.3 % (0-5); MONOCYTES % (AUTO) 10.7 % (4-12); Mean Corpuscular Hemoglobin 30.6 pg (27.0-35.0); NEUTROPHILS % (AUTO) 59.1 % (40-74); Platelet Count 238 bil/L (150-400)
[2016-10-20] MEDS: Isosorbide Mononitrate 30 mg ER24 Tablet PO SCH (07:54)
[2016-10-20] MEDS: Insulin LISPRO 300 Unit/3 mL Inj SUBQ SCH ×4 (07:55→21:57)
[2016-10-20] MEDS: Sodium Chloride LOK Flush 10 mL Syringe IVFLUSH SCH ×4 (07:55→16:48)
[2016-10-20] MEDS: 0.9% Sodium Chloride 1,000 ML IV SCH ×2 (07:55→16:42)
--- NOTE | 2016-10-20 09:02 | DRSVH ---
PROCEDURE: X-RAY CHEST, TWO VIEWS ([id number]) INDICATIONS: For new lead placement TECHNIQUE: 2 views of the chest were acquired. COMPARISON: [facility], CR, XR CHEST 1VW (PORTABLE), 10/19/2016, 10:44. FINDINGS: Surgical changes and devices: Stable position of left chest AICD. Lungs and pleura: No pleural effusions or pneumothorax. Lungs are clear. Mediastinum: Mediastinal contours are normal. Heart size is normal. Bones and chest wall: No suspicious bony abnormalities. Soft tissues appear unremarkable. IMPRESSION: Stable chest post pacer placement. Dictated by: Edson Bustillos RR Interpreted: Jules Oh MD on 10/20/2016 at 9:01 Transcribed by: GLORIA on 10/20/2016 at 9:01 Approved by: Jules Oh M.D. on 10/20/2016 at 10:21
--- NOTE | 2016-10-20 10:05 | PROG NOTE ---
[address] [address] PROGRESS NOTE PATIENT: GEETA REED : 1935 MR#: [id number] ADMIT: 10/15/2016 JOB ID: [id number] DATE: 10/20/2016 SUBJECTIVE: The patient is a very pleasant 80-year-old male, who I am meeting for the first time without any previous cardiac history, although has a longstanding history of hypertension, hyperlipidemia, diabetes, tobacco addiction, and a history of carotid disease. He had an echocardiogram in March 2016 that showed an ejection fraction around 40% to 45% with a scar in the proximal and mid inferoposterior agarwal with associated moderate mitral regurgitation and mild aortic stenosis. He recently has noted exertional dyspnea without any chest pain and underwent a pharmacologic perfusion imaging study on October 07, 2016 that showed an ejection fraction of 41%. Again with inferolateral akinesis that corresponded to a moderately large, partially reversible inferolateral perfusion defect, consistent with previous infarction with modest distal jignesh-infarct ischemia. He was admitted on October 16, 2016 after a syncopal episode with documented prolonged runs of nonsustained monomorphic VT with associated chest discomfort during his episodes, but none otherwise. He was given IV amiodarone with stabilization. His BUN and creatinine on admission was 39 and 1.4 with normal electrolytes and a normal troponin. Repeat echocardiography was essentially unchanged except for slight progression of his aortic stenosis now with a mean gradient of 15 mmHg. He underwent cardiac catheterization, and I have personally reviewed those films. This reveals a 30% to 40% distal left main stenosis with complete occlusion of the left circumflex and RCA with faint collaterals from the LAD which has only mild diffuse disease. There is felt to be no good revascularization targets and therefore has been treated medically. His LVEDP was 27 mmHg and on the basis of this was started on chlorthalidone with diuresis of around 1 L. His creatinine had improved down to 1.25 with a BUN of 20, but now has increased up to 1.8 and 34, respectively and therefore his chlorthalidone was stopped. He underwent successful placement of a single-chamber ICD yesterday without complication. Today, he feels well and has ambulated about the room, but none otherwise. He denies any chest discomfort and has noted no significant dyspnea. He has had no sense of any palpitations, although telemetry continues to show frequent PVCs with occasional couplets and triplets, but nonsustained VT. He denies any edema. PHYSICAL EXAMINATION: A very pleasant, mildly overweight, elderly male, in no distress. HR 75. BP has generally been in the 125-150 range. His weight is inaccurate today. Lungs slightly reduced breath sounds throughout, but no rales or wheeze. CV regular rate and rhythm with a 2/6 systolic ejection murmur, but with normal carotids. There is no obvious JVD. Abdomen mildly obese but nondistended. Extremities warm without edema. LABORATORY: White count this morning is 10.1, hematocrit of 36%. It is down slightly. Potassium is 4.3 with a BUN of 34 and a creatinine 1.8 with a magnesium level 2.0. LFTs are normal. TSH is 1.66. Telemetry shows predominantly sinus rhythm with occasional ventricular ectopy. IMPRESSION: 1. Symptomatic monomorphic ventricular tachycardia. This appears to have been adequately suppressed by amiodarone and he is now protected with an implantable cardioverter defibrillator. I have discussed the case with Dr. Mills, and he recommends continuing his amiodarone at 400 mg b.i.d. until tomorrow at which time he can be discharged on 400 mg daily for 1 week and then down to 200 mg daily thereafter with possible elimination of amiodarone, depending upon success in preventing recurrent symptomatic VT. I discussed with the patient and the family the potential side effects of amiodarone and they understand and are accepting of this. With his chronic obstructive pulmonary disease, I would attempt to try to minimize the amiodarone over time. Electrolytes should be monitored quite closely as well. 2. 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 He appears to be well compensated on exam today and has been started on metoprolol and Imdur as antianginals. Hopefully, this will be successful in preventing his dyspnea, which I suspect was more likely an anginal equivalent. He may require chronic diuretic therapy, but given his current renal insufficiency and exam, I am reluctant to do so at this time. I will have him follow up with Dr. Maldonado in 2-3 weeks for continued monitoring of this. Secondary prevention should be pursued. 3. Acute on chronic renal insufficiency. I suspect this is secondary to his contrast load at the time of catheterization. Hopefully, this will improve. If it returns back to baseline levels, low-dose angiotensin-converting enzyme inhibitor can be considered. 4. Hyperlipidemia. Given the interaction with amiodarone with simvastatin and atorvastatin, I have changed him to rosuvastatin. Repeat lipid panel should be obtained in around 6 weeks. 5. Sleep apnea. I have encouraged him to continue with this. 6. Tobacco addiction. Encouraged to abstain. 7. Diabetes. Management per the hospitalist. RECOMMENDATIONS: 1. Continue current medications and continue to track electrolytes and renal function. 2. If he remains clinically stable with stable laboratory he can be discharged tomorrow on his current regimen with the exception of reducing his amiodarone to 400 mg daily for one week followed by 200 mg daily. 3. The patient will follow up in the device clinic in 1 week with subsequent followup of his arrhythmias by Dr. Wu. 4. I will have the patient follow up with Dr. Maldonado in 2-3 weeks in regards to his underlying ischemic heart disease and other cardiac issues. At this point, I will sign off. If you have any further questions or concerns, please do not hesitate to call. I spent a total of 58 minutes reviewing the patient's medical record including his imaging studies, discussing with Dr. Wu, examining and interviewing the patient, and answering his and his family's questions.
--- NOTE | 2016-10-20 15:21 | PCM.PNMED ---
Subjective Date of Service October 20, 2016 Subjective Pt is an 80 year old male with a hx of HTN, hyperlipidemia and DM, tobacco dependence, and a recent abnormal stress test presents to ED via EMS following a syncopal episode for a few minutes just prior to arrival while at rest. Patient reported of having exertional dyspnea for the past month. He continues to feel better. He does not have chest pain, dyspnea, palpitations , or leg swelling. He has not had a bowel movement yet. Exam Vital Signs Vital Sign - Last Date Time Temp Pulse Resp B/P Pulse Ox O2 Delivery O2 Flow Rate FiO2 10/20/16 14:00 66 16 95 Room Air 10/20/16 11:44 36.8 135/68 10/19/16 21:10 0.00 Intake and Output 10/19/16 10/19/16 10/20/16 Cumulative From/Thru 15:00 23:00 07:00 10/15/16 18:30 - 10/20/16 06:49 Intake Total 500 ml 760 ml 746 ml 9924 ml Output Total 300 ml 800 ml 1050 ml 21539 ml Balance 200 ml -40 ml -304 ml -276 ml Intake Oral 760 ml 5149 ml IV Total 500 ml 746 ml 4775 ml Output Urine Total 300 ml 800 ml 1050 ml 43115 ml # Voids 3 # Bowel Movements 0 0 Exam General: No acute distress, well-developed, well-nourished, appropriately interactive and cooperative HEENT: Normocephalic, eschar noted on left forehead. Neck: Supple with full range of motion. No JVD. Cardiovascular: Regular rate and rhythm, systolic ejection murmur grade II/ with no rubs or gallops appreciated. Pulses equal upper extremity. Decreased right dorsalis pedis pulse. Pulmonary: Clear to auscultation bilaterally without rales, rhonchi, or wheezes.. Normal respiratory effort with no use of accessory muscles. GI: Bowel tones present. Soft, nontender, nondistended. Extremities: No clubbing, cyanosis, edema Skin: Normal temperature, turgor, and texture; no rash, ulcers Neurological: Alert, oriented. non focal. Psychiatric: Normal mood and affect. IVs and Medications Medications Reviewed: Medications were reviewed in detail Lab and Diagnostics Result Diagram: 10/20/16 0345 10/20/16 0345 X-Rays, CTs and MRIs Chest Xray Interpretation: IMPRESSION: No acute intrathoracic pathology. Dictated by: Marco Antonio Givens M.D. on 10/15/2016 at 19:07 View: Portable, 1 view Interpretation / Wet Read by: Interpret - Radiologist CT Head Interpretation IMPRESSION: No CT evidence of acute intracranial pathology. Dictated by: Marco Antonio Givens M.D. on 10/15/2016 at 19:21 Study: Head CT no contrast Interpretation / Wet Read by: Interpret - Radiologist 12-lead ECG ECG Interpretation: Prolonged CO interval. LBBB which is new. QRS 118 previously, 117 by EMS. Now 126. Inverted T wave in lead 3 which is new compared to January 2013. Time: 18:30 Interpreted by: ED physician Normal ECG Interpretation: Normal rate (82), Normal sinus rhythm ECG Interpretation: Sinus tachycardia. PVCs. Intraventricular conduction delay. Rate 95. Time: 19:53 Interpreted by: ED physician Cardiac Echo Impressions Echocardiogram Report Interpretation Summary 1) Mildly enlarged left ventricle with mildly to moderate reduced systolic function (EF about 40%). 2) Basal inferior wall and basal to mid inferolateral wall are akinetic. 3) Normal right ventricular size and function. 4) Moderate aortic stenosis present (valve area 1.1cm2, mean gradient 14.6mmHg, severity ratio 0.30). 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 6) Compared to the Echo done 03/26/2016, aortic stenosis has progressed from mild to moderate range and LV is dilated on today's study. Reading Physician:10 :29 AM Assessment & Plan Pt is an 80 year old male with a hx of HTN, hyperlipidemia and DM, tobacco dependence, and a recent abnormal stress test presents to ED via EMS following a syncopal episode for a few minutes just prior to arrival while at rest with subsequent EKG and further episodes of VT. Ventricular tachycardia present on admission. Stable. No recurrent arrhythmia. - EKG and telemetry tracings reviewed with runs of VT - Echocardiogram performed and showed worsening aortic stenosis and a dilated left ventricle - Repeated CK/MB, troponin both negative - Telemetry - Patient followed by Dr. Sheriff, and he discussed case with Dr. Wu. - Appreciate cardiology consult time and expertise - Discussed with Dr. Jaziel, and if oral amiodarone does not provide enough control then will switch back to IV amiodarone. If amiodarone does not control, then add lidocaine. - ICD placed on 10/19/16 for secondary prevention. - Electrophysiology consulted and following. Their time and recommendations are appreciated. - Cardiology advised to decrease amiodarone to 400 mg once daily tomorrow and to follow up in [address] Wu's office. Syncope, resolved -likely secondary to ventricular tachycardia -treat as above Acute hypoxic respiratory failure, resolved. - Pt does not use oxygen at home. He had been saturating 98% on on 6L by nasal cannula - Pt does not report a history of COPD but was smoking a cigar/day up until he was admitted. He also has systolic congestive heart failure and obstructive sleep apnea. - He was given a dose of Lasix 2 days ago without significant improvement. His has a net output of -132 ml - Albuterol nebulizers as needed - Continue CPAP at night Chronic conditions: Coronary artery disease, present on admission. Stable. Coronary catheterization revealed two-vessel disease with collateralization but no critical stenoses. - switched to rosuvastatin - switched to metoprolol, continue medical management. - Follow up with Dr. Maldonado as an outpatient - Patient is interested in cardiac rehabilitation as an outpatient Acute on chronic Systolic congestive heart failure, new. - echocardiogram showed EF 40% - continue statin, aspirin, and beta lenny. - Resume BENITA inhibitor pending improved kidney function Hypertension , POA and relatively stable. - continue home amlodipine and metoprolol - Hold lisinopril and chlorthalidone due to kidney function - Imdur added per cardiology Obstructive sleep apnea, POA and stable. - Pt refused CPAP last night Peripheral artery disease, POA. Stable - Right superficial femoral artery lesion visualized during cardiac catheterization - Will need an ankle brachial index and further work up at outpatient Aortic stenosis and mitral regurgitation, moderate, present on admission, stable. - Will need continued monitoring as an outpatient CKD stage III, POA. Stable - BUN/Cr likely slightly worsened by contrast during coronary angiogram, vancomycin antibiotics, and diuresis - Hold lisinopril and chlorthalidone - Continue to monitor Diabetes mellitus, POA and stable. Most recent A1c at 7.0 in Sep, 2016 - metformin held - on low dose correctional scale Lispro Hyperlipidemia , POA and stable. - switched to rosuvastatin Acetaminophen-fever/headache/mild/moderate pain Antiemetics, as needed Bowel regimen, as needed. Pain Evaluation: Adequate Pain Control GI Prophylaxis: Not indicated VTE Prophylaxis: Sub-Q Heparin (Unfractionated) Resuscitation Status: CPR: Attempt Resuscitation Attending Statement The patient was seen and examined together with Dr. Wick on 10/20/2016 and I agree with the history, exam and plan as outlined in the note above. . My Wick DO October 20, 2016 15:17 Randolph Aguilar MD Oct 21, 2016 19:25
[2016-10-21] VITALS (7 sets, daily range): BP systolic 136–183; BP diastolic 63–69; PULSE 59–82; RESP 16–20; O2SAT 94–97
[2016-10-21] MEDS: Heparin 5,000 Unit/mL Inj SUBQ SCH ×2 (00:30→09:52)
[2016-10-21] MEDS: Sodium Chloride LOK Flush 10 mL Syringe IVFLUSH SCH ×4 (00:30→09:52)
[2016-10-21] MEDS: 0.9% Sodium Chloride 1,000 ML IV SCH ×2 (02:42→11:56)
[2016-10-21 04:00] LABS: BASOPHILS % (AUTO) 0.3 % (0-3); EOSINOPHILS % (AUTO) 3.2 % (0-5); MONOCYTES % (AUTO) 10.1 % (4-12); Mean Corpuscular Hemoglobin 30.7 pg (27.0-35.0); Mean Corpuscular Volume 89.4 fL (81-100); NEUTROPHILS % (AUTO) 59.3 % (40-74); Platelet Count 240 bil/L (150-400)
[2016-10-21 04:23] LABS: Magnesium 2.1 mg/dL (1.6-2.6)
[2016-10-21] MEDS: Insulin LISPRO 300 Unit/3 mL Inj SUBQ SCH ×3 (08:00→11:56)
[2016-10-21] MEDS ORDERED: 0.9% Sodium Chloride 1,000 ML IV ONE (09:10)
[2016-10-21] MEDS: Isosorbide Mononitrate 30 mg ER24 Tablet PO SCH (09:52)
[2016-10-21] MEDS ORDERED: METO25TA6 PO (13:33)
[2016-10-21] MEDS ORDERED: NITR0.4T SL (13:33)
[2016-10-21] MEDS ORDERED: ISOS30TA4 PO (13:33)
[2016-10-21] MEDS ORDERED: AMIO200T PO (13:33)
[2016-10-21] MEDS ORDERED: CREST10T PO (13:33)
--- NOTE | 2016-10-21 13:54 | PCM.DIMED ---
My Wick 10/21/16 0654: Discharge Instructions Date of Service Oct 21, 2016 Dates of Hospitalization October 15, 2016 at 20:44 Discharge Diagnosis Discharge Diagnosis You had a heart arrhythmia, which caused you to faint. You have been treated with medications and now have a defibrillator. You also have heart disease that is being managed with medications. Diet Discharge Diet: Heart Healthy Activity Discharge Activity: Limited until seen by PCP Call your provider Call your provider for: Fever or Chills, Shortness of breath, Bleeding, Chest pain, Vomitting, Excessive diarrhea, Weakness (unilateral) Patient Instructions Patient Instructions Starting today reduce amiodarone to 400 mg once daily for 1 week (6 more days because you had a dose this morning), and then decrease to 200 mg once per day there after unless notified by your brancher. You can discuss this at your follow up appointment in 1 week. Continue aspirin 81 mg daily and amlodpine 5 mg daily. Start isosorbide mononitrate 30 mg once daily, metoprolol tartrate 25 mg twice per day, and rosuvastatin 40 mg once daily at bedtime. Stop chlorthalidone, lisinopril, and simvastatin. You have also been given a prescription for nitroglycerin sublingual tablets. If you have chest pain, dissolve one tablet underneath your tongues every 5 minutes up to 3 times maximum, and call 911 or have someone take you to the hospital. Do not take at the same time as isosorbide mononitrate. Continue to drink fluids but limit your salt (sodium) intake to 2,000 mg daily. If you notice that you have trouble breathing, swelling in your legs, increased size of your abdomen, or weight gain, please seek medical attention. If you notice pain or numbness in your right leg, please seek medical attention. Follow up with the cardiac rehabilitation clinic when first available. Follow up with Dr. Wu's office in 1 week for a device check and to review your heart rhythm. Follow up with Dr. Maldonado, brancher, in 2-3 weeks for your overall heart health. Follow up with your primary care provider, Dr. Shane, in 7-10 days to review your hospital stay. Please have a basic metabolic panel done on Tuesday to check your kidney function. You can also discuss possibly following up with your car repairer, kidney specialist, sooner than previously scheduled. Keep up the good work with no longer smoking cigars! Follow-up Provider: Ramirez Shane MD Follow-up with PCP in: 1 week Provider: Osmel Wu MD Follow-up in: 1 week Mid-level Provider (F9): Mars Maldonado MD Follow-up with Mid-level in: 2 weeks (2-3 weeks) Cardiac Rehab: Other (when first available) Randolph Aguilar MD 10/21/16 1926: Discharge Instructions Attending's Statement The patient was seen and examined together with Dr. Wick on 10/21/2016 and I agree with the history, exam and plan as outlined in the note above. . My Wick DO Oct 21, 2016 06:54 Randolph Aguilar MD Oct 21, 2016 19:26
--- NOTE | 2016-10-23 17:53 | PCM.DC.MED ---
Discharge Summary Date of Service Oct 23, 2016 Dates of Hospitalization Date of Hospital Admission October 15, 2016 at 20:44 Date of Discharge: Oct 21, 2016 Providers: Admitting Physician: Safia Medley DO Primary Care Physician: Ramirez Shane MD Attending Physician: Safia Medley DO Diagnosis at Time of Discharge Diagnosis at Time of Discharge Ventricular tachycardia Syncope Acute hypoxic respiratory failure Chronic conditions: Coronary artery disease Acute on chronic systolic congestive heart failure Essential hypertension Obstructive sleep apnea Peripheral artery disease Aortic stenosis and mitral regurgitation, moderate Chronic kidney disease stage III Diabetes mellitus type II Hyperlipidemia Consultations Cardiology: Recommended patient follow up with Dr. Maldonado in 2-3 weeks in regards to his underlying ischemic heart disease and other cardiac issues; decrease amiodarone to 400 mg daily for one week followed by 200 mg daily; and patient will follow up in the device clinic in 1 week with subsequent followup of his arrhythmias by Dr. Wu. Electrophysiology: Placed an implantable cardioverter defibrillator for secondary prevention of ventricular tachycardia Procedures XRay, CTs & MRIs Chest Xray Interpretation: IMPRESSION: No acute intrathoracic pathology. Dictated by: Marco Antonio Givens M.D. on 10/15/2016 at 19:07 View: Portable, 1 view Interpretation / Wet Read by: Interpret - Radiologist CT Head Interpretation IMPRESSION: No CT evidence of acute intracranial pathology. Dictated by: Marco Antonio Givens M.D. on 10/15/2016 at 19:21 Study: Head CT no contrast Interpretation / Wet Read by: Interpret - Radiologist ECG 12 Lead ECG Interpretation: Prolonged LA interval. LBBB which is new. QRS 118 previously, 117 by EMS. Now 126. Inverted T wave in lead 3 which is new compared to January 2013. Time: 18:30 Interpreted by: ED physician Normal ECG Interpretation: Normal rate (82), Normal sinus rhythm ECG Interpretation: Sinus tachycardia. PVCs. Intraventricular conduction delay. Rate 95. Time: 19:53 Interpreted by: ED physician Cardiac Echo Impression Echocardiogram Report Interpretation Summary 1) Mildly enlarged left ventricle with mildly to moderate reduced systolic function (EF about 40%). 2) Basal inferior wall and basal to mid inferolateral wall are akinetic. 3) Normal right ventricular size and function. 4) Moderate aortic stenosis present (valve area 1.1cm2, mean gradient 14.6mmHg, severity ratio 0.30). 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 6) Compared to the Echo done 03/26/2016, aortic stenosis has progressed from mild to moderate range and LV is dilated on today's study. Reading Physician:10 :29 AM Invasive Procedures Left heart catheterization with coronary angiogram Implantable cardioverter defibrillator Brief History From the history and physical performed by Dr. Teresa Kelley on 10/16/2016: Pt is an 80 year old male with a hx of HTN, hyperlipidemia and DM, tobacco dependence, and a recent abnormal stress test presents to ED via EMS following a syncopal episode for a few minutes just prior to arrival while at rest. Patient reports of having exertional dyspnea for the past month. He denies any SOB or chest pain. He does report feeling lightheaded just before the episode and hitting his head when he lost consciousness. En route, medics performed an EKG which showed 2 runs of V-tach lasting approximately 20 beats. He had a stress test 1 week ago and was informed of results today, which showed that the lower chambers of his heart are not getting enough O2 which he was told to follow up for in the next week. Pt reports intermittent dyspnea on exertion for 1 month which is why he had the stress test. He denies any previous syncopal episodes ever before. Pt routinely takes baby aspirin, metformin, and simvastatin. In the ED vitals T 36.7, P 83, RR 27, BP 190/75, oxygen 95% on room air. Labs significant for WBC 13.1, BUN/creatinine 39, creatinine 1.56, glucose 158. Magnesium 2.5. Troponin 1 negative. UA negative. Chest x-ray and CT head with no acute findings. ECG showed prolonged LA interval. New onset LBBB. QRS 126. Inverted T-wave in lead 3, new findings compared to January 2013. Second ECG showed sinus tachycardia. PVCs. Intraventricular conduction delay. Rate 95. His monitor showed runs of V. tach up to 20 beats several times in the ambulance. Patient has been asymptomatic since arrival. EKG revealing new left bundle branch block and inverted T-wave in V3, new findings when compared with EKG in 2012. Dr. Sheriff of cardiology is consulted, catheterization not recommended at this time due to patient not currently short of breath or having any chest pain. To be admitted for further workup with cardiology consult in the morning. Repeat CK-MB and troponin ordered for 3 hours later. Patient given aspirin on arrival and metoprolol IV for elevated blood pressures. Patient had an episode of symptomatic sustained Vtach with CP and SOB. Dr. Sheriff notified. PCP: Dr. Ramirez Shane Stress test from 10/07/16 IMPRESSION: Nonspecific electrocardiogram changes with pharmacologic stress with baseline height and blunted chronotropic response to exercise noted. Moderately enlarged ventricle with posterior and lateral wall motion abnormality with a reduced ejection fraction of 41% Moderately large inferior and lateral region of perfusion abnormality with moderate improvement in the mild and distal segments of the posterolateral wall with severe fixed hypoperfusion of the basal segments of the inferior and posterior wall. DISCUSSION: This is a abnormal nuclear study suggesting previous infarction in the territory of the distal circumflex or right coronary artery with a moderate amount of residual ischemia. Hospital Course Patient is an 80 year old male with a history of hypertension, hyperlipidemia, diabetes mellitus, and tobacco dependence presented to emergency department via emergency medical services following a syncopal episode for a few minutes just prior to arrival while at rest with subsequent EKG and further episodes of ventricular tachycardia. Ventricular tachycardia present on admission. Stable. No recurrent arrhythmia. - EKG and telemetry tracings reviewed with runs of ventricular tachycardia - Echocardiogram performed and showed worsening aortic stenosis and a dilated left ventricle - Repeated CK/MB and troponin both were negative - Appreciated cardiology consult time and expertise - Implantable cardioverter defibrillator placed on 10/19/16 for secondary prevention. - Electrophysiology consulted and following. Their time and recommendations were appreciated. - Patient was given amiodarone intravenously followed by amiodarone 400 mg twice per day - Cardiology advised to decrease amiodarone to 400 mg once daily and to follow up in [address] Wu's office. Syncope, resolved -Secondary to ventricular tachycardia as above Acute hypoxic respiratory failure, resolved. - Patient does not use oxygen at home. He had been saturating 98% on on 6L by nasal cannula, but on day of discharge, his oxygen saturation was 94% on room air. - Patient does not report a history of COPD but was smoking a cigar per day up until he was admitted to the hospital. He also has systolic congestive heart failure and obstructive sleep apnea. - He was given a dose of furosemide without significant improvement. He had a net output of -34 ml - Continued CPAP at night Chronic conditions: Coronary artery disease, present on admission, stable. Coronary catheterization revealed two-vessel disease (occluded mid circumflex with left to right collaterals and right to left collaterals; as well as intact LAD (left anterior descending) distribution; and occluded proximal RCA with [id number] collaterals to the distal RCA (right coronary artery) into an RV (right ventricle) branch) but no critical stenoses. -Changed to rosuvastatin 40 mg daily due to less interaction with amiodarone - Changed to metoprolol tartrate 25 mg twice per day and continued aspirin. - Follow up with Dr. Maldonado as an outpatient - Patient is interested in cardiac rehabilitation as an outpatient Acute on chronic systolic congestive heart failure, new. - Echocardiogram showed ejection fraction of 40% - Continued statin, aspirin, and beta lenny - Consider resuming an BENITA inhibitor pending improved or stable kidney function Essential hypertension, present on admission, stable. - Continued home amlodipine 5 mg once daily - Metoprolol tartrate 25 mg twice per day - Held lisinopril and chlorthalidone due to kidney function - Isosorbide mononitrate ER 30 mg once daily Obstructive sleep apnea, present on admission, stable. - Continue CPAP Peripheral artery disease, present on admission, stable - Right superficial femoral artery lesion visualized during cardiac catheterization. Patient was asymptomatic and had a palpable dorsalis pedis pulse. - Will need an ankle brachial index and further work up at outpatient Aortic stenosis and mitral regurgitation, moderate, present on admission, stable. - Will need continued monitoring as an outpatient - Follow up with cardiology as above Chronic kidney disease stage III, present on admission, stable. - BUN/Cr likely slightly worsened by contrast during coronary angiogram, vancomycin antibiotics, and diuresis - Held lisinopril and chlorthalidone and given a fluid bolus Diabetes mellitus type II, present on admission, stable. Most recent A1c at 7.0 in Sep, 2016 - Metformin held during hospitalization and was given low dose correctional scale Lispro Hyperlipidemia, present on admission, stable. - Changed to rosuvastatin as above Mr. Alex Maki is an 80 year old male with a history of hypertension, hyperlipidemia, diabetes mellitus, and tobacco dependence who presented to emergency department via emergency medical services following a syncopal episode for a few minutes just prior to arrival while at rest with subsequent EKG and further episodes of ventricular tachycardia. He was started on amiodarone, which resolved his ventricular tachycardia during his hospitalization. He also underwent a cardiac catheterization with coronary angiogram that showed two-vessel coronary artery disease not appropriate for revascularization and treated with medical management. He had an implantable cardioverter defibrillator placed for secondary prevention. His blood pressure medications were adjusted in light of worsening kidney function, which stabilized on day of discharge. A message was left with Dr. Shane's office on day of discharge 10/23/2016 to notify of patient's discharge. Exam Vital Signs (Last) Date Time Temp Pulse Resp B/P Pulse Ox O2 Delivery O2 Flow Rate FiO2 10/21/16 11:40 36.7 59 18 136/63 94 Room Air 10/19/16 21:10 0.00 Exam General: No acute distress, well-developed, well-nourished, appropriately interactive and cooperative HEENT: Normocephalic, eschar noted on left forehead. Neck: Supple with full range of motion. No JVD. Cardiovascular: Regular rate and rhythm, systolic ejection murmur grade II/ with no rubs or gallops appreciated. Pulses equal upper extremity. Decreased but palpable right dorsalis pedis pulse. Pulmonary: Clear to auscultation bilaterally without rales, rhonchi, or wheezes.. Normal respiratory effort with no use of accessory muscles. GI: Bowel tones present. Soft, nontender, nondistended. Extremities: No clubbing, cyanosis, edema Skin: Normal temperature, turgor, and texture; no rash, ulcers Neurological: Alert, oriented. non focal. Psychiatric: Normal mood and affect. Test 10/15/16 18:25 10/15/16 18:48 10/15/16 21:40 10/15/16 22:00 Prothrombin Time 10.2sec (8.1-12.5) Prothromb Time International Ratio 0.95ratio Activated Partial Thromboplast Time 29.9sec (22.8-33.0) Urine Color Yellow (YELLOW) Urine Appearance Clear (CLEAR,HAZY) Urine pH 5.5 (5.0-8.0) Urine Specific [place] 1.020 (1.003-1.035) Urine Protein 100mg/dL (NEG,TRACE) Urine Glucose (UA) Negativemg/dL (NEGATIVE) Urine Ketones Negativemg/dL (NEGATIVE) Urine Occult Blood Negative (NEGATIVE) Urine Nitrite Negative (NEGATIVE) Urine Bilirubin Negative (NEGATIVE) Urine Urobilinogen Normalmg/dL (NORMAL) Urine Leukocyte Esterase Negative (NEGATIVE) Urine RBC 0-2/hpf (0-2) Urine WBC 0-5/hpf (0-5) Urine Epithelial Cells Occasional/hpf (NONE-MOD) Urine Crystals None seen (NONE SEEN) Urine Bacteria None/hpf (NONE-FEW) Urine Hyaline Casts None/lpf (NONE) Urine Granular Casts None seen (NONE SEEN) Urine Waxy Casts None seen (NONE SEEN) Urine Red Blood Cell Casts None seen (NONE SEEN) Urine White Blood Cell Casts None seen (NONE SEEN) Urine Mucus None seen (None Seen) Urine Trichomonas None seen (NONE SEEN) Urine Yeast None (NONE SEEN) Urinalysis Comment None Urine Culture Reflexed Not indicated Total Creatine Kinase 112U/L (21-232) Creatine Kinase MB 3.9ng/mL (0.0-10.4) Creatine Kinase MB % % (0.0-5.0) Hold Urine Received (Received) Test 10/16/16 08:55 10/19/16 03:20 10/20/16 03:45 10/21/16 03:45 Troponin T 0.010ug/L (0.0-0.011) Pro-B-Type Natriuretic Peptide 400.5pg/mL (0-486) Procalcitonin 0.14ng/mL (0.00-0.08) Thyroid Stimulating Hormone (TSH) 1.660uIU/mL (0.450-4.500) White Blood Count 10.1th/mm3 (3.8-10.1) Red Blood Count 4.04mil/mm3 (4.40-5.80) Hemoglobin 12.4g/dL (13.8-17.2) Hematocrit 36.1% (41.0-50.0) Mean Corpuscular Volume 89.4fL (81-100) Mean Corpuscular Hemoglobin 30.7pg (27.0-35.0) Mean Corpuscular Hemoglobin Concent 34.3% (32.0-37.0) Red Cell Distribution Width 12.5% (12.3-15.4) Platelet Count 240bil/L (150-400) Neutrophils (%) (Auto) 59.3% (40-74) Lymphocytes (%) (Auto) 26.8% (14-46) Monocytes (%) (Auto) 10.1% (4-12) Eosinophils (%) (Auto) 3.2% (0-5) Basophils (%) (Auto) 0.3% (0-3) Magnesium Level 2.1mg/dL (1.6-2.6) Total Bilirubin 0.4mg/dL (0.0-1.2) Aspartate Amino Transf (AST/SGOT) 18U/L (0-50) Alanine Aminotransferase (ALT/SGPT) 19U/L (0-44) Alkaline Phosphatase 61U/L (25-160) Total Protein 6.3g/dL (6.4-8.4) Albumin 3.7g/dL (3.4-5.0) Test 10/21/16 11:45 Sodium Level 137mEq/L (134-144) Potassium Level 4.3mEq/L (3.5-5.2) Chloride Level 98mEq/L (97-108) Carbon Dioxide Level 22mmol/L (18-29) Blood Urea Nitrogen 32mg/dL (8-27) Creatinine 1.85mg/dL (0.76-1.27) Estimat Glomerular Filtration Rate 37mL/min (>59) Glucose Level 222mg/dL (60-99) Calcium Level 8.8mg/dL (8.5-10.1) Discharge Medications Discharge Medications Amiodarone (Amiodarone) 200 Mg Tablet 400 MG PO DAILY Take 2 tablets by mouth once daily for 6 days and then take 1 tablet by mouth once daily there after Prescribed by: JOSE WICK DO Amlodipine (Amlodipine) 5 Mg Tablet 5 MG PO QAM (Reported) Aspirin (Aspirin) 81 Mg Tablet 81 MG PO HS (Reported) Isosorbide MN ER (Isosorbide MN ER) 30 Mg Tab.er.24h 30 MG PO DAILY Prescribed by: JOSE WICK DO Metformin (Metformin) 500 Mg Tablet 250 MG PO BID (Reported) Metoprolol Tartrate (Metoprolol Tartrate) 25 Mg Tablet 25 MG PO BID Prescribed by: JOSE WICK DO Multivitamin (Multivitamins) 1 Each Capsule 1 EACH PO DAILY (Reported) [place]-3/Dha/Epa/Fish Oil (Fish Oil 1,000 mg Softgel) 1 Each Capsule 1 EACH PO DAILY (Reported) Rosuvastatin Calcium (Crestor) 10 Mg Tablet 40 MG PO DAILY Prescribed by: JOSE WICK DO As needed Nitroglycerin SL (Nitrostat) 0.4 Mg Tab.subl 0.4 MG SL Q5MIN PRN PRN For Chest Pain IF SBP > 90 Prescribed by: JOSE WICK DO Followup Plan Discharge Diet: Heart Healthy Discharge Activity: Limited until seen by PCP Patient Instructions Starting today reduce amiodarone to 400 mg once daily for 1 week (6 more days because you had a dose this morning), and then decrease to 200 mg once per day there after unless notified by your fund controller. You can discuss this at your follow up appointment in 1 week. Continue aspirin 81 mg daily and amlodpine 5 mg daily. Start isosorbide mononitrate 30 mg once daily, metoprolol tartrate 25 mg twice per day, and rosuvastatin 40 mg once daily at bedtime. Stop chlorthalidone, lisinopril, and simvastatin. You have also been given a prescription for nitroglycerin sublingual tablets. If you have chest pain, dissolve one tablet underneath your tongues every 5 minutes up to 3 times maximum, and call 911 or have someone take you to the hospital. Do not take at the same time as isosorbide mononitrate. Continue to drink fluids but limit your salt (sodium) intake to 2,000 mg daily. If you notice that you have trouble breathing, swelling in your legs, increased size of your abdomen, or weight gain, please seek medical attention. If you notice pain or numbness in your right leg, please seek medical attention. Follow up with the cardiac rehabilitation clinic when first available. Follow up with Dr. Wu's office in 1 week for a device check and to review your heart rhythm. Follow up with Dr. Maldonado, fund controller, in 2-3 weeks for your overall heart health. Follow up with your primary care provider, Dr. Shane, in 7-10 days to review your hospital stay. Please have a basic metabolic panel done on Tuesday to check your kidney function. You can also discuss possibly following up with your button sewer, kidney specialist, sooner than previously scheduled. Keep up the good work with no longer smoking cigars! Follow-up Provider: Ramirez Shane MD Follow-up with PCP in: 1 week Provider: Osmel Wu MD Follow-up in: 1 week Mid-level Provider: Mars Maldonado MD Follow-up with Mid-level in: 2 weeks (2-3 weeks) Cardiac Rehab: Other (when first available) Time spent Greater than 30 minutes was spent in preparation of discharge with greater than 50% of that time dedicated to patient counseling and coordination of care. . Attending Statement The patient was seen and examined together with Dr. Wick on 10/21/2016 and I agree with the history, exam and plan as outlined in the note above. . copies to: Ramirez Shane MD, Marissa L DO Oct 23, 2016 16:55 Randolph Aguilar MD Oct 24, 2016 07:59
== END 2016-10-21 14:57 | disposition home or self-care (01) | DRG 224 ==
LOC: EDBD 18:19 → SED 18:19 → EDUNIT# 18:19 → PCC 20:44 → CCU 10-16 18:22 → PCC 10-17 15:01
PROVIDERS: ADMIT Internal Medicine; ATTEND Internal Medicine
PROC: 4A023N7 Measurement of Cardiac Sampling and Pressure, Left Heart, Percutaneous Approach (ICD-10-PCS; 2016-10-16)
PROC: B2111ZZ Fluoroscopy of Multiple Coronary Arteries using Low Osmolar Contrast (ICD-10-PCS; 2016-10-16)
PROC: 0JH608Z Insertion of Defibrillator Generator into Chest Subcutaneous Tissue and Fascia, Open Approach (ICD-10-PCS; principal; 2016-10-19)
PROC: 02HK3KZ Insertion of Defibrillator Lead into Right Ventricle, Percutaneous Approach (ICD-10-PCS; 2016-10-19)
DX: I47.2 Ventricular tachycardia (principal); J96.01 Acute respiratory failure with hypoxia; I50.23 Acute on chronic systolic (congestive) heart failure; R55 Syncope and collapse; I25.5 Ischemic cardiomyopathy; I25.10 Atherosclerotic heart disease of native coronary artery without angina pectoris; E78.5 Hyperlipidemia, unspecified; E11.9 Type 2 diabetes mellitus without complications; Z79.4 Long term (current) use of insulin; F17.210 Nicotine dependence, cigarettes, uncomplicated; I12.9 Hypertensive chronic kidney disease with stage 1 through stage 4 chronic kidney disease, or unspecified chronic kidney disease; N18.3 Chronic kidney disease, stage 3 (moderate); G47.33 Obstructive sleep apnea (adult) (pediatric); J44.9 Chronic obstructive pulmonary disease, unspecified

== ENCOUNTER 2016-11-07 21:50 | Inpatient (IN) | payer MEDICARE ==
[~2016-11-07] VITALS: Ht 172.7 cm; Wt 97.0 kg
[~2016-11-07 21:50] MED LIST: AMIO200T PO; AMLO5TAB2 PO; ASPI-973 PO; CREST10T PO; Furosemide 10 mg/mL 4 mL Inj IVPUSH ONE; ISOS30TA4 PO; METF500T4 PO; METO25TA6 PO; MULT1CAP33 PO; NITR0.4T SL; OMEG-38 PO
[2016-11-07 21:59] VITALS: BP 219/91; PULSE 93; RESP 33; O2SAT 91
--- NOTE | 2016-11-07 22:02 | ED.REPORT ---
HPI-Dyspnea / Wheezing Date of Service Nov 07, 2016 ED Provider: Nursing Notes Stated Complaint: SOB Allergies: Coded Allergies: No Known Allergies (Unverified Allergy, Unknown, 07/31/14) Scheduled Amiodarone (Amiodarone) 200 Mg Tablet 400 MG PO DAILY Take 2 tablets by mouth once daily for 6 days and then take 1 tablet by mouth once daily there after Amlodipine (Amlodipine) 5 Mg Tablet 5 MG PO QAM Aspirin (Aspirin) 81 Mg Tablet 81 MG PO HS Isosorbide MN ER (Isosorbide MN ER) 30 Mg Tab.er.24h 30 MG PO DAILY Metformin (Metformin) 500 Mg Tablet 250 MG PO BID Metoprolol Tartrate (Metoprolol Tartrate) 25 Mg Tablet 25 MG PO BID Multivitamin (Multivitamins) 1 Each Capsule 1 EACH PO DAILY [place]-3/Dha/Epa/Fish Oil (Fish Oil 1,000 mg Softgel) 1 Each Capsule 1 EACH PO DAILY Rosuvastatin Calcium (Crestor) 10 Mg Tablet 40 MG PO DAILY Scheduled PRN Nitroglycerin SL (Nitrostat) 0.4 Mg Tab.subl 0.4 MG SL Q5MIN PRN PRN For Chest Pain IF SBP > 90 General Time Seen by MD: 22:02 Past Medical History Past Medical History Reports: Diabetes mellitus, Hyperlipidemia, Hypertension Past Surgical History denies Smoking History Light Tobacco Smoker Social History Drug Use: Denies drug use Ambulatory Status Independent Discharge & Departure Referrals: Ramirez Shane MD (PCP) Lamonte Najera MD Nov 07, 2016 22:02
[2016-11-07 22:07] LABS: Mean Corpuscular Hemoglobin 30.7 pg (27.0-35.0); Mean Corpuscular Volume 88.5 fL (81-100); Platelet Count 313 bil/L (150-400)
[2016-11-07 22:08] LABS: BASOPHILS % (AUTO) 0.3 % (0-3); EOSINOPHILS % (AUTO) 1.6 % (0-5); MONOCYTES % (AUTO) 9.7 % (4-12); NEUTROPHILS % (AUTO) 70.5 % (40-74)
--- NOTE | 2016-11-07 22:08 | ED.REPORT ---
HPI-Dyspnea / Wheezing Date of Service Nov 07, 2016 ED Provider: Luigi Acevedo MD The patient is an 81 year old male with a medical history including DM, hypertension, CKD stage III, and CAD s/p recent pacemaker placement who presents to the ED via EMS with shortness of breath onset this evening. The patient also report diaphoresis. He denies other symptoms. EMS found the patient with a BP of 216/94, a pulse of 90, and a pulse ox of 80% on RA. The patient was recently admitted to the hospital on 10/15/16 for a one week stay with ventricular tachycardia, syncope, and acute hypoxic respiratory failure. He had an implantable cardioverter defibrillator insertion during that stay. Nursing Notes Stated Complaint: SOB Nursing Notes Reviewed: Yes Allergies: Coded Allergies: No Known Allergies (Unverified Allergy, Unknown, 07/31/14) Scheduled Amiodarone (Amiodarone) 200 Mg Tablet 400 MG PO DAILY Take 2 tablets by mouth once daily for 6 days and then take 1 tablet by mouth once daily there after Amlodipine (Amlodipine) 5 Mg Tablet 5 MG PO QAM Aspirin (Aspirin) 81 Mg Tablet 81 MG PO HS Isosorbide MN ER (Isosorbide MN ER) 30 Mg Tab.er.24h 30 MG PO DAILY Metformin (Metformin) 500 Mg Tablet 250 MG PO BID Metoprolol Tartrate (Metoprolol Tartrate) 25 Mg Tablet 25 MG PO BID Multivitamin (Multivitamins) 1 Each Capsule 1 EACH PO DAILY [place]-3/Dha/Epa/Fish Oil (Fish Oil 1,000 mg Softgel) 1 Each Capsule 1 EACH PO DAILY Rosuvastatin Calcium (Crestor) 10 Mg Tablet 40 MG PO DAILY Scheduled PRN Nitroglycerin SL (Nitrostat) 0.4 Mg Tab.subl 0.4 MG SL Q5MIN PRN PRN For Chest Pain IF SBP > 90 General Time Seen by MD: 22:04 Chief Complaint Shortness of breath Hx Obtained From: Patient Arrived By: Ambulance Sudden in Onset?: No Onset Occurred: 1 - 4 hours ago Symptom Duration: Since onset Location: : None Severity: Current: No pain currently Severity: Maximum: No pain Pertinent Negative: Relieved by nothing Context Related History: Reports: Coronary artery disease Recent Healthcare: Recent doctor visit, Recent hospitalization Past Medical History Past Medical History Diabetes mellitus Hyperlipidemia Hypertension CKD stage III CAD EVON Reports: Diabetes mellitus, Hyperlipidemia, Hypertension Past Surgical History Carotid endarterectomy on right 1997 Pacemaker placement 09/2016 Smoking History Light Tobacco Smoker Social History Drug Use: Denies drug use Other Social History: Ambulatory Status Independent Review of Systems Constitutional: Denies: Fever Respiratory: Reports: Shortness of breath, Denies: Non-productive cough Skin: Reports Diaphoresis Complete sys rev & neg: except as marked. GI: Denies: Diarrhea, Vomiting Physical Exam Initial Vital Signs Vital Signs (First) Date Time Temp Pulse Resp B/P Pulse Ox O2 Delivery O2 Flow Rate FiO2 11/07/16 21:59 93 33 219/91 91 Non-Rebreather 11/07/16 22:10 35.4 11/07/16 22:37 7 Initial VS: Reviewed Head / Eyes: Atraumatic, Normocephalic ENT: Conjunctiva normal, No scleral icterus Skin: Warm, Dry, No cyanosis Neurologic: Alert, Oriented, Nonfocal Psychiatric: Mood/affect normal, Behavior normal, Normal thought content General/Constitutional: Awake, Alert Neck: Supple, Full range of motion Respiratory / Chest: No chest tenderness Resp Distress / Stridor: Positive: Resp distress moderate Diminished Breath Sounds: Positive: Decreased R Wheezing / Retractions: Positive: Wheezing expiratory Rales bilateral bases up to 1/2 Healing left upper chest pacemaker site Cardiovascular: Heart rate NL, Regular rhythm, Heart sounds NL Lower Ext Edema: Positive: Left 1+, Pitting, Right 2+ Abdomen: Atraumatic Tenderness/Guarding/Rebound: Positive: Tender diffuse (Without localization) Bowel Sounds / Distention: Positive: Distention moderate Tympanitic to percussion Interpretation & Diagnostics Lab Results Interpretation Result Diagram: 11/07/16214911/07/162149 Test 11/07/16 21:50 11/07/16 22:09 11/07/16 22:49 White Blood Count 18.2th/mm3 (3.8-10.1) Red Blood Count 4.79mil/mm3 (4.40-5.80) Hemoglobin 14.7g/dL (13.8-17.2) Hematocrit 42.4% (41.0-50.0) Mean Corpuscular Volume 88.5fL (81-100) Mean Corpuscular Hemoglobin 30.7pg (27.0-35.0) Mean Corpuscular Hemoglobin Concent 34.7% (32.0-37.0) Red Cell Distribution Width 13.0% (12.3-15.4) Platelet Count 313bil/L (150-400) Neutrophils (%) (Auto) 70.5% (40-74) Lymphocytes (%) (Auto) 17.6% (14-46) Monocytes (%) (Auto) 9.7% (4-12) Eosinophils (%) (Auto) 1.6% (0-5) Basophils (%) (Auto) 0.3% (0-3) Band Neutrophils % 0% (1-5) D-Dimer 0.76mg/L FEU (<0.50) Estimat Glomerular Filtration Rate 46mL/min (>59) Magnesium Level 2.1mg/dL (1.6-2.6) Total Bilirubin 0.3mg/dL (0.0-1.2) Aspartate Amino Transf (AST/SGOT) 21U/L (0-50) Alanine Aminotransferase (ALT/SGPT) 26U/L (0-44) Alkaline Phosphatase 80U/L (25-160) Troponin T 0.010ug/L (0.0-0.011) Pro-B-Type Natriuretic Peptide 553.3pg/mL (0-486) Total Protein 8.5g/dL (6.4-8.4) Thyroid Stimulating Hormone (TSH) 3.470uIU/mL (0.450-4.500) Urine Color Straw (YELLOW) Urine Appearance Clear (CLEAR,HAZY) Urine pH 7.5 (5.0-8.0) Urine Specific [place] 1.015 (1.003-1.035) Urine Protein >300mg/dL (NEG,TRACE) Urine Glucose (UA) 100mg/dL (NEGATIVE) Urine Ketones Negativemg/dL (NEGATIVE) Urine Occult Blood Trace (NEGATIVE) Urine Nitrite Negative (NEGATIVE) Urine Bilirubin Negative (NEGATIVE) Urine Urobilinogen Normalmg/dL (NORMAL) Urine Leukocyte Esterase Negative (NEGATIVE) Urine RBC 0-2/hpf (0-2) Urine WBC 0-5/hpf (0-5) Urine Epithelial Cells Occasional/hpf (NONE-MOD) Urine Crystals None seen (NONE SEEN) Urine Bacteria Few/hpf (NONE-FEW) Urine Hyaline Casts None/lpf (NONE) Urine Granular Casts None seen (NONE SEEN) Urine Waxy Casts None seen (NONE SEEN) Urine Red Blood Cell Casts None seen (NONE SEEN) Urine White Blood Cell Casts None seen (NONE SEEN) Urine Mucus None seen (None Seen) Urine Trichomonas None seen (NONE SEEN) Urine Yeast None (NONE SEEN) Urinalysis Comment None Urine Culture Reflexed Not indicated Lactic Acid Level 1.3mmol/L (0.4-2.0) Lab Results Interpretation: Elevated white count, elevated BUN/creatinine, elevated nonfasting glucose. Troponin is negative. D-dimer is elevated ECG Interpretation ECG Interpretation: Sinus rhythm rate 93 Prolonged OK interval IVCD, consider atypical LBBB Time: 22:00 Interpreted by: ED physician X-Ray Chest Interpretation Chest Xray Interpretation: Diffuse alveolar pattern on right side with right lower lobe field infiltrate and probable effusion Left lower lobe infiltrate and probable effusion View: Portable, 1 view Interpretation / Wet Read by: Wet read ED physician CT Chest Interpretation IMPRESSION: No evidence for PE. Small right pleural effusion. Bilateral smooth septal thickening with bilateral peribronchial thickening and groundglass densities, edema is favored. Report transmitted to the ED by radiologist Candido Henriquez M.D. at 11/07/16 - 11:14:06 PM PDT Study type: CT pulm angiogram Interpretation / Wet Read by: Interpret - Radiologist CT Abd / Pelvis Interpretation IMPRESSION: No CT findings to explain the patient's clinical symptoms. Report transmitted to the ED by radiologist Candido Henriquez M.D. at 11/07/2016 - 11:19:27 PM PDT Study type: Abdominal CT IV contrast Interpretation / Wet Read by: Interpret - Radiologist Re-Eval/Medical Decision Med Decision/Clinical Course 81-year-old male who presents with respiratory distress. He just recently had a pacemaker put in. He was found to be fluid overloaded with evidence of CHF. Additionally he has elevated white blood count and I cannot rule out a pneumonia in the right base so he was placed on pneumonia antibiotics. Also because of his respiratory symptoms and his next lower extremity swelling, a DVT study was done which was negative. She will be admitted to the hospital service. Please see inpatient chart for details. Source of Hx: Old records Re-Evaluation/Progress #1: Time of Eval: 22:26 Patient Status: Condition improved Re-Evaluation/Progress Note: Patient rechecked. Discussed patient's case with his . Re-Evaluation/Progress #2: Time of Eval: 23:28 Patient Status: Condition improved Re-Evaluation/Progress Note: Discussed with patient x-ray, CT, and lab results, diagnosis, and plan for admit. Patient agrees with plan for care and all questions were addressed. 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: Agrees with eval, Agrees with plan, Accepts admit Counseled Regarding: Diagnosis, Lab results, Need for admission Discharge & Departure Impression: Primary Impression: Acute exacerbation of congestive heart failure Congestive heart failure type: unspecified congestive heart failure type Qualified Code: I50.9 - Heart failure, unspecified Additional Impression: Pleural effusion Disposition: ADMITTED TO HOSPITAL Discharge Condition All VS Reviewed: Yes Condition: Improved Referrals: Ramirez Shane MD (PCP) Crit Care Except Billable Proc Time Spent: 30-74 minutes (40) Services Performed: Patient management by me, Time spent at bedside, Reviewing test results, Reviewing imaging, Discussing patient care, Documentation in record, Time with fam/surrogate Scribe Attestation Portions of this note were transcribed by Nancy Frances. IDr. Acevedo, personally performed the history, physical exam, and medical decision-making; I reviewed and confirmed the accuracy of the information in the transcribed note. Signed by: Nishant Espinoza, 11/08/2016, 01:20 copies to: Ramirez Shane MD, Howard L MD Nov 07, 2016 22:08 NANCY FRANCES Nov 07, 2016 22:11 Counseled Regarding: Diagnosis, Lab results, Need for admission Discharge & Departure Impression: Primary Impression: Acute exacerbation of congestive heart failure Congestive heart failure type: unspecified congestive heart failure type Qualified Code: I50.9 - Heart failure, unspecified Additional Impression: Pleural effusion Disposition: ADMITTED TO HOSPITAL Discharge Condition All VS Reviewed: Yes Condition: Improved Referrals: Ramirez Shane MD (PCP) Crit Care Except Billable Proc Time Spent: 30-74 minutes (40) Services Performed: Patient management by me, Time spent at bedside, Reviewing test results, Reviewing imaging, Discussing patient care, Documentation in record, Time with fam/surrogate Scribe Attestation Portions of this note were transcribed by Nancy Frances. I, Dr. Acevedo, personally performed the history, physical exam, and medical decision-making; I reviewed and confirmed the accuracy of the information in the transcribed note. Signed by: Nishant Espinoza, 11/08/2016, 01:20 copies to: Ramirez Shane MD, Howard L MD Nov 07, 2016 22:08 NANCY FRANCES Nov 07, 2016 22:11
[2016-11-07 22:10] VITALS: BP 226/87; PULSE 91; RESP 32; O2SAT 93
[2016-11-07] MEDS ORDERED: Furosemide 10 mg/mL 4 mL Inj ONE (22:17)
[2016-11-07] MEDS ORDERED: Albuterol 2.5 mg/3 mL Inhalation Solution NEB ONE (22:20)
[2016-11-07] MEDS ORDERED: Vancomycin Dose per Pharmacist XX ONE (22:20)
[2016-11-07] MEDS ORDERED: Albuterol-Ipratropium 3 mL Inhalation Solution NEB ONE (22:20)
[2016-11-07] MEDS ORDERED: Piperacillin-Tazo 3.375 Gm Inj 3.375 GM in Dextrose 5% Minibag Plus 50 ML IV ONE (22:20)
[2016-11-07] MEDS ORDERED: levoFLOXacin Inj 750 MG in IV Premix 1 EACH IV ONE (22:20)
[2016-11-07 22:25] LABS: APPEARANCE,URINE CLEAR (CLEAR,HAZY); COLOR,URINE STRAW (YELLOW); OCCULT BLOOD,URINE TRACE (NEGATIVE); PH,URINE 7.5 (5.0-8.0); UROBILINOGEN,URINE NORMAL (NORMAL)
[2016-11-07] MEDS ORDERED: Vancomycin Inj 2,000 MG in 0.9% Sodium Chloride 500 ML IV ONE (22:30)
[2016-11-07 22:31] LABS: TROPONIN T 0.01 ug/L (0.0-0.011)
[2016-11-07 22:37] VITALS: PULSE 95; RESP 24; O2SAT 90
[2016-11-07 22:48] VITALS: BP 216/92; PULSE 86; RESP 25; O2SAT 90
[2016-11-07 23:14] VITALS: BP 198/76; PULSE 92; RESP 27; O2SAT 93
[2016-11-08] VITALS (15 sets, daily range): BP systolic 140–194; BP diastolic 62–93; PULSE 71–98; RESP 18–24; O2SAT 92–97
[2016-11-08] MEDS ORDERED: Ondansetron 2 mg/mL 2 mL Inj IVPUSH PRN (00:30)
[2016-11-08] MEDS ORDERED: Alum-Mag Hydrox-Simeth 30 mL Suspension PO PRN (00:30)
[2016-11-08] MEDS ORDERED: Polyethylene Glycol (PEG) 17 Gm Powder PO PRN (00:30)
[2016-11-08] MEDS ORDERED: Senna-Docusate 8.6-50 mg Tablet PO PRN (00:30)
--- NOTE | 2016-11-08 00:39 | PCM.HPMED ---
Subjective Date of Service Nov 08, 2016 Primary Provider: Admitting Physician: Safia Medley DO Primary Care Physician: Ramirez Shane MD Attending Physician: Safia Medley DO Admit Status: From the Emergency Department Chief Complaint: Shortness of breath History of Present Illness: 81-year-old man with past medical history remarkable for ventricular tachycardia , coronary artery disease, systolic congestive heart failure presents with 4 hours of shortness of breath with associated diaphoresis. The patient states that approximately 8 PM on November 07 he became short of breath and kind of cold and clammy sweat. The patient states that he has had a runny nose recently but denies any fever or chills, or cough. The patient states that last Tuesday he was in his PCP Dr. Shane's office were he was told that he had increased leg swelling however he denies increased weight gain recently. The patient denies orthopnea at this time. 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 The patient was hospitalized last month for AICD placement for ventricular tachycardia were not echo was performed and it was noted to have an ejection fraction of 40%. Review of Systems: A comprehensive review of systems was obtained and all negative except for what is included in the history of present illness. Allergies Coded Allergies: No Known Allergies (Unverified Allergy, Unknown, 07/31/14) Home Medications Amiodarone 400 MG PO DAILY Take 2 tablets by mouth once daily for 6 days and then take 1 tablet by mouth once daily there after Amlodipine 5 MG PO QAM Aspirin 81 MG PO HS Isosorbide MN ER 30 MG PO DAILY Metformin 250 MG PO BID Metoprolol Tartrate 25 MG PO BID Multivitamin 1 EACH PO DAILY [place]-3/Dha/Epa/Fish Oil 1 EACH PO DAILY Rosuvastatin Calcium 40 MG PO DAILY Nitroglycerin SL 0.4 MG SL Q5MIN PRN PRN For Chest Pain IF SBP > 90 PMH Ventricular tachycardia Syncope Acute hypoxic respiratory failure Coronary artery disease Acute on chronic systolic congestive heart failure Essential hypertension Obstructive sleep apnea Peripheral artery disease Aortic stenosis and mitral regurgitation, moderate Chronic kidney disease stage III Diabetes mellitus type II [id number] Hyperlipidemia Surgical History Carotid endarterectomy on right 1996 AICD placement 09/2016 Family History Family history of hypertension, heart disease Father with CAD Mother with hypertension and renal disease Sister with alcoholism Social History Occupation: retired Hx Alcohol Use: Yes (occasional) Hx Substance Use: No Hx Tobacco Use: Yes Smoking Status: Former Smoker (quit 3 weeks ago however smoked 2 cigars daily for years) Living Arrangement: with Family Exam Vital Signs Vital Sign - Last Date Time Temp Pulse Resp B/P Pulse Ox O2 Delivery O2 Flow Rate FiO2 11/08/16 00:10 87 20 171/93 93 Simple Mask 5 11/07/16 22:10 35.4 Intake and Output 11/07/16 11/07/16 11/08/16 Cumulative From/Thru 15:00 23:00 07:00 11/07/16 22:10 - 11/08/16 00:02 Intake Total 700 ml 700 ml Output Total 1000 ml 1200 ml 2200 ml Balance -1000 ml -500 ml -1500 ml Intake IV Total 700 ml 700 ml Output Urine Total 1000 ml 1200 ml 2200 ml # Voids 2 4 6 Exam General: Elderly male appearing approximately stated age in no acute distress, well-developed, well-nourished, appropriately interactive and cooperative Eyes: Pupils equal round reactive to light, extraocular motion intact, anicteric sclera, noninjected conjunctiva HENT: Normocephalic atraumatic, oropharynx clear moist mucous membranes without central cyanosis Neck: Supple with full range of motion. Trachea midline with no JVD, however difficult to assess due to thick neck Cardiovascular: Regular rate and rhythm, systolic ejection murmur grade II/ noted at right upper sternal border and apex with no rubs or gallops appreciated. Pulses equal upper extremity. Decreased but palpable right dorsalis pedis pulse. Pulmonary: Coarse breath sounds noted in the right lower, middle and axillary lung montiel without wheezing or rhonchi. Normal respiratory effort with no use of accessory muscles. GI: Bowel tones present. Soft, nontender, nondistended. Extremities: 2+ moderate pitting edema noted in the legs bilaterally worse on the left than in the right, No clubbing, cyanosis Skin: Warm and dry, no rash, ulcers Neurological: Alert, oriented, no focal neurologic deficits noted Psychiatric: Normal mood and affect. Lab and Diagnostics Result Diagram: 11/07/16214911/07/162149 X-Rays, CTs and MRIs CT PE protocol No pulmonary embolus, small right pleural effusion and bilateral smooth septal thickening and groundglass opacities bilaterally right worse than left, [facility] read favors edema Chest x-ray Bilateral pleural effusions right worse than left, cannot rule out pneumonia Cardiac Echo Impressions Previously performed Echocardiogram Report from 10/14/2016 Interpretation Summary 1) Mildly enlarged left ventricle with mildly to moderate reduced systolic function (EF about 40%). 2) Basal inferior wall and basal to mid inferolateral wall are akinetic. 3) Normal right ventricular size and function. 4) Moderate aortic stenosis present (valve area 1.1cm2, mean gradient 14.6mmHg, severity ratio 0.30). 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 6) Compared to the Echo done 03/26/2016, aortic stenosis has progressed from mild to moderate range and LV is dilated on today's study. Reading Physician:10: 29 AM Assessment & Plan Patient is an 80 year old male with a history of hypertension, hyperlipidemia, diabetes mellitus, and tobacco dependence presented to emergency department via emergency medical services following due to shortness of breath Acute hypoxic respiratory failure - Initial vitals shown in ED report oxygen saturation of 91% on nonrebreather unknown volume per minute - Likely secondary to volume overload from acute exacerbation of CHF described below - Patient does not use oxygen at home. - Continued CPAP at night Acute on chronic systolic congestive heart failure - Patient has an Echocardiogram from 10/16/2016 showed ejection fraction of 40% (reviewed on admission) - CXR consistent with CHF, reviewed on admission - Continued statin, aspirin, and beta lenny - Patient received Lasix 40 mg IV in the emergency department - Given the patient's elevated creatinine and recent contrast study no more Lasix to be given tonight, this will be held until the a.m. when repeat blood work to check kidney function is performed - Limited echo ordered for the a.m. - Patient educated that he must watch his weight regularly and will be referred to the CHF clinic Hypertensive urgency - Patient's blood pressure at admission was repeatedly in the 200s SYSTOLIC, this seemed to improved after Lasix down to the 170s with expected improvement with continued Lasix therapy - Initial labs spell to reveal any significant end organ damage at this time - Continued home amlodipine 5 mg once daily - Metoprolol tartrate 25 mg twice per day - Isosorbide mononitrate ER 30 mg once daily Chronic kidney disease stage III, present on admission, stable. - BUN appears approximately at baseline and creatinine of 1.55 near baseline - The patient received a contrast study for PE, as well as Zosyn and vancomycin combination in the emergency department increasing risk for acute kidney injury and contrast-induced nephropathy - Must avoid rapid overdiuresis given antibiotic combination and contrast study and Lasix lashon - Monitor Acute leukocytosis - WBC count 18,200 at admission - Patient was SIRS positive with white blood cell count 18.2, temperature 35.4, respiratory rate 32, heart rate 91 - Initial CT read by [facility] favors pulmonary edema over possible pneumonia - UA fails to reveal urinary tract infection, CT abdomen and pelvis has no acute findings on [facility] read - Procalcitonin ordered and pending - Patient does not appear acutely infectious however given chest x-ray and CT findings cannot definitively rule out a possible underlying pneumonia at this time - Patient received Zosyn, vancomycin, and Levaquin in the emergency department double covering the patient for gram positives, gram negatives and atypicals - Discontinue vancomycin and Zosyn combination at this point in time given increased risk of acute kidney injury in CKD patient given concomitant contrast study - We will consider continuing antibiotics depending on Procalcitonin History of Ventricular tachycardia present on admission - Implantable cardioverter defibrillator placed on 10/19/16 for secondary prevention. - Continue outpatient amiodarone 400 mg twice per day - Patient is under the impression that he has an AICD pacemaker placed, they team may reiterate he does not have a pacemaker just the AICD Chronic Coronary artery disease - Recent coronary catheterization revealed two-vessel disease (occluded mid circumflex with left to right collaterals and right to left collaterals; as well as intact LAD (left anterior descending) distribution; and occluded proximal RCA with [id number] collaterals to the distal RCA (right coronary artery) into an RV (right ventricle) branch) but no critical stenoses. -Continue rosuvastatin 40 mg daily due to less interaction with amiodarone -Continue metoprolol tartrate 25 mg twice per day and continued aspirin. Chronic Obstructive sleep apnea - Continue CPAP Chronic Aortic stenosis and mitral regurgitation, moderate - Will need continued monitoring as an outpatient - Follow up with cardiology as above Diabetes mellitus type II, present on admission, stable. Most recent A1c at 7.0 in Sep, 2016 - Metformin held during hospitalization and was given low dose correctional scale Lispro Hyperlipidemia, present on admission, stable. - Continue rosuvastatin 40 mg daily DVT prophylaxis: Heparin 5000 units 3 times a day GI prophylaxis: Not indicated at this time CODE STATUS: Full The patient is admitted to inpatient status with expected length of stay greater than to midnights given the presenting symptoms, the likely diagnoses, but required treatments, at the possible complications. Pain Evaluation: Adequate Pain Control GI Prophylaxis: Not indicated VTE Prophylaxis Indicated: Meets Criteria for Anticoag Therapy VTE Prophylaxis: Sub-Q Heparin (Unfractionated), SCDs VTE Mechanical Devices: Intermittant Pneumatic CD Resuscitation Status: CPR: Attempt Resuscitation Attending Statement The patient was seen and examined together with house staff on 11/08/2016 and I agree with the history, exam and plan as outlined in the note above. Kiko Gaston DO Nov 08, 2016 00:39 Safia Medley DO Nov 08, 2016 05:45
[2016-11-08] MEDS ORDERED: Albuterol 1.25 mg/3 mL Inhalation Solution NEB PRN (01:55)
[2016-11-08] MEDS ORDERED: Glucose 40% Oral Gel 15 Gm Tube PO PRN (02:00)
--- NOTE | 2016-11-08 02:05 | NUR ---
Admit/O2/Home CPAP Patient admitted to [facility] 2027 at 0045. Patient placed on telemetry, oxygen delivery via oxymask at 4L on arrival. Placed on continuous pulse ox; SpO2 89%. Increased O2 to 6L; SpO2 improved to 91%. Patient brought his home CPAP; message left for RT to assist patient with set up. Med rec and admit documentation completed.
[2016-11-08] MEDS: Sodium Chloride LOK Flush 10 mL Syringe IVFLUSH SCH ×4 (02:22→23:33)
--- NOTE | 2016-11-08 02:26 | NUR ---
CPAP Patient's home CPAP set up by RT with 7L O2 bleed in. Patient maintaining SpO2 93-95%.
[2016-11-08] MEDS ORDERED: Dextrose 10% 250 ML IV PRN (02:30)
[2016-11-08 04:09] LABS: Phosphorus 4.2 mg/dL (2.5-4.9)
--- NOTE | 2016-11-08 07:53 | DRSVH ---
PROCEDURE: CT ANGIO CHEST PULMONARY EMBOLISM ([id number]) INDICATIONS: Dyspnea, infiltrate, elev dimer, LE edema TECHNIQUE: After the administration of intravenous contrast, 2 mm thick sections acquired from the pulmonary api nicolas to the posterior costophrenic angles. 3-dimensional maximum intensity projection (MIP) coronal a nd sagittal reformats were then acquired through the thorax. For radiation dose reduction, the follo wing was used: automated exposure control, adjustment of mA and/or kV according to patient size. COMPARISON: [facility], CR, XR CHEST 2VW, 10/20/2016, 6:32. [facility], CR, XR CHEST 1VW (PORTABLE), 11/07/2016, 21:55. FINDINGS: Image quality: Excellent. Pulmonary arteries: Pulmonary arteries are normal in size, and demonstrate no intraluminal filling d efects to suggest central pulmonary embolism. Lungs and pleura: There are bilateral groundglass infiltrates, right greater than left. Nodular densi ties are present in the right upper lobe and bilateral lower lobes. There is septal thickening. A sma ll right pleural effusion is present. No pneumothorax. Central and peripheral airways are patent. Mediastinum: Heart size is normal, without pericardial effusion. Coronary artery calcification cons istent with atherosclerosis. A cardiac pacemaker is present. No mediastinal or hilar adenopathy. Tho racic aorta is normal in caliber and enhancement. Esophagus is normal in caliber. There is a tiny hi atal hernia. Bones and chest wall: No suspicious bony lesions. Ribs and thoracic spine appear intact throughout. Thyroid gland is normal. No axillary or supraclavicular adenopathy. Abdomen: Visualized upper abdominal solid organs appear normal in the early arterial phase of enhanc ement. IMPRESSION: 1. No evidence for central pulmonary embolism. 2. Bilateral groundglass infiltrates and septal thickening suggesting pulmonary edema. 3. There are nodular densities in lungs bilaterally. Superimposed infectious process including atypic al pneumonia cannot be excluded. 4. Small right pleural effusion. No significant discrepancy with the night custodian radiology preliminary report. Dictated by: Carlos Gallardo M.D. on 11/08/2016 at 7:44 Approved by: Carlos Gallardo M.D. on 11/08/2016 at 7:51
[2016-11-08] MEDS: Insulin LISPRO 300 Unit/3 mL Inj SUBQ SCH ×4 (08:00→21:19)
--- NOTE | 2016-11-08 08:01 | DRSVH ---
PROCEDURE: CT ABDOMEN AND PELVIS WITH CONTRAST ([id number]) INDICATIONS: 81-year-old male with pain and distention, elevated WBC. TECHNIQUE: After the administration of intravenous contrast, 5 mm thick sections acquired from the diaphragm to the symphysis. 5 mm coronal and sagittal reformats were acquired. For radiation dose reduction, the following was used: automated exposure control, adjustment of mA and/or kV according to patient april [place]. COMPARISON: [facility], CT, CT ANGIO CHEST PE, 11/07/2016, 22:59. FINDINGS: Image quality: Excellent. ABDOMEN: Lung bases: Right basilar infiltrate and bilateral lower lobe groundglass densities. Small right pleu ral effusion. Heart size is normal. Tiny hiatal hernia. Solid organs: Liver and spleen are normal in size and enhancement. Gallbladder is normal. Biliary system is non dilated. Pancreas enhances normally. No adrenal nodules. Kidneys demonstrate normal size and enhancement, without hydronephrosis. Small calcific densities in the right kidney are heri tible with nonobstructive stones. There is mild perinephric stranding. Peritoneum and bowel: Bowel loops demonstrate normal wall thickness and caliber. There are scattere d colonic diverticula. No active diverticulitis. Normal appearance of appendix. No free fluid or air. Nodes and vessels: No retroperitoneal or mesenteric adenopathy by size criteria. Aorta and inferior vena cava are normal in size. Severe arterial calcification consistent with atherosclerosis. Miscellaneous: No ventral hernias. PELVIS: Genitourinary: Bladder wall thickness is normal. Prostate is prominent. Miscellaneous: No inguinal hernias or adenopathy. Bones: No suspicious bony lesions. No vertebral body compression fractures. IMPRESSION: 1. Right lower lobe infiltrate and small right effusion suspicious for pneumonia. 2. Small nonobstructive right renal calculi. Mild bilateral perinephric stranding. 3. Diverticulosis. No active diverticulitis. 4. Severe atherosclerosis. 5. Tiny hiatal hernia. 6. Enlarged prostate. Dictated by: Carlos Gallardo M.D. on 11/08/2016 at 7:51 Approved by: Carols Gallardo M.D. on 11/08/2016 at 7:59
[2016-11-08] MEDS: Isosorbide Mononitrate 30 mg ER24 Tablet PO SCH (08:26)
--- NOTE | 2016-11-08 09:15 | NUR ---
Social Work: Initial Assessment D: Per EMR review, pt is an 81 year old male admitted for acute CHF, Pleural Effusion, r/o pneumonia. Pt is [facility] with Medicare; pt has no LTC insurance or VA Benefits. PCP is Ramirez Shane MD. NOK is Ana M Maki, , . Advanced directives completed- information will be provided by pt's . NO RA Score entered END USER SUPPORT SPECIALIST met with pt at bedside. Sw role explained and contact info provided. See initial assessment. Pt lives at home in a single story home in [place] with his . Pt uses no DME and is I with ADLs at baseline. Pt does not drive, has never had HH or skilled rehab. Pt and anticipate pt to return home when medically stable; spouse will transport. A: Pt who is I at baseline. P: Anticipate pt to discharge home via POV; END USER SUPPORT SPECIALIST to continue to follow to assess for discharge needs. ABBY Bernal Addendum: 11/08/16 at 0956 by THUAN JACOBSON Amended: Links added.
--- NOTE | 2016-11-08 09:40 | DRSVH ---
PROCEDURE: X-RAY CHEST ONE VIEW, PORTABLE ([id number]) INDICATIONS: SHORTNESS OF BREATH TECHNIQUE: One view of the chest was acquired. COMPARISON: [facility], CT, CT ABD PELVIS W CON, 11/07/2016, 22:59. [facility], CT, CT ANGIO CHEST PE, 11/07/2016, 22:59. [facility], CR, XR CHEST 2VW, 10/20/2016, 6: 32. [facility], CR, XR CHEST 1VW (PORTABLE), 10/19/2016, 10:44. FINDINGS: Surgical changes and devices: Stable positioning of left chest AICD. Lungs and pleura: Diffuse, widespread bilateral pulmonary interstitial and bibasilar air space opaci ties are present. No definite pleural effusion or pneumothorax. Mediastinum: Mediastinal contours appear normal. Heart size is normal. Bones and chest wall: No suspicious bony lesions. Overlying soft tissues appear unremarkable. IMPRESSION: Pulmonary edema and/or bibasilar pneumonia. Continued radiographic surveillance to resolu tion is recommended. Dictated by: Edson Bustillos [facility] Interpreted: Carlos Gallardo MD on 11/08/2016 at 9:39 Transcribed by: LIZ on 11/08/2016 at 9:39 Approved by: Carlos Gallardo M.D. on 11/09/2016 at 8:10
[2016-11-08] MEDS ORDERED: Labetalol 5 mg/mL 4 mL Inj IVPUSH ONE (09:45)
--- NOTE | 2016-11-08 10:26 | NUR ---
High BP/Orthostatic BP Pt's vitals assessed prior to AM medication administration. Pt BP 188/79 lying down, 183/76 sitting, 196/78 standing. notified. Pt's morning BP meds administered. Upon reassessment Pt BP decreased to 165/77.
[2016-11-08] MEDS ORDERED: Albuterol-Ipratropium 3 mL Inhalation Solution NEB PRN (11:15)
--- NOTE | 2016-11-08 11:25 | PCM.PNMED ---
Subjective Date of Service Nov 08, 2016 Subjective Mr. Maki remains SOB, though improved compared to admission, he states that he is able to lie down more comfortably at this point than compared to presentation. He denies chest pain, abdominal, or pain with deep inspiration. He continues to desaturate with conversation. No significant overnight events. Comprehensive ROS negative except as listed above. Exam Vital Signs Vital Sign - Last Date Time Temp Pulse Resp B/P Pulse Ox O2 Delivery O2 Flow Rate FiO2 11/08/16 10:55 Supplement Oxygen CPAP/BIPAP 11/08/16 10:44 83 11/08/16 09:55 21 96 7.00 11/08/16 08:15 37.1 188/79 Intake and Output 11/07/16 11/07/16 11/08/16 Cumulative From/Thru 14:59 22:59 06:59 11/07/16 22:10 - 11/08/16 06:22 Intake Total 844 ml 844 ml Output Total 3125 ml 3125 ml Balance -2281 ml -2281 ml Intake Oral 0 ml 0 ml IV Total 844 ml 844 ml Output Urine Total 3125 ml 3125 ml # Voids 8 8 Exam Gen: A/O x3 pleasant cooperative gentleman in NAD Neck: Supple, Full ROS, cannot appreciate JVD HEENT: PERRL, EOMI, no scleral icterus, no conjunctival pallor CV: RRR, mixed systolic murmur with both crescendo decrescendo at R sternal border with concurrent holosystolic murmur at L sternal border, no rubs or gallops Resp: Upper airway ronchorous sounds, bibasilar crackles, no appreciate wheezing Chest: AICD palpable in left axilla Abd: Soft, non tender, no organomegaly, BS + 4Q Extr: mild to moderate BL LE non pitting edema, no cyanosis or clubbing Skin: Multiple comedones and actinic keratoses Neuro: CN 2-12 grossly intact, no focal neurologic deficit Psych: Pleasant and appropriate mood and affect. IVs and Medications IV Fluids 300 ml NS delivered with IV meds Medications Reviewed: Medications were reviewed in detail Lab and Diagnostics Item Value Date Time Red Blood Count 4.79 mil/mm3 11/07/162149 Mean Corpuscular Volume 88.5 fL 6/18/17 2150 Mean Corpuscular Hemoglobin 30.7 pg 11/07/162149 Mean Corpuscular Hemoglobin Concent 34.7 % 11/07/162149 Red Cell Distribution Width 13.0 % 11/07/162149 Neutrophils (%) (Auto) 70.5 % 11/07/162149 Lymphocytes (%) (Auto) 17.6 % 11/07/162149 Monocytes (%) (Auto) 9.7 % 11/07/162149 Eosinophils (%) (Auto) 1.6 % 11/07/162149 Basophils (%) (Auto) 0.3 % 11/07/162149 Band Neutrophils % 0 % L 11/07/162149 Calcium Level 8.6 mg/dL 11/08/16256 Phosphorus Level 4.2 mg/dL 11/08/16256 Troponin T 0.018 ug/L H 11/08/16825 Albumin 4.1 g/dL 11/08/16256 Triglycerides Level 91 mg/dL 11/08/16256 Cholesterol Level 125 mg/dL 11/08/16256 LDL Cholesterol, Calculated 53.800 mg/dL 11/08/16256 VLDL Cholesterol 18.200 mg/dL 11/08/16256 HDL Cholesterol 53 mg/dL 11/08/16256 Result Diagram: 11/07/16214911/08/16256 Microbiology Blood cultures pending Resp PCR pending Nasal MRSA pending X-Rays, CTs and MRIs X-RAY CHEST ONE VIEW, PORTABLE IMPRESSION: Pulmonary edema and/or bibasilar pneumonia. Continued radiographic surveillance to resolution is recommended. Dictated by: Edson Bustillos [facility] Interpreted: Carlos Gallardo MD on 11/08/2016 at 9:39 Transcribed by: LIZ on 11/08/2016 at 9:[address] ANGIO CHEST PULMONARY EMBOLISM IMPRESSION: 1. No evidence for central pulmonary embolism. 2. Bilateral groundglass infiltrates and septal thickening suggesting pulmonary edema. 3. There are nodular densities in lungs bilaterally. Superimposed infectious process including atypical pneumonia cannot be excluded. 4. Small right pleural effusion. No significant discrepancy with the weight shifter radiology preliminary report. Dictated by: Carlos Gallardo M.D. on 11/08/2016 at 7:44 Approved by: Carlos Gallardo M.D. on 11/08/2016 at 7:51 CT ABDOMEN AND PELVIS WITH CONTRAST IMPRESSION: 1. Right lower lobe infiltrate and small right effusion suspicious for pneumonia. 2. Small nonobstructive right renal calculi. Mild bilateral perinephric stranding. 3. Diverticulosis. No active diverticulitis. 4. Severe atherosclerosis. 5. Tiny hiatal hernia. 6. Enlarged prostate. Dictated by: Carlos Gallardo M.D. on 11/08/2016 at 7:51 Approved by: Carlos Gallardo M.D. on 11/08/2016 at 7:59 . 12-lead ECG Sinus rhythm rate 93 Prolonged NM interval IVCD, consider atypical LBBB Cardiac Echo Impressions Previously performed Echocardiogram Report from 10/14/2016 Interpretation Summary 1) Mildly enlarged left ventricle with mildly to moderate reduced systolic function (EF about 40%). 2) Basal inferior wall and basal to mid inferolateral wall are akinetic. 3) Normal right ventricular size and function. 4) Moderate aortic stenosis present (valve area 1.1cm2, mean gradient 14.6mmHg, severity ratio 0.30). 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 6) Compared to the Echo done 03/26/2016, aortic stenosis has progressed from mild to moderate range and LV is dilated on today's study. Reading Physician:10: 29 AM Assessment & Plan Patient is an 80 year old male with a history of hypertension, hyperlipidemia, diabetes mellitus, and tobacco dependence presented to emergency department via emergency medical services following due to shortness of breath. Currently being treated for CHF exacerbation likely secondary to pneumonia Acute hypoxic respiratory failure, POA. Active - Initial vitals shown in ED report oxygen saturation of 91% on nonrebreather unknown volume per minute - Patient desaturates rapidly with conversation - Likely secondary to volume overload from acute exacerbation of CHF described below - Patient does not use oxygen at home. - Continued CPAP at night - DuoNeb Q4 scheduled while awake Acute on chronic systolic congestive heart failure, POA. Active - Patient has an Echocardiogram from 10/16/2016 showed ejection fraction of 40% (reviewed on admission) - CXR consistent with CHF, reviewed on admission - Continued statin, aspirin, and beta lenny - Patient received Lasix 40 mg IV in the emergency department - Continued at 40 mg IV daily - Patient educated that he must watch his weight regularly and will be referred to the CHF clinic Hypertensive urgency, POA, acute. Active - Patient's blood pressure at admission was repeatedly in the 200s SYSTOLIC, this seemed to improved after Lasix down to the 170s with expected improvement with continued Lasix therapy - Initial labs fail to reveal any significant end organ damage at this time - Changed Amlodipine to Lisinopril to reduce edema and improve CHF profile - Metoprolol tartrate 25 mg twice per day - Isosorbide mononitrate ER 30 mg once daily Chronic kidney disease stage III, present on admission, stable. - BUN appears approximately at baseline and creatinine of 1.55 near baseline upon presentation - Mild upward trend overnight - The patient received a contrast study for PE, as well as Zosyn and vancomycin combination in the emergency department increasing risk for acute kidney injury and contrast-induced nephropathy - Must avoid rapid overdiuresis given antibiotic combination and contrast study and Lasix lashon - [facility] acquired pneumonia, POA, acute. Active - WBC count 18,200 at admission - Patient hospitalized from 10/16-10/22 - Patient was SIRS positive with white blood cell count 18.2, temperature 35.4, respiratory rate 32, heart rate 91 - CT with results as above - UA fails to reveal urinary tract infection, CT abdomen and pelvis has no acute findings on [facility] read - Procalcitonin elevated upon presentation - Patient received Zosyn, vancomycin, and Levaquin in the emergency department double covering the patient for gram positives, gram negatives and atypicals - Continued Zosyn added Azithromycin for expanded atypical coverage and anti- inflammatory properties History of Ventricular tachycardia, POA. Active - Implantable cardioverter defibrillator placed on 10/19/16 for secondary prevention. - Continue outpatient amiodarone 400 mg twice per day - AICD in place Chronic Coronary artery disease, POA. Active - Recent coronary catheterization revealed two-vessel disease (occluded mid circumflex with left to right collaterals and right to left collaterals; as well as intact LAD (left anterior descending) distribution; and occluded proximal RCA with [id number] collaterals to the distal RCA (right coronary artery) into an RV (right ventricle) branch) but no critical stenoses. -Continue rosuvastatin 40 mg daily due to less interaction with amiodarone -Continue metoprolol tartrate 25 mg twice per day and continued aspirin. Chronic Obstructive sleep apnea - Continue CPAP Chronic Aortic stenosis and mitral regurgitation, moderate - Will need continued monitoring as an outpatient - Follow up with cardiology as above - Attempt to avoid hypotension to maintain cardiac output Diabetes mellitus type II, present on admission, stable. Most recent A1c at 7.0 in Sep, 2016 - Metformin held during hospitalization and was given low dose correctional scale Lispro Hyperlipidemia, present on admission, stable. - Continue rosuvastatin 40 mg daily Disposition: Patient will likely require 2-3 more days of IV antibiotics and diuresis, anticipate discharge home pending PT evaluation Pain Evaluation: Adequate Pain Control GI Prophylaxis: Not indicated VTE Prophylaxis: Sub-Q Heparin (Unfractionated), SCDs VTE Mechanical Devices: Intermittant Pneumatic CD Resuscitation Status: CPR: Attempt Resuscitation Attending Statement The patient was seen and examined together with Dr. Malloy on 11/08/16 and I have added additional information to the note above. Eliezer Malloy DO Nov 08, 2016 11:25 Cinda Suárez DO Nov 08, 2016 17:30
[2016-11-08] MEDS ORDERED: 0.9% Sodium Chloride 250 ML ONE (12:27)
[2016-11-08] MEDS: Furosemide 10 mg/mL 4 mL Inj IVPUSH SCH (12:45)
[2016-11-08] MEDS: Azithromycin Inj 500 MG in Dextrose 5% w/Vial Mate 250 ML IV SCH (12:45)
[2016-11-08] MEDS: Albuterol-Ipratropium 3 mL Inhalation Solution NEB SCH ×3 (13:40→20:30)
[2016-11-08] MEDS: Piperacillin-Tazo 3.375 Gm Inj 3.375 GM in Dextrose 5% Minibag Plus 50 ML IV SCH ×2 (16:22→23:33)
--- NOTE | 2016-11-08 17:06 | NUR ---
P - Temp 38.4 I - MD notified, administered 650 PO Tylenol. E - Pt temp reassessed at 37.4 S - call light within reach, bed low and locked.
[2016-11-09] VITALS (12 sets, daily range): BP systolic 115–174; BP diastolic 59–67; PULSE 72–91; RESP 16–22; O2SAT 91–96
[2016-11-09 03:27] LABS: BASOPHILS % (AUTO) 0.2 % (0-3); EOSINOPHILS % (AUTO) 2.1 % (0-5); MONOCYTES % (AUTO) 7.5 % (4-12); Mean Corpuscular Volume 87.2 fL (81-100); NEUTROPHILS % (AUTO) 86.3 % (40-74); Platelet Count 212 bil/L (150-400)
[2016-11-09 03:43] LABS: INR 1.25 ratio
[2016-11-09] MEDS: Albuterol-Ipratropium 3 mL Inhalation Solution NEB SCH ×6 (04:30→22:48)
[2016-11-09 04:37] LABS: Magnesium 1.7 mg/dL (1.6-2.6); Phosphorus 4.9 mg/dL (2.5-4.9)
[2016-11-09 04:38] LABS: TROPONIN T 0.03 ug/L (0.0-0.011)
--- NOTE | 2016-11-09 05:39 | NUR ---
Respiratory Pt on 6L oxymask upon initial assessment and CPAP use per report was to be with 7L O2 bleed in; pt weaned to 4.5L oxymask prior to sleep, and given 6L bleed through CPAP at approx. 2200. Pt's SPO2 94% throughout shift, no acute dyspnea noted, pt reports feeling "significantly better". VSS, tele SR 90s with IVCD and AVBI. No pain. CHF booklet given to pt at bedside.
[2016-11-09] MEDS: Insulin LISPRO 300 Unit/3 mL Inj SUBQ SCH ×4 (08:00→20:55)
[2016-11-09] MEDS: Isosorbide Mononitrate 30 mg ER24 Tablet PO SCH (09:19)
[2016-11-09] MEDS: Furosemide 10 mg/mL 4 mL Inj IVPUSH SCH (09:23)
[2016-11-09] MEDS: Azithromycin Inj 500 MG in Dextrose 5% w/Vial Mate 250 ML IV SCH (09:32)
[2016-11-09] MEDS: Sodium Chloride LOK Flush 10 mL Syringe IVFLUSH SCH ×2 (11:14→16:36)
[2016-11-09] MEDS: Piperacillin-Tazo 3.375 Gm Inj 3.375 GM in Dextrose 5% Minibag Plus 50 ML IV SCH ×2 (11:14→16:36)
--- NOTE | 2016-11-09 14:30 | DRSVH ---
PROCEDURE: X-RAY CHEST ONE VIEW, PORTABLE ([id number]) INDICATIONS: CHF v pna TECHNIQUE: One view of the chest was acquired. COMPARISON: [facility], CT, CT ANGIO CHEST PE, 11/07/2016, 22:59. [facility] , CR, XR CHEST 1VW (PORTABLE), 11/07/2016, 21:55. FINDINGS: Surgical changes and devices: Stable positioning of left chest AICD. Lungs and pleura: Diffuse, widespread bilateral pulmonary interstitial and bibasilar air space opaci ties are present decreased from prior examination. No definite pleural effusion or pneumothorax. Mediastinum: Mediastinal contours appear normal. Heart size is normal. Bones and chest wall: No suspicious bony lesions. Overlying soft tissues appear unremarkable. IMPRESSION: Resolving edema and/or diffuse bilateral pneumonia. Continued radiographic surveillance t o resolution is recommended. Dictated by: Edson Bustillos [facility] Interpreted: Carolyn Mcclellan MD on 11/09/2016 at 8:41 Approved by: Carolyn Mcclellan MD, PhD on 11/09/2016 at 14:28
--- NOTE | 2016-11-09 14:46 | PCM.PNMED ---
Subjective Date of Service Nov 09, 2016 Subjective Patient states that he feels very much improved today, his breathing is less labored and he feels his appetite and energy returning. He has no specific complaints and denies chest pain, abdominal pain, diarrhea, or palpitations. No significant overnight events. Comprehensive ROS negative except as outlined above. Exam Vital Signs Vital Sign - Last Date Time Temp Pulse Resp B/P Pulse Ox O2 Delivery O2 Flow Rate FiO2 11/09/16 13:46 76 18 93 Nasal Cannula 3.00 11/09/16 12:03 37.1 130/63 Intake and Output 11/08/16 11/08/16 11/09/16 Cumulative From/Thru 15:00 23:00 07:00 11/07/16 22:10 - 11/09/16 06:23 Intake Total 1336 ml 436 ml 2616 ml Output Total 1100 ml 400 ml 4625 ml Balance 236 ml 36 ml -2009 ml Intake Oral 1033 ml 300 ml 1333 ml IV Total 303 ml 136 ml 1283 ml Output Urine Total 1100 ml 400 ml 4625 ml # Voids 2 10 Exam Gen: A/O x3 pleasant cooperative gentleman in NAD Neck: Supple, Full ROS, cannot appreciate JVD HEENT: PERRL, EOMI, no scleral icterus, no conjunctival pallor CV: RRR, mixed systolic murmur with both crescendo decrescendo at R sternal border with concurrent holosystolic murmur at L sternal border, no rubs or gallops Resp: Lungs CTA BL, no wheezing rales or rhonchi Chest: AICD palpable in left axilla Abd: Soft, non tender, no organomegaly, BS + 4Q Extr: mild BL LE non pitting edema improved since prior exam, no cyanosis or clubbing Skin: Multiple comedones and actinic keratoses Neuro: CN 2-12 grossly intact, no focal neurologic deficit Psych: Pleasant and appropriate mood and affect. IVs and Medications IV Fluids 300 ml NS delivered with IV medications Lab and Diagnostics Item Value Date Time Red Blood Count 4.13 mil/mm3 L 11/09/16 0305 Mean Corpuscular Volume 87.2 fL 11/09/16 0305 Mean Corpuscular Hemoglobin 30.0 pg 11/09/16 0305 Mean Corpuscular Hemoglobin Concent 34.4 % 11/09/16 0305 Red Cell Distribution Width 12.7 % 11/09/16 030 Neutrophils (%) (Auto) 86.3 % H 11/09/16 030 Lymphocytes (%) (Auto) 3.7 % L 11/09/16 030 Monocytes (%) (Auto) 7.5 % 11/09/16 030 Eosinophils (%) (Auto) 2.1 % 11/09/16 030 Basophils (%) (Auto) 0.2 % 11/09/16 030 Estimat Glomerular Filtration Rate 26 mL/min 11/09/16 030 Calcium Level 8.3 mg/dL L 11/09/16304 Phosphorus Level 4.9 mg/dL 11/09/16304 Magnesium Level 1.7 mg/dL 11/09/16 030 Total Bilirubin 0.6 mg/dL 11/09/16 030 Aspartate Amino Transf (AST/SGOT) 19 U/L 11/09/16 030 Alanine Aminotransferase (ALT/SGPT) 17 U/L 11/09/16 030 Alkaline Phosphatase 57 U/L 11/09/16 030 Troponin T 0.030 ug/L H 11/09/16 030 Pro-B-Type Natriuretic Peptide 3779 pg/mL H 11/09/16 030 Total Protein 6.0 g/dL L 11/09/16304 Albumin 3.7 g/dL 11/09/16 030 Procalcitonin 0.54 ng/mL H 11/09/16 030 Result Diagram: 11/09/16 03011/09/16304 Microbiology Blood cultures negative at 24 hr Resp PCR negative Nasal MRSA negative X-Rays, CTs and MRIs X-RAY CHEST ONE VIEW, PORTABLE IMPRESSION: Pulmonary edema and/or bibasilar pneumonia. Continued radiographic surveillance to resolution is recommended. Dictated by: Edson Bustillos RRA Interpreted: Carlos Gallardo MD on 11/08/2016 at 9:39 Transcribed by: LIZ on 11/08/2016 at 9:[address] ANGIO CHEST PULMONARY EMBOLISM IMPRESSION: 1. No evidence for central pulmonary embolism. 2. Bilateral groundglass infiltrates and septal thickening suggesting pulmonary edema. 3. There are nodular densities in lungs bilaterally. Superimposed infectious process including atypical pneumonia cannot be excluded. 4. Small right pleural effusion. No significant discrepancy with the rn night radiology preliminary report. Dictated by: Carlos Gallardo M.D. on 11/08/2016 at 7:44 Approved by: Carlos Gallardo M.D. on 11/08/2016 at 7:51 CT ABDOMEN AND PELVIS WITH CONTRAST IMPRESSION: 1. Right lower lobe infiltrate and small right effusion suspicious for pneumonia. 2. Small nonobstructive right renal calculi. Mild bilateral perinephric stranding. 3. Diverticulosis. No active diverticulitis. 4. Severe atherosclerosis. 5. Tiny hiatal hernia. 6. Enlarged prostate. Dictated by: Carlos Gallardo M.D. on 11/08/2016 at 7:51 Approved by: Carlos Gallardo M.D. on 11/08/2016 at 7:59 . 12-lead ECG Sinus rhythm rate 93 Prolonged MI interval IVCD, consider atypical LBBB Cardiac Echo Impressions Previously performed Echocardiogram Report from 10/14/2016 Interpretation Summary 1) Mildly enlarged left ventricle with mildly to moderate reduced systolic function (EF about 40%). 2) Basal inferior wall and basal to mid inferolateral wall are akinetic. 3) Normal right ventricular size and function. 4) Moderate aortic stenosis present (valve area 1.1cm2, mean gradient 14.6mmHg, severity ratio 0.30). 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 6) Compared to the Echo done 03/26/2016, aortic stenosis has progressed from mild to moderate range and LV is dilated on today's study. Reading Physician:10: 29 AM Assessment & Plan Patient is an 80 year old male with a history of hypertension, hyperlipidemia, diabetes mellitus, and tobacco dependence presented to emergency department via emergency medical services following due to shortness of breath. Currently being treated for CHF exacerbation likely secondary to pneumonia. Acute hypoxic respiratory failure, POA. improved - Initial vitals shown in ED report oxygen saturation of 91% on nonrebreather unknown volume per minute - Oxygenation much improved with diuresis and DuoNeb - Likely secondary to volume overload from acute exacerbation of CHF described below - Patient does not use oxygen at home. - Continued CPAP at night - DuoNeb Q4 scheduled while awake Acute on chronic systolic congestive heart failure, POA. Improved - Patient has an Echocardiogram from 10/16/2016 showed ejection fraction of 40% (reviewed on admission) - CXR consistent with CHF, reviewed on admission - Continued statin, aspirin, and beta lenny - Patient received Lasix 40 mg IV in the emergency department - Continued at 40 mg IV daily - Patient educated that he must watch his weight regularly and will be referred to the CHF clinic Hypertensive urgency, POA, acute. Improved - Patient's blood pressure at admission was repeatedly in the 200s SYSTOLIC, this seemed to improved after Lasix down to the 170s with expected improvement with continued Lasix therapy - Initial labs fail to reveal any significant end organ damage at this time - Changed Amlodipine to Lisinopril to reduce edema and improve CHF profile - Metoprolol tartrate 25 mg twice per day - Isosorbide mononitrate ER 30 mg once daily Chronic kidney disease stage III, present on admission, stable. - BUN appears approximately at baseline and creatinine of 1.55 near baseline upon presentation - Current upward trend likely secondary to diuresis, will continue to monitor and diurese gently - The patient received a contrast study for PE, as well as Zosyn and vancomycin combination in the emergency department increasing risk for acute kidney injury and contrast-induced nephropathy - Must avoid rapid overdiuresis given antibiotic combination and contrast study and Lasix lashon - Monitor Hospital acquired pneumonia, POA, acute. Active - WBC count 18,200 at admission - Patient hospitalized from 10/16-10/22 - Patient was SIRS positive with white blood cell count 18.2, temperature 35.4, respiratory rate 32, heart rate 91 - CT with results as above - UA fails to reveal urinary tract infection, CT abdomen and pelvis has no acute findings on [facility] read - Procalcitonin elevated upon presentation - Patient received Zosyn, vancomycin, and Levaquin in the emergency department double covering the patient for gram positives, gram negatives and atypicals - Continued Zosyn added Azithromycin for expanded atypical coverage and anti- inflammatory properties History of Ventricular tachycardia, POA. Active - Implantable cardioverter defibrillator placed on 10/19/16 for secondary prevention. - Continue outpatient amiodarone 400 mg twice per day - AICD in place Chronic Coronary artery disease, POA. Active - Recent coronary catheterization revealed two-vessel disease (occluded mid circumflex with left to right collaterals and right to left collaterals; as well as intact LAD (left anterior descending) distribution; and occluded proximal RCA with [id number] collaterals to the distal RCA (right coronary artery) into an RV (right ventricle) branch) but no critical stenoses. -Continue rosuvastatin 40 mg daily due to less interaction with amiodarone -Continue metoprolol tartrate 25 mg twice per day and continued aspirin. Chronic Obstructive sleep apnea - Continue CPAP Chronic Aortic stenosis and mitral regurgitation, moderate - Will need continued monitoring as an outpatient - Follow up with cardiology as above - Attempt to avoid hypotension to maintain cardiac output Diabetes mellitus type II, present on admission, stable. Most recent A1c at 7.0 in Sep, 2016 - Metformin held during hospitalization and was given low dose correctional scale Lispro Hyperlipidemia, present on admission, stable. - Continue rosuvastatin 40 mg daily Disposition: Patient will likely be able to DC tomorrow with needs to be determined by PT/OT and social work. Pain Evaluation: Adequate Pain Control GI Prophylaxis: Not indicated VTE Prophylaxis: Sub-Q Heparin (Unfractionated), SCDs VTE Mechanical Devices: Intermittant Pneumatic CD Resuscitation Status: CPR: Attempt Resuscitation Attending Statement The patient was seen and examined together with Dr. Malloy on 11/09/16 and I agree with the history, exam and plan as outlined in the note above. Eliezer Malloy DO Nov 09, 2016 14:46 Cinda Suárez DO Nov 10, 2016 12:50
--- NOTE | 2016-11-09 15:29 | PCM.PROC ---
Procedure Note Date of Service: Nov 09, 2016 Procedure: Procedure: Osteopathic Manipulative Treatment Subjective: The patient was seen and examined for decreased pulmonary mechanics. The patient has had a CHF exacerbation has needed to use oxygen. He states that he feels that his oxygen requirements are decreasing but does occasionally have some shortness of breath with movement. Risks and benefits of OMT were explained to the patient and verbal consent obtained. Osteopathic Structural Exam: Head: OAESrRl, OMS hypertonicity on the L Cervicals: C-5 ESrRl Thoracics: T9-12 NRrSl, outlet rotated right Abdomen: diaphragm restricted on the L>R Ribs: inhaled first rib on the L Pelvis: L posterior and R anterior innominate Sacrum: S2 on the L restricted Upper extremities: Latissimus dorsi hypertonicity on the L > R, upper trapezius on the L, L clavicle restriction Patient responded well to treatment. Patient states that he is feeling improved after treatment in his breathing is a little easier after treatment. The patient was seen later in the afternoon working with physical therapy and he was off oxygen and saturating well in the mid 90s. Osteopathic treatment modalities used: Myofascial release, Muscle Energy, Cranial, BLT, rib raising, and soft tissue technique Provider and [employer] Sweeper Operator: Dr. Suárez Student Dr Marco Antonio Perla Student Cinda Jeff DO Nov 09, 2016 15:29
[2016-11-10] VITALS (12 sets, daily range): BP systolic 123–163; BP diastolic 59–80; PULSE 74–91; RESP 16–24; O2SAT 92–96
[2016-11-10] MEDS: Piperacillin-Tazo 3.375 Gm Inj 3.375 GM in Dextrose 5% Minibag Plus 50 ML IV SCH (00:38)
[2016-11-10] MEDS: Sodium Chloride LOK Flush 10 mL Syringe IVFLUSH SCH ×4 (00:39→22:05)
[2016-11-10 03:50] LABS: EOSINOPHILS % (AUTO) 3.7 % (0-5); MONOCYTES % (AUTO) 7.5 % (4-12); Mean Corpuscular Hemoglobin 29.8 pg (27.0-35.0); Mean Corpuscular Volume 87.5 fL (81-100); Platelet Count 189 bil/L (150-400)
[2016-11-10 03:51] LABS: BASOPHILS % (AUTO) 0.2 % (0-3)
[2016-11-10 04:35] LABS: Phosphorus 6.1 mg/dL (2.5-4.9); TROPONIN T 0.029 ug/L (0.0-0.011)
--- NOTE | 2016-11-10 06:30 | NUR ---
Respiratory Pt on RA at beginning of shift, requested to go for walk prior to bedtime; ambulated in hallway for approx. 200 feet with walker for support. Pt reported dyspnea and weakness on exertion, but tolerated fair. On exertion, pt was 89-91% without any oxygen; after 1L applied, pt sats increased to 91-92% with exertion. Once back in bed, pt was 92% on RA, though he began to relax, desaturated to approx. 87-92%. Pt reports feeling as though when he's in bed, his "diaphragm can't expand and his chest is hunched, so he can't take as deep of breaths". Despite encouraging pt to deep breathe, pt unable to maintain saturation above 90%. 1L NC applied to pt with an increase in SPO2 to 92%. Throughout night on CPAP, pt initially on 1L bleed, but repeatedly desaturated to 87-89%, and was unable to maintain adequate saturation with conscientious breathing. Oxygen increased to 2L, with SpO2 of 89-90%; finally increased to 2.5L bleed, and pt maintained saturation between 90-93%. VSS, tele SR 90s with IVCD and AVBI.
[2016-11-10] MEDS ORDERED: 0.9% Sodium Chloride 1,000 ML IV SCH (07:05)
[2016-11-10] MEDS: Albuterol-Ipratropium 3 mL Inhalation Solution NEB SCH ×5 (07:45→20:26)
[2016-11-10] MEDS ORDERED: 0.9% Sodium Chloride 1,000 ML IV ONE (07:57)
[2016-11-10] MEDS: Insulin LISPRO 300 Unit/3 mL Inj SUBQ SCH ×4 (08:25→22:00)
[2016-11-10] MEDS: Azithromycin Inj 500 MG in Dextrose 5% w/Vial Mate 250 ML IV SCH (08:35)
[2016-11-10] MEDS: Isosorbide Mononitrate 30 mg ER24 Tablet PO SCH (08:39)
[2016-11-10] MEDS: cefTRIAXone Inj 2,000 MG in Dextrose 5% Minibag Plus 50 ML IV SCH (10:14)
--- NOTE | 2016-11-10 14:37 | PCM.PNMED ---
Subjective Date of Service Nov 10, 2016 Subjective Patient states that he feels greatly improved compared to admission, and is rapidly approaching baseline strength and stamina. He denies SOB, VILCHIS, chest pain, abdominal pain, diarrhea, or vomiting. No significant overnight events. Comprehensive ROS negative except as outlined above. Exam Vital Signs Vital Sign - Last Date Time Temp Pulse Resp B/P Pulse Ox O2 Delivery O2 Flow Rate FiO2 11/10/16 11:42 83 18 94 Room Air 1.00 11/10/16 11:28 36.4 124/68 Intake and Output 11/09/16 11/09/16 11/10/16 Cumulative From/Thru 15:00 23:00 07:00 11/07/16 22:10 - 11/10/16 06:49 Intake Total 920 ml 776 ml 4312 ml Output Total 825 ml 825 ml 6275 ml Balance 95 ml -49 ml -1963 ml Intake Oral 920 ml 300 ml 2553 ml IV Total 476 ml 1759 ml Output Urine Total 825 ml 825 ml 6275 ml # Voids 10 # Bowel Movements 0 0 Exam Gen: A/O x3 pleasant cooperative gentleman in NAD Neck: Supple, Full ROS, cannot appreciate JVD HEENT: PERRL, EOMI, no scleral icterus, no conjunctival pallor CV: RRR, mixed systolic murmur with both crescendo decrescendo at R sternal border with concurrent holosystolic murmur at L sternal border, no rubs or gallops Resp: Lungs CTA BL, no wheezing rales or rhonchi Chest: AICD palpable in left axilla Abd: Soft, non tender, no organomegaly, BS + 4Q Extr: Edema resolved, no cyanosis or clubbing Skin: Multiple comedones and actinic keratoses Neuro: CN 2-12 grossly intact, no focal neurologic deficit Psych: Pleasant and appropriate mood and affect. IVs and Medications IV Fluids 50 ml NS delivered with IV medication Medications Reviewed: Medications were reviewed in detail Lab and Diagnostics Item Value Date Time Red Blood Count 4.16 mil/mm3 L 11/10/16 0324 Mean Corpuscular Volume 87.5 fL 11/10/16 0324 Mean Corpuscular Hemoglobin 29.8 pg 11/10/164 Mean Corpuscular Hemoglobin Concent 34.1 % 11/10/16 0324 Red Cell Distribution Width 13.0 % 11/10/16 0324 Platelet Count 189 neeraj/L 11/10/16 0324 Neutrophils (%) (Auto) 81.0 % H 11/10/16 0324 Lymphocytes (%) (Auto) 7.3 % L 11/10/16 0324 Monocytes (%) (Auto) 7.5 % 11/10/16 0324 Eosinophils (%) (Auto) 3.7 % 11/10/16 032 Basophils (%) (Auto) 0.2 % 11/10/16 032 Estimat Glomerular Filtration Rate 21 mL/min 11/10/16 1130 Calcium Level 8.2 mg/dL L 11/10/16 1130 Result Diagram: 11/10/1632311/10/16 1130 Microbiology Blood cultures negative at 24 hr Resp PCR negative Nasal MRSA negative X-Rays, CTs and MRIs X-RAY CHEST ONE VIEW, PORTABLE IMPRESSION: Pulmonary edema and/or bibasilar pneumonia. Continued radiographic surveillance to resolution is recommended. Dictated by: Edson Bustillos RRA Interpreted: Carlos Gallardo MD on 11/08/2016 at 9:39 Transcribed by: LIZ on 11/08/2016 at 9:[address] ANGIO CHEST PULMONARY EMBOLISM IMPRESSION: 1. No evidence for central pulmonary embolism. 2. Bilateral groundglass infiltrates and septal thickening suggesting pulmonary edema. 3. There are nodular densities in lungs bilaterally. Superimposed infectious process including atypical pneumonia cannot be excluded. 4. Small right pleural effusion. No significant discrepancy with the overnight associate radiology preliminary report. Dictated by: Carlos Gallardo M.D. on 11/08/2016 at 7:44 Approved by: Carlos Gallardo M.D. on 11/08/2016 at 7:51 CT ABDOMEN AND PELVIS WITH CONTRAST IMPRESSION: 1. Right lower lobe infiltrate and small right effusion suspicious for pneumonia. 2. Small nonobstructive right renal calculi. Mild bilateral perinephric stranding. 3. Diverticulosis. No active diverticulitis. 4. Severe atherosclerosis. 5. Tiny hiatal hernia. 6. Enlarged prostate. Dictated by: Carlos Gallardo M.D. on 11/08/2016 at 7:51 Approved by: Carlos Gallardo M.D. on 11/08/2016 at 7:59 . 12-lead ECG Sinus rhythm rate 93 Prolonged IN interval IVCD, consider atypical LBBB Cardiac Echo Impressions Previously performed Echocardiogram Report from 10/14/2016 Interpretation Summary 1) Mildly enlarged left ventricle with mildly to moderate reduced systolic function (EF about 40%). 2) Basal inferior wall and basal to mid inferolateral wall are akinetic. 3) Normal right ventricular size and function. 4) Moderate aortic stenosis present (valve area 1.1cm2, mean gradient 14.6mmHg, severity ratio 0.30). 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 6) Compared to the Echo done 03/26/2016, aortic stenosis has progressed from mild to moderate range and LV is dilated on today's study. Reading Physician:10: 29 AM Assessment & Plan Patient is an 80 year old male with a history of hypertension, hyperlipidemia, diabetes mellitus, and tobacco dependence presented to emergency department via emergency medical services following due to shortness of breath. Currently being treated for CHF exacerbation likely secondary to pneumonia. Acute hypoxic respiratory failure, POA. improved - Initial vitals shown in ED report oxygen saturation of 91% on nonrebreather unknown volume per minute - Oxygenation much improved with diuresis and DuoNeb - Likely secondary to volume overload from acute exacerbation of CHF described below - Patient does not use oxygen at home. - Continued CPAP at night - DuoNeb Q4 scheduled while awake Acute on chronic systolic congestive heart failure, POA. Improved - Patient has an Echocardiogram from 10/16/2016 showed ejection fraction of 40% (reviewed on admission) - CXR consistent with CHF, reviewed on admission - Continued statin, aspirin, and beta lenny - Patient received Lasix 40 mg IV in the emergency department - Continued at 40 mg IV daily - Patient educated that he must watch his weight regularly and will be referred to the CHF clinic Hypertensive urgency, POA, acute. Improved - Patient's blood pressure at admission was repeatedly in the 200s SYSTOLIC, this seemed to improved after Lasix down to the 170s with expected improvement with continued Lasix therapy - Initial labs fail to reveal any significant end organ damage at this time - Changed Amlodipine to Lisinopril to reduce edema and improve CHF profile - Metoprolol tartrate 25 mg twice per day - Isosorbide mononitrate ER 30 mg once daily Acute kidney injury on Chronic kidney disease stage III, present on admission, stable. - BUN appears approximately at baseline and creatinine of 1.55 near baseline upon presentation - Patient subjected to IV contrast, Vanco + Zosyn, and diuresis resulting in increase in Cr - DC diuresis, holding BENITA, change antibiotics to Ceftriaxone and Azithromycin - Monitor Hospital acquired pneumonia, POA, acute. Active - WBC count 18,200 at admission - Patient hospitalized from 10/16-10/22 - Patient was SIRS positive with white blood cell count 18.2, temperature 35.4, respiratory rate 32, heart rate 91 - CT with results as above - UA fails to reveal urinary tract infection, CT abdomen and pelvis has no acute findings - Procalcitonin elevated upon presentation - Patient received Zosyn, vancomycin, and Levaquin in the emergency department double covering the patient for gram positives, gram negatives and atypicals - Ceftriaxone and Azithromycin as patient was responding to CAP regimen and HCAP provides increased risk of progressive HEATHER History of Ventricular tachycardia, POA. Active - Implantable cardioverter defibrillator placed on 10/19/16 for secondary prevention. - Continue outpatient amiodarone 400 mg twice per day - AICD in place Chronic Coronary artery disease, POA. Active - Recent coronary catheterization revealed two-vessel disease (occluded mid circumflex with left to right collaterals and right to left collaterals; as well as intact LAD (left anterior descending) distribution; and occluded proximal RCA with [id number] collaterals to the distal RCA (right coronary artery) into an RV (right ventricle) branch) but no critical stenoses. -Continue rosuvastatin 40 mg daily due to less interaction with amiodarone -Continue metoprolol tartrate 25 mg twice per day and continued aspirin. Chronic Obstructive sleep apnea - Continue CPAP Chronic Aortic stenosis and mitral regurgitation, moderate - Will need continued monitoring as an outpatient - Follow up with cardiology as above - Attempt to avoid hypotension to maintain cardiac output Diabetes mellitus type II, present on admission, stable. Most recent A1c at 7.0 in Sep, 2016 - Metformin held during hospitalization and was given low dose correctional scale Lispro Hyperlipidemia, present on admission, stable. - Continue rosuvastatin 40 mg daily Disposition: Patient will likely be able to DC tomorrow pending improvement of HEATHER Pain Evaluation: Adequate Pain Control GI Prophylaxis: Not indicated VTE Prophylaxis: Sub-Q Heparin (Unfractionated), SCDs VTE Mechanical Devices: Intermittant Pneumatic CD Resuscitation Status: CPR: Attempt Resuscitation Eliezer Malloy DO Nov 10, 2016 14:37
--- NOTE | 2016-11-10 15:42 | DRSVH ---
PROCEDURE: X-RAY CHEST, TWO VIEWS ([id number]) INDICATIONS: shortness of breath TECHNIQUE: 2 views of the chest were acquired. COMPARISON: [facility], CT, CT ANGIO CHEST PE, 11/07/2016, 22:59. [facility] , CR, XR CHEST 2VW, 10/20/2016, 6:32. FINDINGS: Surgical changes and devices: Stable positioning of left chest AICD. Lungs and pleura: Bibasilar patchy airspace opacities are present. Small bilateral pleural effusions or pleural scarring. Mediastinum: Mediastinal contours are normal. Heart size is normal. Bones and chest wall: No suspicious bony abnormalities. Soft tissues appear unremarkable. IMPRESSION: Bibasilar atelectasis versus aspiration or pneumonia. Recommend clinical correlation. Dictated by: Edson Bustillos RRA Interpreted: Carlos Gallardo MD on 11/10/2016 at 15:20 Approved by: Carlos Gallardo M.D. on 11/10/2016 at 15:40
--- NOTE | 2016-11-10 16:56 | NUR ---
Activity/Respiratory Pt up to chair for most of day. Maintained sats above 90%. Pt up with PT ambulated in hallway. Pt c/o generalized weakness and feels a little unsteady still on his feet. PT recommends SBA for safety and that pt use a walker for balance.
[2016-11-11] VITALS (8 sets, daily range): BP systolic 140–169; BP diastolic 61–78; PULSE 67–90; RESP 18–20; O2SAT 90–94
[2016-11-11] MEDS: Albuterol-Ipratropium 3 mL Inhalation Solution NEB SCH ×3 (00:30→13:02)
[2016-11-11 04:43] LABS: BASOPHILS % (AUTO) 0.4 % (0-3); EOSINOPHILS % (AUTO) 5.7 % (0-5); MONOCYTES % (AUTO) 9.8 % (4-12); Mean Corpuscular Hemoglobin 30.2 pg (27.0-35.0); Mean Corpuscular Volume 88.1 fL (81-100); NEUTROPHILS % (AUTO) 72.4 % (40-74); Platelet Count 192 bil/L (150-400)
[2016-11-11 04:56] LABS: INR 1.16 ratio
[2016-11-11 05:31] LABS: Magnesium 2.1 mg/dL (1.6-2.6); Phosphorus 4.4 mg/dL (2.5-4.9)
--- NOTE | 2016-11-11 05:57 | NUR ---
BPs/Respiratory Pt's SBP remained 140s-160s during the shift. Pt had no c/o pain. Pt denied SOB and remained on CPAP throughout the night with SpO2 90-94%. When continuous pulse ox went off it would remind pt to take a deep breath.
[2016-11-11] MEDS: Insulin LISPRO 300 Unit/3 mL Inj SUBQ SCH ×2 (08:00→12:32)
[2016-11-11] MEDS ORDERED: 0.9% Sodium Chloride 1,000 ML IV ONE (08:05)
[2016-11-11] MEDS: cefTRIAXone Inj 2,000 MG in Dextrose 5% Minibag Plus 50 ML IV SCH (08:37)
[2016-11-11] MEDS: Isosorbide Mononitrate 30 mg ER24 Tablet PO SCH (08:53)
[2016-11-11] MEDS: Sodium Chloride LOK Flush 10 mL Syringe IVFLUSH SCH (08:54)
--- NOTE | 2016-11-11 11:07 | DRSVH ---
PROCEDURE: X-RAY CHEST ONE VIEW, PORTABLE ([id number]) INDICATIONS: pneumonia TECHNIQUE: One view of the chest was acquired. COMPARISON: [facility], CR, XR CHEST 2VW, 11/10/2016, 14:43. FINDINGS: Surgical changes and devices: Stable positioning of left chest AICD. Lungs and pleura: Bibasilar patchy airspace opacities are present. Small bilateral pleural effusions or pleural scarring. Mediastinum: Mediastinal contours are normal. Heart size is normal. Bones and chest wall: No suspicious bony abnormalities. Soft tissues appear unremarkable. IMPRESSION: Persistent bibasilar air space opacities not significantly changed. Dictated by: Edson Bustillos [facility] Interpreted: Jules Oh MD on 11/11/2016 at 9:25 Approved by: Jules Oh M.D. on 11/11/2016 at 11:04
--- NOTE | 2016-11-11 12:27 | NUR ---
ROBB Signed @ 1120AM
[2016-11-11] MEDS ORDERED: AMOX-366 PO (13:55)
--- NOTE | 2016-11-11 14:04 | PCM.DIMED ---
Yunior Yancey DO 11/11/16 1404: Discharge Instructions Date of Service Nov 11, 2016 Dates of Hospitalization Nov 07, 2016 at 23:59 Discharge Diagnosis Discharge Diagnosis Acute hypoxic respiratory failure Acute on chronic systolic congestive heart failure Hypertensive urgency Acute kidney injury on Chronic kidney disease stage III Hospital acquired pneumonia History of Ventricular tachycardia Chronic Coronary artery disease Chronic Obstructive sleep apnea Chronic Aortic stenosis and mitral regurgitation, moderate Diabetes mellitus type II Hyperlipidemia Medication Instructions Additional med instructions Augmentin 875mg taken by mouth twice daily Furosemide 20mg by mouth daily; start taking this medication Tuesday morning Diet Discharge Diet: Heart Healthy Activity Discharge Activity: No restrictions Call your provider Call your provider for: Fever or Chills, Shortness of breath Patient Instructions Patient Instructions You were admitted due to shortness of breath that was caused by pneumonia and heart failure. You were treated with IV antibiotics and given additional water pills with improvement of your symptoms. However, these medications, along with contrast, caused some injury to your kidneys that is already clearing up. Please continue to drink fluids but be very careful not to overdue it. If you become short of breath please take a water pill and call Dr. Shane. If you become severely short of breath please seek immediate medical attention. Follow-up plan Please follow up with Dr. Shane within 1 week Keep your appointment with Dr. Maldonado on Tuesday Please also follow-up with the CHF clinic Follow-up Provider: Ramirez Shane MD Follow-up with PCP in: 1 week Provider: Mars Maldonado MD Follow-up in: 1 week (tuesday) CHF Clinic: 1 week Cinda Suárez DO 11/11/16 1835: Discharge Instructions Attending's Statement The patient was seen and examined together with Dr. Yancey on 11/11/16 and I agree with the history, exam and plan as outlined in the note above. Yunior Yancey DO Nov 11, 2016 14:04 Cinda Suárez DO Nov 11, 2016 18:35
[2016-11-11] MEDS ORDERED: FURO-129 PO (14:07)
--- NOTE | 2016-11-11 14:21 | NUR ---
Social Work: Discharge Data: Pt is on day 4 of hospitalization. EMR reviewed. D/C orders are in for home. PT recommending outpt PT. No d/c planning needs at this time. [facility] will continue to follow if needs arise. Assessment: Pt who is independent at baseline. Plan: Pt will d/c home via POV today. No d/c planning needs at this time. [facility] will continue to follow if needs arise. ABBY Shaw
--- NOTE | 2016-11-11 15:30 | NUR ---
Discharge Pt received education regarding medications, diagnoses, and care plans. Pt demonstrated understanding of teaching. Family at the bedside participated as well. Telemetry leads were removed. IVs were removed. Pt and RN both signed last page of discharge packet. Pt left with all personal belongings around 1510, escorted down to his vehicle by a staff member.
--- NOTE | 2016-11-11 18:19 | PCM.DC.MED ---
Discharge Summary Date of Service Nov 11, 2016 Dates of Hospitalization Date of Hospital Admission Nov 07, 2016 at 23:59 Date of Discharge: Nov 11, 2016 Providers: Admitting Physician: Safia Medley DO Primary Care Physician: Ramirez Shane MD Attending Physician: Safia Medley DO Diagnosis at Time of Discharge Diagnosis at Time of Discharge Acute hypoxic respiratory failure Acute on chronic systolic congestive heart failure Hypertensive urgency Acute kidney injury on Chronic kidney disease stage III Hospital acquired pneumonia History of Ventricular tachycardia Chronic Coronary artery disease Chronic Obstructive sleep apnea Chronic Aortic stenosis and mitral regurgitation, moderate Diabetes mellitus type II Hyperlipidemia Procedures XRay, CTs & MRIs X-RAY CHEST ONE VIEW, PORTABLE IMPRESSION: Pulmonary edema and/or bibasilar pneumonia. Continued radiographic surveillance to resolution is recommended. Dictated by: Edson Bustillos RRA Interpreted: Carlos Gallardo MD on 11/08/2016 at 9:39 Transcribed by: LIZ on 11/08/2016 at 9:[address] ANGIO CHEST PULMONARY EMBOLISM IMPRESSION: 1. No evidence for central pulmonary embolism. 2. Bilateral groundglass infiltrates and septal thickening suggesting pulmonary edema. 3. There are nodular densities in lungs bilaterally. Superimposed infectious process including atypical pneumonia cannot be excluded. 4. Small right pleural effusion. No significant discrepancy with the shift supervisor film processing radiology preliminary report. Dictated by: Carlos Gallardo M.D. on 11/08/2016 at 7:44 Approved by: Carlos Gallardo M.D. on 11/08/2016 at 7:51 CT ABDOMEN AND PELVIS WITH CONTRAST IMPRESSION: 1. Right lower lobe infiltrate and small right effusion suspicious for pneumonia. 2. Small nonobstructive right renal calculi. Mild bilateral perinephric stranding. 3. Diverticulosis. No active diverticulitis. 4. Severe atherosclerosis. 5. Tiny hiatal hernia. 6. Enlarged prostate. Dictated by: Carlos Gallardo M.D. on 11/08/2016 at 7:51 Approved by: Carlos Gallardo M.D. on 11/08/2016 at 7:59 . ECG 12 Lead Sinus rhythm rate 93 Prolonged MN interval IVCD, consider atypical LBBB Cardiac Echo Impression Previously performed Echocardiogram Report from 10/14/2016 Interpretation Summary 1) Mildly enlarged left ventricle with mildly to moderate reduced systolic function (EF about 40%). 2) Basal inferior wall and basal to mid inferolateral wall are akinetic. 3) Normal right ventricular size and function. 4) Moderate aortic stenosis present (valve area 1.1cm2, mean gradient 14.6mmHg, severity ratio 0.30). 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 6) Compared to the Echo done 03/26/2016, aortic stenosis has progressed from mild to moderate range and LV is dilated on today's study. Reading Physician:10: 29 AM Brief History Taken from History and Physical composed by Dr. Gaston 81-year-old man with past medical history remarkable for ventricular tachycardia , coronary artery disease, systolic congestive heart failure presents with 4 hours of shortness of breath with associated diaphoresis. The patient states that approximately 8 PM on November 07 he became short of breath and kind of cold and clammy sweat. The patient states that he has had a runny nose recently but denies any fever or chills, or cough. The patient states that last Tuesday he was in his PCP Dr. Shane's office were he was told that he had increased leg swelling however he denies increased weight gain recently. The patient denies orthopnea at this time. 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 The patient was hospitalized last month for AICD placement for ventricular tachycardia were not echo was performed and it was noted to have an ejection fraction of 40%. . Hospital Course Patient is an 80 year old male with a history of hypertension, hyperlipidemia, diabetes mellitus, and tobacco dependence presented to emergency department via emergency medical services following due to shortness of breath. Currently being treated for CHF exacerbation likely secondary to pneumonia. Patient was placed on IV antibiotics with active diuresis. The patient then developed to some expected degree of HEATHER given his early antibiotic and contrast exposure; all nephrotoxic medications and gentle hydration which resulted in rapid correction of his deranged Cr. The patient was greatly symptomatically improved with an encouraging down trending Cr prior to DC. The patient will continue Augmentin for 3 more days in order to complete the treatment for his pneumonia. The patient Lasix has been changed to 20 mg by mouth daily. The patient should follow-up with his vice president process as well as with the CHF clinic. For full hospital course see below: Acute hypoxic respiratory failure, POA. improved - Initial vitals shown in ED report oxygen saturation of 91% on nonrebreather unknown volume per minute - Oxygenation much improved with diuresis and DuoNeb - Likely secondary to volume overload from acute exacerbation of CHF described below - Patient does not use oxygen at home. - Continued CPAP at night - DuoNeb Q4 scheduled while awake initially, transitioned to PRN once symptoms improved Acute on chronic systolic congestive heart failure, POA. Improved - Patient has an Echocardiogram from 10/16/2016 showed ejection fraction of 40% (reviewed on admission) - CXR consistent with CHF, reviewed on admission - Continued statin, aspirin, and beta lenny - Patient received Lasix 40 mg IV in the emergency department - Continued at 40 mg IV daily - Patient educated that he must watch his weight regularly and will be referred to the CHF clinic Hypertensive urgency, POA, acute. Improved - Patient's blood pressure at admission was repeatedly in the 200s SYSTOLIC, this seemed to improved after Lasix down to the 170s - Initial labs fail to reveal any significant end organ damage at that time - Changed Amlodipine to Lisinopril to reduce edema and improve CHF profile - Metoprolol tartrate 25 mg twice per day - Isosorbide mononitrate ER 30 mg once daily Acute kidney injury on Chronic kidney disease stage III, present on admission, stable. - BUN appears approximately at baseline and creatinine of 1.55 near baseline upon presentation - Patient subjected to IV contrast, Vanco + Zosyn, and diuresis resulting in increase in Cr - Following worsening HEATHER we DC'd diuresis, held BENITA, changed antibiotics to Ceftriaxone and Azithromycin - Continued to monitor Hospital acquired pneumonia, POA, acute. Active - WBC count 18,200 at admission - Patient hospitalized from 10/16-10/22 - Patient was SIRS positive with white blood cell count 18.2, temperature 35.4, respiratory rate 32, heart rate 91 on admission - CT with results as above - UA failed to reveal urinary tract infection, CT abdomen and pelvis has no acute findings - Procalcitonin elevated upon presentation - Patient received Zosyn, vancomycin, and Levaquin in the emergency department double covering the patient for gram positives, gram negatives and atypicals - Ceftriaxone and Azithromycin as patient was responding to CAP regimen and HCAP provided increased risk of progressive HEATHER History of Ventricular tachycardia, POA. Active - Implantable cardioverter defibrillator placed on 10/19/16 for secondary prevention. - Continued outpatient amiodarone 400 mg twice per day - AICD in place Chronic Coronary artery disease, POA. Active - Recent coronary catheterization revealed two-vessel disease (occluded mid circumflex with left to right collaterals and right to left collaterals; as well as intact LAD (left anterior descending) distribution; and occluded proximal RCA with [id number] collaterals to the distal RCA (right coronary artery) into an RV (right ventricle) branch) but no critical stenoses. -Continue rosuvastatin 40 mg daily due to less interaction with amiodarone -Continue metoprolol tartrate 25 mg twice per day and continued aspirin. Chronic Obstructive sleep apnea - Continue CPAP Chronic Aortic stenosis and mitral regurgitation, moderate - Will need continued monitoring as an outpatient - Follow up with cardiology as above - Attempt to avoid hypotension to maintain cardiac output Diabetes mellitus type II, present on admission, stable. Most recent A1c at 7.0 in Sep, 2016 - Metformin held during hospitalization and was given low dose correctional scale Lispro Hyperlipidemia, present on admission, stable. - Continued rosuvastatin 40 mg daily Exam Vital Signs (Last) Date Time Temp Pulse Resp B/P Pulse Ox O2 Delivery O2 Flow Rate FiO2 11/11/16 13:02 74 18 93 Room Air 11/11/16 12:24 36.6 140/61 11/10/16 20:29 1.00 Exam Gen: A/O x3 pleasant cooperative gentleman in NAD Neck: Supple, Full ROS, cannot appreciate JVD HEENT: PERRL, EOMI, no scleral icterus, no conjunctival pallor CV: RRR, mixed systolic murmur with both crescendo decrescendo at R sternal border with concurrent holosystolic murmur at L sternal border, no rubs or gallops Resp: Lungs CTA BL, no wheezing rales or rhonchi Chest: AICD palpable in left axilla Abd: Soft, non tender, no organomegaly, BS + 4Q Extr: Edema resolved, no cyanosis or clubbing Skin: Multiple comedones and actinic keratoses Neuro: CN 2-12 grossly intact, no focal neurologic deficit Psych: Pleasant and appropriate mood and affect. . Test 11/07/16 21:50 11/07/16 22:09 11/07/16 22:49 11/08/16 02:57 Band Neutrophils % 0% (1-5) D-Dimer 0.76mg/L FEU (<0.50) Hemoglobin A1c 6.7% (4.8-5.6) Thyroid Stimulating Hormone (TSH) 3.470uIU/mL (0.450-4.500) Urine Color Straw (YELLOW) Urine Appearance Clear (CLEAR,HAZY) Urine pH 7.5 (5.0-8.0) Urine Specific [place] 1.015 (1.003-1.035) Urine Protein >300mg/dL (NEG,TRACE) Urine Glucose (UA) 100mg/dL (NEGATIVE) Urine Ketones Negativemg/dL (NEGATIVE) Urine Occult Blood Trace (NEGATIVE) Urine Nitrite Negative (NEGATIVE) Urine Bilirubin Negative (NEGATIVE) Urine Urobilinogen Normalmg/dL (NORMAL) Urine Leukocyte Esterase Negative (NEGATIVE) Urine RBC 0-2/hpf (0-2) Urine WBC 0-5/hpf (0-5) Urine Epithelial Cells Occasional/hpf (NONE-MOD) Urine Crystals None seen (NONE SEEN) Urine Bacteria Few/hpf (NONE-FEW) Urine Hyaline Casts None/lpf (NONE) Urine Granular Casts None seen (NONE SEEN) Urine Waxy Casts None seen (NONE SEEN) Urine Red Blood Cell Casts None seen (NONE SEEN) Urine White Blood Cell Casts None seen (NONE SEEN) Urine Mucus None seen (None Seen) Urine Trichomonas None seen (NONE SEEN) Urine Yeast None (NONE SEEN) Urinalysis Comment None Urine Culture Reflexed Not indicated Lactic Acid Level 1.3mmol/L (0.4-2.0) Triglycerides Level 91mg/dL (0-149) Cholesterol Level 125mg/dL (100-199) LDL Cholesterol, Calculated 53.800mg/dL (0-99) VLDL Cholesterol 18.200mg/dL HDL Cholesterol 53mg/dL (>39) Cholesterol/HDL Ratio 2.36 (0.0-4.4) Test 11/09/16 03:05 11/10/16 03:24 11/11/16 04:10 11/11/16 13:10 Pro-B-Type Natriuretic Peptide 3779pg/mL (0-486) Troponin T 0.029ug/L (0.0-0.011) White Blood Count 7.8th/mm3 (3.8-10.1) Red Blood Count 3.87mil/mm3 (4.40-5.80) Hemoglobin 11.7g/dL (13.8-17.2) Hematocrit 34.1% (41.0-50.0) Mean Corpuscular Volume 88.1fL (81-100) Mean Corpuscular Hemoglobin 30.2pg (27.0-35.0) Mean Corpuscular Hemoglobin Concent 34.3% (32.0-37.0) Red Cell Distribution Width 13.0% (12.3-15.4) Platelet Count 192bil/L (150-400) Neutrophils (%) (Auto) 72.4% (40-74) Lymphocytes (%) (Auto) 11.6% (14-46) Monocytes (%) (Auto) 9.8% (4-12) Eosinophils (%) (Auto) 5.7% (0-5) Basophils (%) (Auto) 0.4% (0-3) Prothrombin Time 12.4sec (8.1-12.5) Prothromb Time International Ratio 1.16ratio Phosphorus Level 4.4mg/dL (2.5-4.9) Magnesium Level 2.1mg/dL (1.6-2.6) Total Bilirubin 0.4mg/dL (0.0-1.2) Aspartate Amino Transf (AST/SGOT) 48U/L (0-50) Alanine Aminotransferase (ALT/SGPT) 46U/L (0-44) Alkaline Phosphatase 85U/L (25-160) Total Protein 6.0g/dL (6.4-8.4) Albumin 3.4g/dL (3.4-5.0) Procalcitonin 0.42ng/mL (0.00-0.08) Sodium Level 135mEq/L (134-144) Potassium Level 4.3mEq/L (3.5-5.2) Chloride Level 97mEq/L (97-108) Carbon Dioxide Level 22mmol/L (18-29) Blood Urea Nitrogen 47mg/dL (8-27) Creatinine 2.36mg/dL (0.76-1.27) Estimat Glomerular Filtration Rate 28mL/min (>59) Glucose Level 212mg/dL (60-99) Calcium Level 8.1mg/dL (8.5-10.1) Microbiology Results Blood cultures negative at 48 hr Resp PCR negative Nasal MRSA negative Discharge Medications Discharge Medications Amiodarone (Amiodarone) 200 Mg Tablet 400 MG PO DAILY Take 2 tablets by mouth once daily for 6 days and then take 1 tablet by mouth once daily there after Prescribed by: JOSE BRUNER DO Amlodipine (Amlodipine) 5 Mg Tablet 5 MG PO QAM (Reported) Amoxicillin/Clav K 875-125 mg (Augmentin 875-125 mg) 1 Each Tablet 1 TABLET PO BID Prescribed by: BRIA ROJAS DO Aspirin (Aspirin) 81 Mg Tablet 81 MG PO HS (Reported) Furosemide (Lasix) 20 Mg Tablet 20 MG PO DAILY Prescribed by: BRIA ROJAS DO Isosorbide MN ER (Isosorbide MN ER) 30 Mg Tab.er.24h 30 MG PO DAILY Prescribed by: JOSE BRUNER DO Metformin (Metformin) 500 Mg Tablet 250 MG PO BID (Reported) Metoprolol Tartrate (Metoprolol Tartrate) 25 Mg Tablet 25 MG PO BID Prescribed by: JOSE BRUNER DO Multivitamin (Multivitamins) 1 Each Capsule 1 EACH PO DAILY (Reported) [place]-3/Dha/Epa/Fish Oil (Fish Oil 1,000 mg Softgel) 1 Each Capsule 1 EACH PO DAILY (Reported) Rosuvastatin Calcium (Crestor) 10 Mg Tablet 40 MG PO DAILY Prescribed by: JOSE BRUNER DO As needed Nitroglycerin SL (Nitrostat) 0.4 Mg Tab.subl 0.4 MG SL Q5MIN PRN PRN For Chest Pain IF SBP > 90 Prescribed by: JOSE BRUNER DO Additional med instructions Augmentin 875mg taken by mouth twice daily Furosemide 20mg by mouth daily; start taking this medication Tuesday morning Followup Plan Disposition: Home Follow-up plan Please follow up with Dr. Shane within 1 week Keep your appointment with Dr. Maldonado on Tuesday Please also follow-up with the CHF clinic Discharge Diet: Heart Healthy Discharge Activity: No restrictions Patient Instructions You were admitted due to shortness of breath that was caused by pneumonia and heart failure. You were treated with IV antibiotics and given additional water pills with improvement of your symptoms. However, these medications, along with contrast, caused some injury to your kidneys that is already clearing up. Please continue to drink fluids but be very careful not to overdue it. If you become short of breath please take a water pill and call Dr. Shane. If you become severely short of breath please seek immediate medical attention. Follow-up Provider: Ramirez Shane MD Follow-up with PCP in: 1 week Provider: Mars Maldonado MD Follow-up in: 1 week (tuesday) CHF Clinic: 1 week Time spent Greater than 35 minutes Attending Statement The patient was seen and examined together with Dr. Rojas and Dr Malloy on and I have added additional information to the note above. copies to: Mars Maldonado MD; Ramriez Shane MD, David E DO Nov 11, 2016 18:19 Cinda Suárez DO Nov 11, 2016 18:45
--- NOTE | 2016-11-15 16:16 | NUR ---
CHF Discharge Follow up phone call/ CHF Clinic: Patient called at home. Stated that he feels well. He has all his needed medications. He saw Dr. Maldonado at Cardiology today. He is weighing himself daily and is losing weight. Home weight today was 208.6 lbs, yesterday it was 209.2 lbs. Stated understanding to bring his home medications at his CHF Clinic appt [place] [facility] [place]16 at 1400 with Clint CAMACHO
== END 2016-11-11 15:32 | disposition home or self-care (01) | DRG 291 ==
LOC: EDBD 21:50 → SED 21:50 → EDUNIT# 21:50 → PCC 23:59
PROVIDERS: ADMIT Internal Medicine; ATTEND Internal Medicine
DX: I50.23 Acute on chronic systolic (congestive) heart failure (principal); J96.01 Acute respiratory failure with hypoxia; J18.9 Pneumonia, unspecified organism; N17.9 Acute kidney failure, unspecified; Y95 Nosocomial condition; N18.3 Chronic kidney disease, stage 3 (moderate); I16.0 Hypertensive urgency; I12.9 Hypertensive chronic kidney disease with stage 1 through stage 4 chronic kidney disease, or unspecified chronic kidney disease; I25.10 Atherosclerotic heart disease of native coronary artery without angina pectoris; G47.33 Obstructive sleep apnea (adult) (pediatric); E11.9 Type 2 diabetes mellitus without complications; E78.5 Hyperlipidemia, unspecified; F17.210 Nicotine dependence, cigarettes, uncomplicated; Z95.810 Presence of automatic (implantable) cardiac defibrillator; Z79.84 Long term (current) use of oral hypoglycemic drugs